=== PATIENT | male | born 1950 | race Caucasian/White ===

== ENCOUNTER → 2016-06-16 | Outpatient (CLI) | payer OTHER | LOC: FIMAGING 08:42 | PROVIDERS: ATTEND Nurse Practitioner | DX: R19.01 Right upper quadrant abdominal swelling, mass and lump (principal); N20.0 Calculus of kidney; B19.10 Unspecified viral hepatitis B without hepatic coma; I71.4 Abdominal aortic aneurysm, without rupture; B20 Human immunodeficiency virus [HIV] disease ==

== ENCOUNTER → 2016-12-07 | Outpatient (CLI) | payer OTHER | LOC: FIMAGING 13:14 | PROVIDERS: ATTEND Nurse Practitioner | DX: M50.31 Other cervical disc degeneration, high cervical region (principal); M50.321 Other cervical disc degeneration at C4-C5 level; M43.12 Spondylolisthesis, cervical region; M99.71 Connective tissue and disc stenosis of intervertebral foramina of cervical region ==

== ENCOUNTER 2016-12-10 17:27 | Inpatient (IN) | payer OTHER ==
--- NOTE | 2016-12-10 17:56 | EDPHY ---
H & P Smoking Status: Former smoker Time Seen by Provider: 12/10/16 17:39 HPI/ROS: CHIEF COMPLAINT: Fall, head injury HISTORY OF PRESENT ILLNESS: Patient is a 66-year-old male with multiple medical problems including hepatitis-B, hepatitis-C, HIV and previous PE. He is on warfarin for his previous pulmonary embolus 5 years ago. Patient states he fell sometime last night but he is unsure of the exact mechanism. He does not recall the event. He states that he spent the day cleaning his room. He is found by his brother and brought to the emergency department. Patient complains of mild lower lip pain. He feels mildly fatigued. He has no headache or neck pain. He has ongoing paresthesias in his hands. He denies chest pain. Mild shortness of breath yesterday but it is improved. No abdominal pain. No nausea or vomiting. No pelvic pain. He denies extremity pain. REVIEW OF SYSTEMS: My complete review of systems is negative except as mentioned in the HPI. ( Ashli Jasmine) Past Medical/Surgical History: Includes hepatitis-B, hepatitis-C, HIV, pulmonary embolus, DVT Past surgical history: Rotator cuff repair Social history: The patient does not smoke. Uses marijuana. (Ashli Jasmine ) Physical Exam: 36.4, 88/62, 128, 24, 92% on room air GENERAL: Disheveled, fatigued appearing, no acute distress, alert. HEENT: Patient has an irregular 3 cm laceration on his right scalp. This extends down to the skull. No palpable skull deformity. EYES: PERRLA, EOMI, normal to inspection. ENT: Airway intact, no dental, no malocclusion, no hemotympanum, patient has bruising behind his right ear.Patient has an abrasion to his lower lip. Mild swelling. NECK: The trachea is midline. There is no crepitus. The C-spine is nontender. NEXUS criteria is negative (no midline tenderness, no distracting injury, no altered mental status, no recent alcohol use, no focal neurologic deficit). RESPIRATORY: Clear to auscultation bilaterally, no rales, rhonchi or wheezing. There is no crepitus or palpable rib fractures. CVS: Regular rate and rhythm, no rubs, murmurs, or gallops. ABDOMEN: Soft, nontender, nondistended, normal bowel sounds, no bruising or abrasions. Pelvis: Stable. No tenderness palpation. Hips full range of motion. BACK: lidocaine patches in place. Normal to inspection, no spinal tenderness, no spinal step off, no notable bruising or abrasions. SKIN: Normal color, warm, dry. No pallor or diaphoresis. EXTREMITIES: Right upper extremity: Atraumatic. No visible signs of trauma. No tenderness palpation. Neurovascular intact distally. Left upper extremity: Atraumatic. No visible signs of trauma. No tenderness palpation. Neurovascular intact distally. Right lower extremity: Abrasion on right knee. No patellar tenderness to palpation. No other tenderness palpation. Neurovascular intact distally. The patient is an abrasion on his right toe. Left lower extremity: Atraumatic. No visible signs of trauma. No tenderness palpation. Neurovascular intact distally. NEURO/PSYCH: Alert and oriented x 3, GCS 15, slightly flat affect, normal motor sensory exam. (Ashli Jasmine) Constitutional: Initial Vital Signs Temperature (C) 36.4 C 12/10/16 17:34 Heart Rate 128 H 12/10/16 17:34 Respiratory Rate 24 H 12/10/16 17:34 Blood Pressure 88/62 L 12/10/16 17:34 O2 Sat (%) 92 12/10/16 17:34 O2 Delivery Mode Room Air O2 (L/minute) 2 Allergies/Adverse Reactions: No Known Allergies Allergy (Verified 12/10/16 19:53) Home Medications: Medication Instructions Recorded DULoxetine [Cymbalta 30 MG (RX)] 30 mg PO BID 10/30/12 Entecavir [Baraclude] 1 mg PO DAILY 10/30/12 Ritonavir [Norvir] 100 mg PO DAILY 10/30/12 Testosterone [Androgel] 1 nas TP HS 10/30/12 Atorvastatin Calcium [Atorvastatin 10 mg PO DAILY 12/10/16 Calcium] Darunavir Ethanolate [Prezista] 800 mg PO DAILY 12/10/16 OLANZapine [Olanzapine] 5 mg PO HS 12/10/16 Raltegravir Potassium [Isentress] 400 mg PO BID 12/10/16 Teriparatide [Forteo] 2.4 ml SQ DAILY 12/10/16 Warfarin Sodium [Coumadin 4MG (*)] 2 mg PO TUFR@16 12/10/16 Warfarin Sodium [Coumadin 4MG (*)] 4 mg PO SUMOWETHSA@12/10/16 lamiVUDine [Epivir 150 mg (*)] 150 mg PO HS 12/10/16 Medical Decision Making - Diagnostics Imaging Results: Imaging Impressions Cervical Spine CT 12/10/16 17:58 Impression: 1. No acute osseous abnormality seen about the cervical spine. 2. Degenerative disk disease along with facet hypertrophy involving the cervical spine as detailed above. 3. Incidental subluxations at C3-C4 and C4-C5 related to underlying facet hypertrophy. Findings discussed with Ashli Jasmine M.D. at 1840 hour, 12/10/2016. Chest X-Ray 12/10/16 17:58 Impression: 1. Decreased inspiration with increase in compressive changes at the lung bases. 2. Possible superimposed patchy infiltrate/pneumonia left base. Consider follow- up chest x-ray with improved inspiration at some point. Head CT 12/10/16 17:58 Impression: 1. Focal band of subarachnoid hemorrhage versus punctate cortical hemorrhage right posterior frontal lobe superior in a parasagittal location. 2. Laceration with soft tissue swelling over the right anterior parietal to posterior frontal bone without underlying fracture. If symptoms worsen, additional imaging may be necessary. Findings discussed with Ashli Jasmine at 1840 hour, 12/10/2016. Procedures: Procedure: Laceration repair. Verbal consent was obtained from the patient. The 7 cm laceration on the scalp was anesthetized in the usual fashion. The wound was irrigated, draped and explored to its base with a gloved finger. There were no deep structures involved. No tendon injury was identified. The wound was repaired with 5 0 Prolene, 9 simple interrupted sutures. The wound repair was simple. The procedure was performed by myself. (Channing Coto) ED Course/Re-evaluation: In the emergency department I met the patient on arrival. Noted is abnormal vital signs. I discussed the plan with the nurse. I answered the patient's questions I discussed the plan. Laboratory studies were obtained. Head CT and C-spine were ordered. I more the patient has C-spine from yesterday but this was prior to his fall. He does have numerous changes on his CT imaging from yesterday. I reviewed the patient's laboratory studies. Low sodium at 130. Potassium is 3.9. Creatinine is elevated 1.9. INR is 1.89. His total bili is elevated at 4.3. AST and ALT 90 in 51 respectively. Alk phos 84. Head CT: Please refer the dictated report by Dr. Tod Tenorio. The patient has a right frontal parasagittal cortical bleed. There is no shift. No subdural hematoma. On recheck the patient still was hypotensive with systolic blood pressures in the 80s. Because of this he was given normal saline 500 mL IV. Type and screen was ordered. There was a delay obtaining the CBC. Labs called. The patient's hematocrit is normal. On recheck the patient's pressure is 92/65 with the heart rate 110. Patient is lip clean. His right toe and right knee were cleaned and dressed. Patient's head laceration was repaired by the PA. Please refer to his note. I discussed the results with Dr. Fine from Neurosurgery. I discussed his CT findings as well as an INR 1.89. He will be the imaging. At this time he does not want reversal. I also discussed the case with Dr. Reeder from the hospitalist service. He will admit the patient. I discussed ongoing hypotension with Dr. Reeder. On recheck the patient's blood pressure is 94/68. Heart rate was 107. No lightheadedness or dizziness. Patient has a history of PE as well as DVT. However, his Coumadin is not therapeutic. In addition he has intracranial hemorrhage. This makes a complicated if he does have a pulmonary embolus causing his current symptoms. Ultrasound was ordered by Dr. Reeder. Dr. Reeder ordered antibiotics to cover for possible infection/sepsis. Procedure: Ultrasound guidance: Using the linear probe covered in a sterile sheath, a short axis of the vein was obtained. The vein was completely compressible and was identified as separate from the adjacent non-compressible arterial structure. Under real-time guidance, the introducer needle was observed up to the vein, and then punctured it. Central line placement: The indication for the procedure was hypotension. After verbal informed consent from patient; the risks were explained including bleeding, infection, and collapsed lung. Maximal sterile barrier technique was uses including cap, gown, sterile gloves, large sheet, hand washing and chlorhexidine prep. The area anesthetized with 1% lidocaine. The right IJ was punctured with a 19 gauge finder needle, then a wire introducer was placed, a triple-lumen was placed using Seldinger technique. There were no complications. Blood return low pressure, dark blood. The patient tolerated procedure well. CXR results: Normal placement. No pneumothorax as interpreted by myself. Radiologist interpretation is pending. The procedure was performed by myself. (Ashli Jasmine) Differential Diagnosis: My differential includes but is not limited to concussion, skull fracture, basilar skull fracture, subarachnoid hemorrhage, subdural hematoma, epidural hematoma, spinal injury, pneumothorax, hemothorax, laceration, foreign body, electrolyte abnormality, sugar abnormality, dehydration, encephalopathy (Ashli Jasmine) Critical Care Time: Patient required 45 minutes of critical care time. This is exclusive of any unbundled procedure. This is due the patient's abnormal vital signs, need for frequent rechecks, admission (Ashli Jasmine) - Data Points Laboratory Results: Laboratory Results 12/10/16 17:50 12/10/16 17:50 12/10/16 12/10/16 12/10/16 18:30 17:50 17:50 WBC RBC Hgb Hct MCV MCH MCHC RDW Plt Count MPV Neut % (Auto) Lymph % (Auto) [place] % (Auto) Eos % (Auto) Baso % (Auto) Nucleat RBC Rel Count Absolute Neuts (auto) Absolute Lymphs (auto) Absolute Monos (auto) Absolute Eos (auto) Absolute Basos (auto) Absolute Nucleated RBC Immature Gran % Immature Gran # PT INR APTT Sodium 130 mEq/L L mEq/L (134-144) Potassium 3.9 mEq/L mEq/L (3.5-5.2) Chloride 98 mEq/L mEq/L (97-110) Carbon Dioxide 17 mEq/l L mEq/l (22-31) Anion Gap 15 mEq/L mEq/L (8-16) BUN 26 mg/dL H mg/dL (7-23) Creatinine 1.9 mg/dL H mg/dL (0.7-1.3) Estimated GFR 36 Glucose 109 mg/dL H mg/dL (70-100) Calcium 9.3 mg/dL mg/dL (8.5-10.4) Total Bilirubin 4.3 mg/dL H mg/dL (0.1-1.4) Conjugated Bilirubin 1.7 mg/dL H mg/dL (0.0-0.5) Unconjugated Bilirubin 2.6 mg/dL H mg/dL (0.0-1.1) AST 90 IU/L H IU/L (17-59) ALT 51 IU/L IU/L (21-72) Alkaline Phosphatase 84 IU/L IU/L (38-126) Ammonia < 9.0 uMOL/L L uMOL/L (9.0-30.0) Total Protein 6.6 g/dL g/dL (6.3-8.2) Albumin 3.4 g/dL L g/dL (3.5-5.0) Lipase 32 IU/L IU/L (23-300) Ethyl Alcohol < 10 mg/dL mg/dL (0-10) Patient ABO/Rh A POSITIVE Antibody Screen NEGATIVE 12/10/16 12/10/16 17:50 17:50 WBC 7.65 10^3/uL 10^3/uL (3.80-9.50) RBC 4.60 10^6/uL 10^6/uL (4.40-6.38) Hgb 15.6 g/dL g/dL (13.7-17.5) Hct 44.7 % % (40.0-51.0) MCV 97.2 fL fL (81.5-99.8) MCH 33.9 pg pg (27.9-34.1) MCHC 34.9 g/dL g/dL (32.4-36.7) RDW 13.0 % % (11.5-15.2) Plt Count 94 10^3/uL L 10^3/uL (150-400) MPV 10.4 fL fL (8.7-11.7) Neut % (Auto) 90.7 % H % (39.3-74.2) Lymph % (Auto) 3.4 % L % (15.0-45.0) [place] % (Auto) 4.6 % % (4.5-13.0) Eos % (Auto) 0.0 % L % (0.6-7.6) Baso % (Auto) 1.0 % % (0.3-1.7) Nucleat RBC Rel Count 0.0 % % (0.0-0.2) Absolute Neuts (auto) 6.94 10^3/uL H 10^3/uL (1.70-6.50) Absolute Lymphs (auto) 0.26 10^3/uL L 10^3/uL (1.00-3.00) Absolute Monos (auto) 0.35 10^3/uL 10^3/uL (0.30-0.80) Absolute Eos (auto) 0.00 10^3/uL L 10^3/uL (0.03-0.40) Absolute Basos (auto) 0.08 10^3/uL 10^3/uL (0.02-0.10) Absolute Nucleated RBC 0.00 10^3/uL 10^3/uL (0-0.01) Immature Gran % 0.3 % % (0.0-1.1) Immature Gran # 0.02 10^3/uL 10^3/uL (0.00-0.10) PT 21.8 SEC H SEC (12.0-15.0) INR 1.89 H (0.83-1.16) APTT 47.6 SEC H SEC (23.0-38.0) Sodium Potassium Chloride Carbon Dioxide Anion Gap BUN Creatinine Estimated GFR Glucose Calcium Total Bilirubin Conjugated Bilirubin Unconjugated Bilirubin AST ALT Alkaline Phosphatase Ammonia Total Protein Albumin Lipase Ethyl Alcohol Patient ABO/Rh Antibody Screen Medications Given: Azithromycin 500 mg/ Dextrose 255 mls @ 255 mls/hr IV DAILY MARTIR PRN Reason: Protocol Stop: 01/09/17 21:29 Last Admin: 12/10/16 22:02 Dose: 255 mls Ceftriaxone Sodium/Dextrose (Rocephin 1 Gm (Premix)) 50 mls @ 100 mls/hr IV DAILY MARTIR PRN Reason: Protocol Stop: 01/09/17 21:29 Last Admin: 12/10/16 21:41 Dose: 50 mls Discontinued Medications Fentanyl (Sublimaze) 100 mcg IVP EDNOW ONE Stop: 12/10/16 22:08 Last Admin: 12/10/16 22:08 Dose: 100 mcg Sodium Chloride (Ns) 1,000 mls @ 0 mls/hr IV ONCE ONE; Wide Open PRN Reason: Protocol Stop: 12/10/16 17:59 Last Admin: 12/10/16 18:07 Dose: 1,000 mls Sodium Chloride (Ns) 500 mls @ 0 mls/hr IV ONCE ONE PRN Reason: Wide Open Stop: 12/10/16 18:50 Last Admin: 12/10/16 18:53 Dose: 500 mls Sodium Chloride (Ns) 500 mls @ 1,000 mls/hr IV EDNOW ONE PRN Reason: Protocol Stop: 12/10/16 19:54 Last Admin: 12/10/16 19:26 Dose: 500 mls Sodium Chloride (Ns) 1,000 mls @ 0 mls/hr IV ONCE ONE; Wide Open PRN Reason: Protocol Stop: 12/10/16 21:09 Last Admin: 12/10/16 21:10 Dose: 1,000 mls Departure - Departure Disposition: [facility] Inpatient Acute Clinical Impression: Renal insufficiency, Intracranial hemorrhage Laceration of head Qualifiers: Encounter type: initial encounter Location of open wound of head: scalp Foreign body presence: without foreign body Qualified Code(s): S01.01XA - Laceration without foreign body of scalp, initial encounter Lip laceration Qualifiers: Encounter type: initial encounter Qualified Code(s): S01.511A - Laceration without foreign body of lip, initial encounter Condition: Good
[2016-12-10] MEDS ORDERED: NS 1,000 ML IV ONE ×3 (17:58→23:32)
[2016-12-10 18:11] LABS: % IMMATURE GRANULYOCYTES 0.3 % (0.0-1.1); ABSOLUTE IMMATURE GRANULOCYTES 0.02 10^3/uL (0.00-0.10); ADD DIFF? NO; ADD MORPH? NO; ADD SCAN? YES; ATYPICAL LYMPHOCYTE FLAG 0 (0-99); FRAGMENT RBC FLAG 0 (0-99); HEMATOCRIT 44.7 % (40.0-51.0); HEMOGLOBIN 15.6 g/dL (13.7-17.5); LIPEMIA HEMOLYSIS FLAG 90 (0-99); MEAN CELL HEMOGLOBIN 33.9 pg (27.9-34.1); MEAN CELL HEMOGLOBIN CONCENTR. 34.9 g/dL (32.4-36.7); MEAN CELL VOLUME 97.2 fL (81.5-99.8); MEAN PLATELET VOLUME 10.4 fL (8.7-11.7); PLATELET CLUMPS FLAG 10 (0-99); PLATELET COUNT 94 10^3/uL (150-400)
[2016-12-10 18:12] LABS: LEFT SHIFT FLG 300 (0-99)
[2016-12-10 18:22] LABS: INR 1.89 (0.83-1.16); PROTIME(PATIENT) 21.8 SEC (12.0-15.0)
[2016-12-10 18:23] LABS: APTT 47.6 SEC (23.0-38.0)
[2016-12-10 18:31] LABS: ALANINE AMINOTRANSFERASE 51 IU/L (21-72); ALBUMIN 3.4 g/dL (3.5-5.0); ALKALINE PHOSPHATASE 84 IU/L (38-126); ANION GAP 15 mEq/L (8-16); ASPARTATE AMINOTRANSFERASE 90 IU/L (17-59); BILIRUBIN,TOTAL 4.3 mg/dL (0.1-1.4); BILIRUBIN-CONJUGATED 1.7 mg/dL (0.0-0.5); BILIRUBIN-UNCONJUGATED 2.6 mg/dL (0.0-1.1); CALCIUM 9.3 mg/dL (8.5-10.4); CARBON DIOXIDE 17 mEq/l (22-31); CHLORIDE 98 mEq/L (97-110); CREATININE 1.9 mg/dL (0.7-1.3); ETHANOL SERUM < 10 mg/dL (0-10); GLOMERULAR FILTRATION RATE 36; GLUCOSE 109 mg/dL (70-100); POTASSIUM 3.9 mEq/L (3.5-5.2); SODIUM 130 mEq/L (134-144); TOTAL PROTEIN 6.6 g/dL (6.3-8.2)
[2016-12-10] MEDS ORDERED: NS 500 ML IV ONE ×2 (18:49→19:25)
[2016-12-10 19:06] LABS: SCAN NEGATIVE
[2016-12-10] MEDS ORDERED: ONDANSETRON 4 MG/2 ML VIAL IVP PRN (21:33)
[2016-12-10] MEDS ORDERED: ONDANSETRON DISINTEGRATING 4 MG TAB PO PRN (21:33)
[2016-12-10] MEDS ORDERED: NS 1,000 ML IV SCH (21:45)
[2016-12-10] MEDS: AZITHROMYCIN IV 500 MG in D5W 250 ML IV SCH (22:02)
[2016-12-10] MEDS ORDERED: fentaNYL 100 MCG/2 ML INJ IVP ONE (22:07)
[2016-12-10] MEDS ORDERED: fentaNYL 100 MCG/2 ML INJ ONE (22:08)
--- NOTE | 2016-12-10 22:18 | GHP ---
[f rep st] HISTORY AND PHYSICAL DATE OF ADMISSION: 12/10/2016 HISTORY OF PRESENT ILLNESS: The patient is a pleasant 66-year-old gentleman with history of hepatit is C, HIV and PE for which he takes Coumadin. He presented to the ER with a fall and headache. The patient sounds like he had a fall last evening on the way walking to the bathroom. He denied antec edent chest pain, palpitations or loss of consciousness. He does not have a history of coronary dis ease but he does have hyperlipidemia. It is not clear that there was loss of consciousness but he d oes not recall the event. He had sustained a fairly large laceration. Today, he spent some time cl eaning his room. His [id number] brought him to the emergency department. In the emergency depa rtment, he had a CT scan of his head which showed a focal band of subarachnoid hemorrhage versus pun ctate cortical hemorrhage in the right posterior frontal lobe in the parasagittal location as well a s a laceration. His emergency department course was remarkable for tachycardia and hypotension. The patient present ed with blood pressure of 88/62 and he has been hovering in the 90s with heart rates in the low 100s . His INR is 1.9. Further history reveals that the patient felt some pain in his scapula in the back. It is not clear which side. He said he feels restricted when he tries to take a deep breath. He states this is no t previously to what his PE was. He has not had sputum but he has had a dry cough. He has not had fever. He has not had urinary sym ptoms. He does not have abdominal pain. In the emergency department, he received a 3000 mL bolus. Subsequently, a venous lactate was checke d after being in the ER for a few hours and it is elevated at 2.9. REVIEW OF SYSTEMS: Complete 10-point review of systems conducted and negative except as noted in th e HPI. PAST MEDICAL HISTORY: 1. Pulmonary embolism with pulmonary infarct in 2012, on warfarin. 2. Hepatitis C. 3. Status post treatment. 4. Hepatitis B. 5. HIV without AIDS. 6. Chronic anemia. SOCIAL HISTORY: He is . Nonsmoker. Minimal alcohol. ALLERGIES: No known drug allergies. HOME MEDICATIONS: Atorvastatin, warfarin, darunavir, duloxetine, entecavir, lamivudine, olanzapine, raltegravir, ritonavir, teriparatide, testosterone. FAMILY HISTORY: Reviewed and unremarkable. PHYSICAL EXAMINATION: VITAL SIGNS: Presenting vital signs: 36.4, blood pressure 88/62, pulse 120, breathing 24 times a minute, 92% on room air. GENERAL: No acute distress. Diaphoretic. HEENT: He has a fairly large laceration on his head that is sutured. . His oropharynx is other salvador clear. NECK: Supple without lymphadenopathy or JVD. LUNGS: Crackly bilaterally. HEART: S1 , S2. Tachycardic. ABDOMEN: Soft, nontender, nondistended. LOWER EXTREMITIES: Without edema. C rubi nontender. SKIN: Without rash. NEUROLOGIC: Nonfocal. LABORATORY DATA: White count 7.6, hematocrit 44, platelets are 94, thrombocytopenia is not new. IN R is 1.9. Venous lactate is elevated at 2.9. Sodium 130, potassium 3.9, chloride 98, bicarb 17, BU N 26, creatinine 1.9, glucose 109. Total bilirubin is 4.3, conjugated is 1.7. AST is elevated. Al kaline phosphatase is normal. Ammonia is less than 19. UA is pending. Alcohol level is negative. Head CT is as discussed in the HPI. Chest x-ray, interpreted by me, shows possible patchy infiltra te at the left base. C-spine CT shows no acute osseous abnormality. I discussed the case with Dr. Ashli Jasmine. ASSESSMENT/PLAN: A 66-year-old gentleman presents with a fall, subarachnoid hemorrhage, head lacera tion, acute kidney injury, elevated bilirubin and likely sepsis. 1. Sepsis. Source is unclear, possibly lungs, may be his right upper quadrant. I will cover him w ith ceftriaxone and azithromycin for community-acquired pneumonia and perform right upper quadrant u ltrasound. Blood cultures have been drawn. He has been bolused 3 L which is adequate for his sepsi s. Venous lactate is elevated; we will follow it. 2. Question pulmonary embolism. An alternative explanation could be syncope as a result of pulmona ry embolism. Hs INR is 1.9. I will not put him on a heparin drip. I am going to repeat a CT, ultr asound of his legs tonight, V/Q scan in the morning and follow. Certainly, if he has a stable bleed and evidence of a large pulmonary embolism with pulmonary hypertension, then a heparin drip could b e indicated. I will also check an echocardiogram. 3. Elevated bilirubin. Right upper quadrant ultrasound. 4. Human immunodeficiency virus. The patient does not appear to have acquired immunodeficiency syn drome. We will continue his retroviral therapy. 5. Head laceration. Sutures placed. 6. Subarachnoid hemorrhage. Neurosurgery will see the patient in the morning. This is a nonoperat camacho event. 7. Prophylaxis. Pharmacologic prophylaxis contraindicated for the reasons detailed above. 8. Anion gap acidosis. This is mild, likely secondary to sepsis and/or kidney injury. 9. Kidney injury, hypoperfused. We will give him IV fluids. Repeat in the morning. 10. Hyponatremia, mild, chronic. We will follow. DISPOSITION: Inpatient status. RISK: High. /[id number]/MODL
[2016-12-10] MEDS ORDERED: LIDOCAINE 2% JELLY 20 ML (UROJECT) UR ONE (23:13)
[2016-12-10] MEDS ORDERED: LIDOCAINE 2% JELLY 20 ML (UROJECT) ONE (23:14)
[2016-12-10 23:18] LABS: TROPONIN I 0.075 ng/mL (0.000-0.034)
[2016-12-10 23:40] LABS: COLOR AMBER; LEUKOCYTE ESTERASE,URINE NEGATIVE (NEGATIVE); NITRITE,URINE NEGATIVE (NEGATIVE)
[2016-12-10] MEDS ORDERED: NOREPINEPHRINE/NS 500 ML IV SCH (23:45)
[2016-12-10 23:52] LABS: GRANULAR CASTS 25-50 /lpf (0-1); MUCUS TRACE /lpf (NONE-1+); WBC,URINE 15-25 /hpf (0-3)
[2016-12-11] MEDS: RALTEGRAVIR 400 MG TAB PO SCH ×3 (00:13→21:18)
--- NOTE | 2016-12-11 00:13 | CPEKG ---
Heart Rate: 97 RR Interval: 619 P-R Interval: 192 QRSD Interval: 156 QT Interval: 392 QTC Interval: 498 P Caraway: 60 QRS Caraway: 94 T Wave Caraway: -6 EKG Severity - ABNORMAL ECG - EKG Impression: SINUS RHYTHM EKG Impression: RIGHT BUNDLE BRANCH BLOCK Electronically Signed By: Calvin Ferrell 11-Dec-2016 07:55:49
[2016-12-11] MEDS ORDERED: LACTULOSE 20 GM/30 ML UDCUP PO PRN (01:54)
[2016-12-11] MEDS ORDERED: BISACODYL 10 MG SUPP PR PRN (01:54)
[2016-12-11] MEDS ORDERED: MAGNESIUM HYDROXIDE 30 ML UDCUP PO PRN (01:54)
[2016-12-11 04:29] LABS: ADD MORPH? NO; ADD SCAN? YES; ATYPICAL LYMPHOCYTE FLAG 0 (0-99); FRAGMENT RBC FLAG 10 (0-99); HEMATOCRIT 31.1 % (40.0-51.0); HEMOGLOBIN 10.9 g/dL (13.7-17.5); LIPEMIA HEMOLYSIS FLAG 90 (0-99); MEAN CELL HEMOGLOBIN 34.1 pg (27.9-34.1); MEAN CELL VOLUME 97.2 fL (81.5-99.8); PLATELET CLUMPS FLAG 30 (0-99); PLATELET COUNT 75 10^3/uL (150-400); RED CELL DISTRIBUTION WIDTH 13.2 % (11.5-15.2)
[2016-12-11 04:32] LABS: INR 2.52 (0.83-1.16); LEFT SHIFT FLG 300 (0-99); PROTIME(PATIENT) 27.4 SEC (12.0-15.0)
[2016-12-11 04:49] LABS: ALANINE AMINOTRANSFERASE 45 IU/L (21-72); ALBUMIN 2.1 g/dL (3.5-5.0); ALKALINE PHOSPHATASE 54 IU/L (38-126); ANION GAP 10 mEq/L (8-16); ASPARTATE AMINOTRANSFERASE 75 IU/L (17-59); BILIRUBIN,TOTAL 2.9 mg/dL (0.1-1.4); CALCIUM 7.3 mg/dL (8.5-10.4); CARBON DIOXIDE 18 mEq/l (22-31); CHLORIDE 107 mEq/L (97-110); CREATININE 1.7 mg/dL (0.7-1.3); GLOMERULAR FILTRATION RATE 40; GLUCOSE 101 mg/dL (70-100); POTASSIUM 3.9 mEq/L (3.5-5.2); SODIUM 135 mEq/L (134-144); TOTAL PROTEIN 4.5 g/dL (6.3-8.2)
[2016-12-11 05:12] LABS: SCAN POSITIVE
[2016-12-11 05:13] LABS: ADD DIFF? YES
[2016-12-11 05:20] LABS: PLATELET ESTIMATE DECREASED (ADEQ)
[2016-12-11 05:21] LABS: TOXIC GRANULATION PRESENT
[2016-12-11 05:34] LABS: BILIRUBIN-CONJUGATED 1.8 mg/dL (0.0-0.5); BILIRUBIN-UNCONJUGATED 1.1 mg/dL (0.0-1.1)
[2016-12-11] MEDS: SENNOSIDES/DOCUSATE SODIUM TAB PO SCH ×2 (07:28→21:18)
[2016-12-11] MEDS: AZITHROMYCIN IV 500 MG in D5W 250 ML IV SCH (08:07)
[2016-12-11] MEDS: RITONAVIR 100 MG TAB PO SCH (08:17)
[2016-12-11] MEDS: DULoxetine 30 MG CAP PO SCH ×2 (08:17→21:18)
[2016-12-11] MEDS: DARUNAVIR ETHANOLATE 800 MG TAB PO SCH (08:17)
--- NOTE | 2016-12-11 08:23 | GCON ---
[f rep st] CONSULTATION NEUROSURGERY CONSULT DATE OF CONSULTATION: 12/11/2016 The patient was seen and evaluated at approximately 7:45 am in the ICU at [facility] . HISTORY OF PRESENT ILLNESS: The patient is a 66-year-old man with a history of chronic hepatitis C, HIV and pulmonary embolus, for which he takes Coumadin. He presented to the ER last night after a fall with a headache. He says he was walking to the bathroom and was having some mid-thoracic back pain which he says caused him to fall. He did not have a clear loss of consciousness, but did have a laceration to the right side of his head. A CT of the head was performed in the emergency departm ent, which showed trace traumatic subarachnoid hemorrhage over the right frontal convexity near the falx. He was completely neurologically intact. He had a repeat scan this morning on which I do not see any sign of blood at all and this appears normal. Of note, in the emergency department, he did have tachycardia and hypotension and there was some thought that he may have sepsis, so medicine lewis s been hydrating him and has admitted him to the ICU. REVIEW OF SYSTEMS: A 10-point review of systems is negative, other than that described above in the HPI today. PAST MEDICAL HISTORY: 1. Pulmonary embolism with pulmonary infarction in 2012 on Coumadin. 2. Hepatitis C. 3. Hepatitis B. 4. HIV. 5. Chronic anemia. SOCIAL HISTORY: The patient is . He is a nonsmoker and drinks minimal social alcohol. FAMILY HISTORY: Negative for traumatic brain bleeds. ALLERGIES: No known drug allergies. MEDICATIONS: 1. Atorvastatin. 2. Warfarin. 3. Darunavir. 4. Duloxetine. 5. . 6. Lamivudine. 7. Olanzapine. 8. Raltegravir. 9. Ritonavir. 10. Teriparatide. 11. Testosterone. PHYSICAL EXAM: VITAL SIGNS: Currently, he is afebrile with normal vital signs. He is awake, alert , and oriented x3. He is complaining of some mid-thoracic back pain. His cranial nerves 2-12 are g rossly normal. He has 5/5 strength at all muscle groups of the upper and lower limbs. His sensatio n is normal. He has mild jaundice, but otherwise appears to be normal. IMAGING REVIEW: See HPI. LABORATORY REVIEW: His white count was 7.6, hematocrit 44, platelets 94,000. INR was 1.8, lactate was 2.9, sodium 130, potassium 3.9, BUN is 26, creatinine 1.9, glucose 109. ASSESSMENT AND PLAN: The patient is a 66-year-old male with a number of extreme medical problems wh o had a fall last night with a tiny trace traumatic subarachnoid hemorrhage, that has resolved on th e scans this morning and his neurologic exam is normal. He does not need any further scanning or ne urosurgical intervention. I do not think that his Coumadin needs to be reversed at this time, but a s always risk, benefit analysis of continuing anticoagulation in a patient with some falls would be warranted. I do not think he needs any further neurosurgical followup for this problem, but we woul d be happy to see him at any time if it would be indicated. Please do not hesitate to contact us wi th any further questions or concerns, but we will sign off for now. Thanks very much for the regina garcia. /[id number]/DANIS
[2016-12-11] MEDS ORDERED: VANCOMYCIN 1 GM in NS 250 ML IV SCH (08:30)
[2016-12-11] MEDS ORDERED: VANCOMYCIN HCL/NORMAL SALINE 250 ML IV SCH (08:30)
[2016-12-11] MEDS ORDERED: Teriparatide [Forteo] 2.4 ML SQ SCH (09:00)
[2016-12-11] MEDS ORDERED: RALTEGRAVIR 400 MG TAB PO SCH (09:00)
--- NOTE | 2016-12-11 09:21 | HOSPPROG ---
Hospitalist Progress Note Assessment/Plan: Severe sepsis secondary to MSSA bacteremia. 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 Severe degenerative disease also noted. Reviewed images with ID and neurosurgery. Some concern we won't achieve source control without surgical drainage. S/P >6 L IVF's. Has not required pressors. Lactate normalized. -MRI with contrast per neurosurg recs -NPO for now -ID consulted, atbx tailored to Cefazolin -echo with no e/o vegetation Acute hypoxemic respiratory failure - Requiring 3 LPM O2. Query fluid overload after aggressive IVF resuscitation in ED. CT chest showed mod b/l pleural effusions. Images personally reviewed and interpreted with pulm and ID, suspect sympathetic effusions as these are b/l and symmetri. -consider thoracentesis in am, reversing INR today with IV Vit K -may benefit from diuresis when more stable Fall / ?syncope with small SAH - evaluated by neurosurgery and deemed stable. No neurodeficits. HIV - recent viral load <1 copy. CD4 299 12/2015. No AIDS defining illness to date. Followed by Corie Santiago at [facility]. Reviewed [place] notes. -cont anti-retrovirals -no reason to believe infectious issues are related to HIV RONAN - Suspect pre-renal, FeNa is 0.04%. Baseline Cr 1.2-1.4. Cr trending down with IVF's. -cont gentle IVF's pre/post contrast study H/O PE - INR therapeutic at 2.5 this am. Per review of [place] notes, this was unprovoked. He was initially treated for 6 months and then had an elevated d dimer so longterm anti-coagulation was recommended. -reversing INR as pt likely to require intervention as above -may not need ongoing anti-coagulation. will d/w heme tomorrow Hep B and Hep C - S/P Hep C tx. Elevated LFT's, bili may be elevated due to sepsis. RUQ shows nl CBD diameter. -will trend LFT's Full code Dispo - cont inpt, ICU care Pt is critically ill. A total of 100 minutes was spent at the bedside, providing critical care, reviewing records and discussing case with sub- specialists. Subjective: Pt feels poorly. Complains of back pain, sweaty, SOB. No CP. Poor appetite. Objective: Vital Signs Temp Pulse Resp BP Pulse Ox 37.4 C 109 H 27 H 96/72 L 93 12/11/16 07:00 12/11/16 09:00 12/11/16 09:00 12/11/16 09:00 12/11/16 09:00 Laboratory Results 12/11/16 04:06 12/11/16 04:06 12/10/16 12/11/16 12/12/16 05:59 05:59 05:59 Intake Total 7060 Output Total 330 Balance 6730 PT 27.4 SEC (12.0-15.0) H 12/11/16 04:06 INR 2.52 (0.83-1.16) H 12/11/16 04:06 - Physical Exam Constitutional: no apparent distress Eyes: PERRL Ears, Nose, Mouth, Throat: moist mucous membranes Cardiovascular: tachycardia Respiratory: no respiratory distress, inspiratory crackles Gastrointestinal: normoactive bowel sounds, soft, non-tender abdomen Skin: warm Musculoskeletal: generalized weakness, other (+c-spine tenderness) Neurologic: AAOx3 Psychiatric: interacting appropriately ICD10 Worksheet Patient Problems: Problems Problem Status Onset Intracranial hemorrhage Acute Laceration of head Acute Lip laceration Acute Renal insufficiency Acute C. difficile diarrhea Acute 10/30/14
[2016-12-11] MEDS ORDERED: NS W/ 20 KCl/L 1,000 ML IV SCH (09:30)
[2016-12-11] MEDS: IPRATROPIUM/ALBUTEROL 3 ML DEYVIAL IH SCH ×2 (09:35→13:41)
[2016-12-11] MEDS: HYDROmorphONE/DILAUDID 1 MG/ML INJ IVP PRN ×3 (10:03→20:59)
--- NOTE | 2016-12-11 10:13 | GCON ---
[f rep st] CONSULTATION SALES CONTRACTS ANALYST CONSULTATION REASON FOR ADMISSION: Sepsis. HISTORY OF PRESENT ILLNESS: The patient is a pleasant 66-year-old white male with extensive past me dical history, including hepatitis B, hepatitis C, HIV positivity. He had a pulmonary embolism in 2 013 with pulmonary infarction, for which he is still on warfarin. He presented to the emergency ronnie after a fall. Apparently occurred while walking to the bathroom. His main complaint currently is back pain. He states it is mid back, posterior, with radiation to the neck. He admits to a cough that he states is nonproductive, but mainly because it hurts for him to cough. He admits to some mi ld chest pain. There is no fever or night sweats. He was brought to the emergency room, where he w as found to have a small subarachnoid hemorrhage. Currently, he is not complaining of a headache. PAST MEDICAL HISTORY: Significant for anemia, hepatitis B, hepatitis C, pulmonary embolism, HIV pos itive without AIDS. ALLERGIES: No known medications. SOCIAL HISTORY: No history of tobacco use. Minimal alcohol use. He is , has good family corbett pport. MEDICATIONS: At home include testosterone, ritonavir, raltegravir, olanzapine, lamivudine, entecavi r, duloxetine, darunavir, warfarin, atorvastatin. PHYSICAL EXAM: VITAL SIGNS: Blood pressure 96/72, pulse is 109, respirations 27, temperature 37.4, oxygen saturation 93% on 3 L. GENERAL: He is a thin 66-year-old white male who is complaining of mild back pain. HEENT: Eyes PERRL, EOMI. Throat shows no erythema or tonsillar hypertrophy. NECK : Supple. There is no cervical adenopathy. HEART: Regular rate and rhythm, without murmurs, rubs , or gallops. LUNGS: Few bibasilar crackles, but no wheeze. ABDOMEN: Soft, nontender. Bowel martina nds are present in all 4 quadrants. EXTREMITIES: No clubbing, cyanosis, or edema. LABORATORY DATA: White count 6.2, hemoglobin 10, hematocrit 31, platelet count 75, sodium 135, potassium 3.9, chlorid e 107. CO2 is 18. BUN 31, creatinine 1.7. Glucose is 101. Troponins are mildly positive x2. Uri nalysis, pH is 5, specific gravity 1.026, 3+ blood, 15-25 WBCs. Alcohol level is negative. Blood c ultures are positive for gram-positive cocci in clusters. Chest x-ray is clear. Mild prominence of the pulmonary vasculature. CT scan of the head shows slight improvement in the cortical versus sub arachnoid hemorrhage and slight improvement in the tiny subdural hematomas. IMPRESSION: 1. Status post fall. 2. Intracranial hemorrhage with subarachnoid and subdural hemorrhage, improved. 3. Sepsis with bacteremia, source which is unclear. Must take into consideration possible pulmonar y source, however, with his back pain, query whether this may be epidural abscess. 4. Renal failure, improved. 5. Human immunodeficiency virus positive. 6. History of hepatitis B and hepatitis C. 7. History of pulmonary embolism with pulmonary infarction. He has been on Coumadin since 2013. 8. History of anemia. RECOMMENDATIONS: 1. Agree with broad-spectrum antibiotics. 2. Agree with CT scan of the chest. 3. Would assess his T and C-spine with MRI. 4. Continue his current home medication. 5. DVT and PE prophylaxis. 6. Stress ulcer prophylaxis. 7. Agree with Infectious Disease consult. /[id number]/MODL
[2016-12-11] MEDS: ENTECAVIR 1 MG PO SCH (10:21)
--- NOTE | 2016-12-11 10:39 | ECHO ---
[id number] + + [address] : : [place] [address] : : [phone] + Adult Echocardiographic Report + --------+ :Name: RAHEEM EMERY TStudy Date: 12/11/2016 08:37 AM : : Hospital Admission Number: [id number] Locat ion: 255: :: 1950 Gender: Male Height: 72 in : :Age: 66 yrs Race: WH Weight: 179 l b : :Reason For Study: Hypotension : : BSA: 2.0 mete rs2 : + --------+ MMode/2D Measurements \T\ Calculations IVSd: 0.97 cm LVIDd: 5.3 cm FS: 44.0 % Ao root diam: LVPWd: 1.0 cm LVIDs: 2.9 cm EDV(Teich): 4.5 cm 133.2 ml LA dimension: ESV(Teich): 3.8 cm 33.5 ml EF(Teich): 74.9 % LVLd ap4: 7.3 cm SV(MOD-sp4): EDV(MOD-sp4): 70.0 ml 109.0 ml LVLs ap4: 6.5 cm ESV(MOD-sp4): 39.0 ml EF(MOD-sp4): 64.2 % Normal Measurement Values: + + :LVIDd (3.5-5.7cm) IVSd (0.6-1.1cm) LVPWd (0.6-1.1cm) Aortic Root (2.0-3.7cm)Left Atrium (1.5-4.0cm): :LV Vol(d) (76-115ml) LV Vol(s) (29-48ml) Ejec Fraction (50-65%)PV Julio César (0.6- 1.2m/s) TV Julio César (0.4-1.0m/s) : :MV E Julio César (0.8-1.0m/s)MV A Julio César (0.3-1.0m/s)LVOT Julio César (0.7-1.2m/s) Asc Ao Julio César ( 0.9-1.8m/s) : + + Doppler Measurements \T\ Calculations MV E max julio césar: 38.5 cm/sec Ao V2 max: 105.9 cm/sec TR max julio césar: 294.5 cm/sec MV A max julio césar: 76.0 cm/sec Ao max P.5 mmHg TR max P.7 mmHg MV E/A: 0.51 RAP systole: 5.0 mmHg RVSP(TR): 39.7 mmHg Left Ventricle The left ventricle is normal in size. There is normal left ventricular wall thickness. Left ventricular systolic function is normal. Ejection Fraction = 65-70%. Septal motion is consistent with conduction abnormality. Right Ventricle The right ventricle is normal in size and function. Atria The left atrial size is normal. Right atrial size is normal. Mitral Valve The mitral valve is normal in structure and function. There is mild mitral regurgitation. Tricuspid Valve Normal tricuspid valve. There is mild to moderate tricuspid regurgitation. Aortic Valve The aortic valve is trileaflet. The aortic valve opens well. There is no aortic stenosis. There is no aortic insufficiency. Pulmonic Valve The pulmonic valve is not well visualized. Mild pulmonic valvular regurgitation. Great Vessels The aortic root is normal size. Borderline dilated ascending aorta. Pericardium/Pleural There is no pericardial effusion. Conclusion A complete two-dimensional transthoracic echocardiogram was performed (2D, M-mode, Doppler and color flow Doppler). (1) Left ventricular systolic ejection fraction was normal (65-70%) - normal wall motion with septal dyskinesis - query BBB (2) No left ventricular hypertrophy (3) Diastolic dysfunction was not clearly assessed in this study (4) Normal right ventricular size and function (5) Normal atrial dimensions (6) Mild mitral regurgitation (7) Trileaflet aortic valve without insufficiency or sclerosis (8) Mild to moderate tricuspid regurgitation - RVSP was estimated to be grossly normal (9) Grossly normal pulmonic valve with mild insufficiency (10) In comparison to prior echocardiograms, unchanged LVEF, atrial dimensions have normalized, and tricuspid regurgitation has progressed slightly. Final Reading Physician: Shannon Tirado signed on 12/11/2016 10:37 AM Ordering Physician: Mateus Reeder Performed By: Jess Do RDCS
[2016-12-11] MEDS ORDERED: HYDROmorphONE/DILAUDID 2 MG/ML INJ ONE (12:29)
[2016-12-11] MEDS: ACETAMINOPHEN 325 MG TAB PO PRN (13:22)
--- NOTE | 2016-12-11 13:24 | CPEKG ---
Heart Rate: 134 RR Interval: 448 P-R Interval: 184 QRSD Interval: 172 QT Interval: 364 QTC Interval: 544 P [place]: 107 QRS [place]: 91 T Wave [place]: -40 EKG Severity - ABNORMAL ECG - EKG Impression: UNDETERMINED RYTHM EKG Impression: PAIRED VENTRICULAR PREMATURE COMPLEXES EKG Impression: RBBB AND LPFB Electronically Signed By: Calvin Ferrell 11-Dec-2016 16:07:23
[2016-12-11] MEDS ORDERED: LORazepam 0.5 MG TAB PO ONE (13:33)
[2016-12-11] MEDS: Teriparatide [Forteo] 2.4 ML SQ SCH (13:49)
[2016-12-11] MEDS: ceFAZolin 2 GM/DEXTROSE 100 ML IV SCH ×2 (13:57→21:26)
[2016-12-11] MEDS ORDERED: WARFARIN SODIUM 4 MG TAB PO SCH (16:00)
[2016-12-11] MEDS: LEVALBUTEROL 0.63 MG/3 ML DEYVIAL IH SCH ×2 (16:18→22:32)
[2016-12-11] MEDS ORDERED: PHYTONADIONE 5 MG in NS 50 ML IV ONE (16:30)
[2016-12-11] MEDS ORDERED: *PHM DO NOT USE-LORazepam 1 MG/ML IV NEWBORN SYR IV PRN (16:33)
[2016-12-11] MEDS ORDERED: LORazepam 2 MG/ML INJ IV PRN (16:44)
--- NOTE | 2016-12-11 17:12 | SOAPPROG ---
SOAP Progress Note Assessment/Plan: Please see prior dictation for discussion. I updated Dr Toro on the plan as well as the Patient and his . His PE is reassuring and is 5/5 BUE/BLE =. No UMN with neg hoffmans/no clonus/intact babinskis. Dr Alcala updated as well. Pending MRI of the C spine with contrast 12/11/16 17:10 Objective: Vital Signs Temp Pulse Resp BP Pulse Ox 37.5 C 102 H 25 H 106/79 97 12/11/16 16:00 12/11/16 17:00 12/11/16 17:00 12/11/16 17:00 12/11/16 17:00 Microbiology 12/11/16 10:30 - Final Sputum, Expectorated 12/10/16 21:06 Blood Panel (PCR) - Final Blood S.aureus Methicillin Suscept. Laboratory Results 12/11/16 04:06 12/11/16 04:06 12/10/16 12/11/16 12/12/16 05:59 05:59 05:59 Intake Total 7060 250 Output Total 330 325 Balance 6730 -75 PT 27.4 SEC (12.0-15.0) H 12/11/16 04:06 INR 2.52 (0.83-1.16) H 12/11/16 04:06 ICD10 Worksheet Patient Problems: Problems Problem Status Onset Intracranial hemorrhage Acute Laceration of head Acute Lip laceration Acute Renal insufficiency Acute C. difficile diarrhea Acute 10/30/14
[2016-12-11] MEDS ORDERED: GADOBUTROL 10 ML VIAL IVP ONE (18:52)
--- NOTE | 2016-12-11 19:34 | GCON ---
[f rep st] CONSULTATION INFECTIOUS DISEASE CONSULTATION REFERRING PHYSICIAN: Katarina Toro MD REASON FOR CONSULTATION: Staph aureus bacteremia. HISTORY OF PRESENT ILLNESS: The patient is a 66-year-old male, who is a patient of our [facility], who presented to [facility] Emergency Room on 12/10/2016 complaining of a fall. The p atient was on warfarin secondary to a previous pulmonary embolus, and stated he fell sometime the ght prior to admission. He was evaluated, and found to have a small focal subarachnoid hemorrhage i n the right posterior frontal lobe superior in a parasagittal location. He was evaluated by Neurosu rgery, who felt that on the repeat scan the morning after his small bleed had resolved, and his neur ologic exam was normal, and did not need any further intervention. However, the patient did have bl ood cultures drawn upon admission, which quickly turned positive for methicillin sensitive Staph aur eus. He was started initially on vancomycin and azithromycin. This was transitioned over to cefazo frida 2 g IV q.8 hours. Currently, he is resting in his hospital bed. He complains of neck pain. He received an MRI earlier today, which showed significant cervical spine prevertebral edema from C3-C 5. Also showed moderate to severe central canal stenosis. PAST MEDICAL HISTORY: 1. HIV, virally controlled. 2. Hepatitis B. 3. Hepatitis C. 4. Pulmonary embolism history. 5. Chronic anemia. PAST SURGICAL HISTORY: None noted. MEDICATIONS: ANTIBIOTICS: 1. Vancomycin. 2. Azithromycin. ALLERGIES: No known drug allergies. SOCIAL HISTORY: The patient is . No tobacco use. Minimal alcohol use. FAMILY HISTORY: Reviewed, but noncontributory. REVIEW OF SYSTEMS: Other than that detailed above in the history of present illness, a comprehensiv e 10-system review is negative. PHYSICAL EXAMINATION: VITAL SIGNS: Temperature maximum is 38.0, temperature current is 38.0, heart rate is 110, respiratory rate is 22, blood pressure is 124/87. GENERAL: The patient is a well-for med, well-nourished, older male, in no acute distress. He is mildly toxic in appearance. He is elliott rt and oriented x3. He is in a pleasant demeanor. HEENT: Normocephalic. Small trauma secondary t o fall. Small laceration on scalp. No scleral icterus. No oral lesion. No drainage from the nare s. Eyes, lids and conjunctivae are within normal limits. Pupils are equal and round bilaterally. NECK: Supple. No meningismus. LUNGS: Clear to auscultation bilaterally with good effort. HEART: Tachycardic, but regular. No murmur, rub, or gallop noted. SKIN: Warm and dry to the touch. No rash or lesion seen. MUSCULOSKELETAL: No muscle belly tenderness is noted. No joint line effusio n or arthritis is seen. NEURO: Cranial nerves 2-12 seem to be intact. Peripheral sensation seems intact in the extremities. TEST DATA: LABORATORY DATA: The patient has a CBC dated 12/11/2016, shows a white blood cell count of 6.24, hemoglobin of 10.9, hematocrit 31.1, platelet count of 75. Differential shows 57 segmente d neutrophils, and 32% band forms. Serum chemistries on 12/11/2016 show a sodium of 135, potassium of 3.9, chloride 107, bicarbonate of 18, BUN of 31, and creatinine of 1.7. MICROBIOLOGIC DATA: The patient has blood cultures dated 12/10/2016, which is growing methicillin s ensitive Staph aureus in 2 sets. ASSESSMENT: Methicillin-sensitive staphylococcus aureus bacteremia and sepsis, likely secondary to cervical prevertebral inflammation and possible associated diskitis. MRI was done without contrast, so unclear whether disk spaces are inflamed. Would continue the cefazolin 2 g IV q.8 hours. The p atient actually has a fairly decent creatinine clearance calculated. We will talk with Spine and Ne urosurgery about debridement and drainage of areas in the C-spine that are involved with infection. I suspect this is going to be needed in order to provide any sort of source control, in order to co ntrol the bacteremia. We will repeat blood cultures tomorrow. PLAN: 1. Repeat blood cultures in the morning. 2. Continue cefazolin 2 g IV q.8 hours. 3. Discuss with Neurosurgery about source control at surgical debridement of the C-spine. /[id number]/MODL
[2016-12-11] MEDS: OLANZapine 5 MG TAB PO SCH (21:18)
[2016-12-11] MEDS: TESTOSTERONE TP SCH (21:20)
--- NOTE | 2016-12-11 22:38 | CPEKG ---
Heart Rate: 161 RR Interval: 373 QRSD Interval: 148 QT Interval: 304 QTC Interval: 498 QRS [place]: 142 T Wave [place]: -33 EKG Severity - ABNORMAL ECG - EKG Impression: EXTREME TACHYCARDIA WITH WIDE COMPLEX, NO FURTHER RHYTHM ANALYSIS ATTEMPTED Electronically Signed By: Calvin Ferrell 12-Dec-2016 08:54:33
[2016-12-11] MEDS: LORazepam 2 MG/ML INJ IV PRN (22:58)
[2016-12-11] MEDS ORDERED: NS 1,000 ML IV ONE (23:30)
[2016-12-11] MEDS: DILTIAZEM 125 MG in D5W 125 ML IV SCH (23:45)
[2016-12-12] MEDS ORDERED: DEXMEDETOMIDINE HCL 400 MCG in NS 100 ML IV SCH (00:30)
[2016-12-12] MEDS: HYDROmorphONE/DILAUDID 1 MG/ML INJ IVP PRN ×5 (01:10→20:36)
--- NOTE | 2016-12-12 02:30 | GPROG ---
[f rep st] PROGRESS NOTE CHART UPDATE Dr. Alcala was consulted this morning and did see and evaluate the patient for a small traumatic suba rachnoid bleed. We were notified this afternoon and that the patient had some neck pain and back pa in and an MRI of the cervical and thoracic spine was obtained. On the MRI it was noted to have some prevertebral swelling noted from C2-C5 as well as an epidural fluid collection noted in the lower c ervical upper thoracic spine from approximately C5-6 down to T1-2. I saw and evaluated the patient as well as spoke with Dr. Rush and Dr. Toro from Internal Medicine and Infectious Disease. I s poke with the daughter, who is an ICU nurse as well. The patient did get a noncontrast study. I re viewed the images with Dr. Bay and he recommended an MRI of the cervical spine with contrast. I placed a phone call the radiology and spoke with Dr. Pablito Ramirez and reviewed the GFR of 40 and th e creatinine of 1.7, and he felt comfortable with administering a dose of gadolinium for a contraste d study to further delineate the fluid collection. A call was attempted to be placed with Dr. Tierra ch and to update her on the plan at this point, we required a contrasted study of the cervical spine . I will review this with Dr. Alcala once this is obtained. Dr. Alcala will follow up with the patie greyson later this afternoon and early evening. Will continue with neuro checks on the patient. They we re instructed to call if any neurologic changes occur. /[id number]/MODL
[2016-12-12 03:23] LABS: ABSOLUTE NRBC COUNT 0.02 10^3/uL (0-0.01); ADD DIFF? YES; ADD MORPH? NO; ATYPICAL LYMPHOCYTE FLAG 0 (0-99); FRAGMENT RBC FLAG 0 (0-99); HEMOGLOBIN 11.9 g/dL (13.7-17.5); LIPEMIA HEMOLYSIS FLAG 90 (0-99); NRBC-AUTO% 0.3 % (0.0-0.2); PLATELET CLUMPS FLAG 0 (0-99)
[2016-12-12 03:25] LABS: HEMATOCRIT 34.7 % (40.0-51.0); MEAN CELL HEMOGLOBIN 33.9 pg (27.9-34.1); MEAN CELL HEMOGLOBIN CONCENTR. 34.3 g/dL (32.4-36.7); MEAN CELL VOLUME 98.9 fL (81.5-99.8); MEAN PLATELET VOLUME 10.3 fL (8.7-11.7); PLATELET COUNT 53 10^3/uL (150-400); RED BLOOD CELL COUNT 3.51 10^6/uL (4.40-6.38)
[2016-12-12 03:27] LABS: % IMMATURE GRANULYOCYTES 10.2 % (0.0-1.1); ADD SCAN? NO; LEFT SHIFT FLG 300 (0-99)
[2016-12-12 03:31] LABS: INR 1.54 (0.83-1.16); PROTIME(PATIENT) 18.5 SEC (12.0-15.0)
[2016-12-12 03:52] LABS: ALANINE AMINOTRANSFERASE 48 IU/L (21-72); ALBUMIN 2.3 g/dL (3.5-5.0); ALKALINE PHOSPHATASE 53 IU/L (38-126); ANION GAP 9 mEq/L (8-16); ASPARTATE AMINOTRANSFERASE 73 IU/L (17-59); BILIRUBIN,TOTAL 2.5 mg/dL (0.1-1.4); BILIRUBIN-CONJUGATED 1.9 mg/dL (0.0-0.5); BILIRUBIN-UNCONJUGATED 0.6 mg/dL (0.0-1.1); CALCIUM 7.4 mg/dL (8.5-10.4); CARBON DIOXIDE 18 mEq/l (22-31); CHLORIDE 114 mEq/L (97-110); CREATININE 1.5 mg/dL (0.7-1.3); GLOMERULAR FILTRATION RATE 47; GLUCOSE 112 mg/dL (70-100); LACTATE DEHYDROGENASE 749 IU/L (313-618); POTASSIUM 4.2 mEq/L (3.5-5.2); SODIUM 141 mEq/L (134-144); TOTAL PROTEIN 4.7 g/dL (6.3-8.2)
[2016-12-12 03:57] LABS: PLATELET ESTIMATE DECREASED (ADEQ); TOXIC GRANULATION PRESENT; TOXIC VACUOLIZATION PRESENT
[2016-12-12] MEDS: ceFAZolin 2 GM/DEXTROSE 100 ML IV SCH ×3 (05:53→21:54)
[2016-12-12] MEDS: LEVALBUTEROL 0.63 MG/3 ML DEYVIAL IH SCH ×4 (06:15→20:04)
--- NOTE | 2016-12-12 07:15 | NEUSURGPN ---
Assessment/Plan: A: 66 yo M s/p fall with frontal tSAH, neck pain. MRI c/ T spine with epidural fluid collection. Plan: -MRI C spine w/contrast reviewed by Dr Alcala, epidural phlegmon noted. Larger fluid collection noted retropharyngeal space. -Neuro intact on exam. On precedex for agitation -ID following on cefazolin, repeat blood cx today -Currently no plans for sx - nothing present to be drained. If prevertebral area requires drainage would need ENT involvement. -Pt seen and d/w Dr Alcala -Call NS with any questions Subjective: Pt sleeping in bed Objective: Sleeping on precedex, awakens easily NAD VSS MAEx4 Follows all commands Motor 5/5 BUE/BLE Urinary Catheter in Place: Yes Urinary Catheter Indication: Acute Urinary Retention Catheter Insertion Date: 12/10/16 - Physician Discussed Patient with Dr.: Alcala Patient Seen by : [facility] Neurosurgery Physical Exam - Vitals, I&O, Labs I and O 12/11/16 12/12/16 12/13/16 05:59 05:59 05:59 Intake Total 7060 4457 Output Total 330 1275 Balance 6730 3182 Weight 85.1 kg Intake: Oral (ml) 60 250 IV Intake (ml) 3000 IV Infused (ml) 4000 4207 Dexmedetomidine HCl 400 32 mcg In Ns 100 ml @ Titrate IV CONT MARTIR Rx#: [id number] Diltiazem 125 mg In D5w 30 125 ml @ Per Protocol IV CONT MARTIR Rx#:[id number] NS W/ 20 KCl/L 1,000 ml @ 1651 100 mls/hr IV CONT MARTIR Rx#:[id number] Ns 1,000 ml @ 75 mls/hr 2494 IV CONT MARTIR Rx#: [id number] Output: Urine (ml) 330 1275 Catheter 240 1275 Other: Number of Stools Catheter 1 Microbiology 12/11/16 10:30 - Final Sputum, Expectorated 12/10/16 21:06 Blood Panel (PCR) - Final Blood S.aureus Methicillin Suscept. Vital Signs Temp Pulse Resp BP Pulse Ox 36.6 C 105 H 14 105/67 98 12/12/16 07:00 12/12/16 07:00 12/12/16 07:00 12/12/16 07:00 12/12/16 07:00 Laboratory Results 12/12/16 03:10 12/12/16 03:10 ICD10 Worksheet Patient Problems: Problems Problem Status Onset Intracranial hemorrhage Acute Laceration of head Acute Lip laceration Acute Renal insufficiency Acute C. difficile diarrhea Acute 10/30/14
--- NOTE | 2016-12-12 08:38 | PCMIDPN ---
Assessment/Plan: Assessment/Plan: 1. MSSa bacteremia/sepsis with Anterior right epidural collection C6-T1: - f/u blood cx today -Currently on Ancef therapy -Cervical MRI images reviewed. prevertebral edema vs collectoin and small anterior epidural collection -Recommend ENT evaluation given above. -Appreciate NSG eval -recommend thoracentesis to further evaluate for empyema. -If f/u blood cx continue to remain positive then source control will need to be addressed further. - Care coordinated with manager route team, RN, hospitalist team Meds Ancef 2g q8- 12/11/16. Subjective: Afebrile. Tachypneic and wheezing today, more so when reclined back. Better when more upright. Some cough, mild phlegm. c/o neck pain. Swelling noted in anterior neck, fluctuant. denies abd pain. Per RN, more oriented today, less hallucinations. HR better this am. Objective: Vital Signs Temp Pulse Resp BP Pulse Ox 36.1 C 97 16 105/67 98 12/12/16 08:00 12/12/16 08:00 12/12/16 08:00 12/12/16 08:00 12/12/16 08:00 Microbiology 12/11/16 10:30 - Final Sputum, Expectorated 12/10/16 21:06 Blood Panel (PCR) - Final Blood S.aureus Methicillin Suscept. Laboratory Results 12/12/16 03:10 12/12/16 03:10 12/11/16 12/12/16 12/13/16 05:59 05:59 05:59 Intake Total 7060 4457 Output Total 330 1275 Balance 6730 3182 - Physical Exam General Appearance: alert, other (tachypneic) EENT: thrush, other (anterior neck and upper chest swelling. fluctuant. right neck central line noted.) Neck: other (see above.) Cardiac/Chest: tachycardia Extremities: No swelling Abdomen: normal bowel sounds, non-tender, soft, No distended Skin: other (few scattered scabs on extremities.) ICD10 Worksheet Patient Problems: Problems Problem Status Onset Intracranial hemorrhage Acute Laceration of head Acute Lip laceration Acute Renal insufficiency Acute C. difficile diarrhea Acute 10/30/14
--- NOTE | 2016-12-12 08:38 | PDINTPN ---
Supervisor Lens Generating Progress Note Assessment/Plan: Assessment/Plan: * Sepsis-epidural in retropharyngeal fluid collection likely source. -continue broad-spectrum antibiotics * Epidural phlegmon-possible abscess. Neuro surgery does not feel surgery is warranted at this time * Retro pharyngeal fluid collection-query abscess -will consult ENT for source management * HIV positive * History of hepatitis C * SVT-continue Cardizem for now * Possible pneumonia-consider broadening out antibiotic coverage * Cardiac arrhythmia-SVT. Improved on Cardizem drip and IV fluids * History of PE * Respiratory failure-stable on minimal supplemental oxygen but looks uncomfortable -will check ABG Case discussed with ENT, Infectious Disease and nursing. Subjective: Sitting up in bed. Appears uncomfortable. Patient states that he is breathless. Objective: Vital Signs Temp Pulse Resp BP Pulse Ox 36.1 C 97 16 105/67 98 12/12/16 08:00 12/12/16 08:00 12/12/16 08:00 12/12/16 08:00 12/12/16 08:00 Microbiology 12/11/16 10:30 - Final Sputum, Expectorated 12/10/16 21:06 Blood Panel (PCR) - Final Blood S.aureus Methicillin Suscept. Laboratory Results 12/12/16 03:10 12/12/16 03:10 12/11/16 12/12/16 12/13/16 05:59 05:59 05:59 Intake Total 7060 4457 Output Total 330 1275 Balance 6730 3182 PT 18.5 SEC (12.0-15.0) H D 12/12/16 03:10 INR 1.54 (0.83-1.16) H 12/12/16 03:10 Laboratory Results 12/12/16 03:10 12/12/16 03:10 12/12/16 03:10 Calcium 7.4 mg/dL L mg/dL (8.5 - 10.4) Total Bilirubin 2.5 mg/dL H mg/dL (0.1 - 1.4) Conjugated Bilirubin 1.9 mg/dL H mg/dL (0.0 - 0.5) Unconjugated Bilirubin 0.6 mg/dL mg/dL (0.0 - 1.1) AST 73 IU/L H IU/L (17 - 59) ALT 48 IU/L IU/L (21 - 72) Alkaline Phosphatase 53 IU/L IU/L (38 - 126) Lactate Dehydrogenase 749 IU/L H IU/L (313 - 618) Total Protein 4.7 g/dL L g/dL (6.3 - 8.2) Albumin 2.3 g/dL L g/dL (3.5 - 5.0) 12/11/16 10:30 - Final Sputum, Expectorated Sputum Culture - Pending 12/10/16 21:06 Blood Culture - Preliminary Blood Blood Panel (PCR) - Final Gram Positive Cocci Clusters S.aureus Methicillin Suscept. Physical Exam - Physical Exam General Appearance: alert, mild distress EENT: PERRL/EOMI, normal ENT inspection Neck: non-tender, other (Swelling anterior neck soft tissue) Respiratory: respiratory distress (Mild), crackles (Bibasilar), No stridor, No wheezing Cardiac/Chest: normal peripheral pulses, regular rate, rhythm Peripheral Pulses: 2+: carotid (R), carotid (L), femoral (R), femoral (L), dorsalis-pedis (R), dorsalis-pedis (L) Abdomen: normal bowel sounds, non-tender, soft Male Genitalia: deferred Rectal: deferred Skin: normal color, warm/dry Extremities: normal range of motion, non-tender, normal inspection, normal capillary refill ICD10 Worksheet Patient Problems: Problems Problem Status Onset Intracranial hemorrhage Acute Laceration of head Acute Lip laceration Acute Renal insufficiency Acute C. difficile diarrhea Acute 10/30/14
[2016-12-12 10:06] LABS: LACTATE DEHYDROGENASE 670 IU/L (313-618)
[2016-12-12] MEDS: RALTEGRAVIR 400 MG TAB PO SCH ×2 (10:28→20:38)
[2016-12-12] MEDS: DULoxetine 30 MG CAP PO SCH ×2 (10:28→20:38)
[2016-12-12] MEDS: SENNOSIDES/DOCUSATE SODIUM TAB PO SCH ×2 (10:28→20:37)
[2016-12-12] MEDS: ENTECAVIR 1 MG PO SCH (10:28)
[2016-12-12] MEDS: DARUNAVIR ETHANOLATE 800 MG TAB PO SCH (10:28)
[2016-12-12] MEDS: RITONAVIR 100 MG TAB PO SCH (10:28)
[2016-12-12] MEDS: Teriparatide [Forteo] 2.4 ML SQ SCH (10:29)
[2016-12-12] MEDS ORDERED: LIDOCAINE 1% 300 MG/30 ML SDV ONE (12:00)
[2016-12-12 14:20] LABS: LD, PLEURAL FLUID 801 IU/L
--- NOTE | 2016-12-12 14:30 | HOSPPROG ---
Hospitalist Progress Note Assessment/Plan: Severe sepsis secondary to MSSA bacteremia - suspect source is epidural abscess C6-T1 (small, 1.2 x 0.4 cm). Neurovascularly intact. There is also pre- vertebral inflammation which is more prominent though unclear if this is infectious vs edema. Severe degenerative disease also noted. In addition, pt presented with trauma / fall. Reviewed images with Radiology this am. Some concern we won't achieve source control without surgical drainage of epidural fluid collection, though no surgery planned by neurosurgery. S/P >6 L IVF's. Has not required pressors. Lactate normalized. -Cont Cefazolin -ENT to consult today regarding pre-vertebral edema and increased neck swelling, ?indication for steroids -repeat BCx's this am. If not clearing, need to push for surgical intervention -remains NPO, will pursue swallow eval -echo with no e/o vegetation Acute hypoxemic respiratory failure - Requiring [address] chest showed mod b /l pleural effusions. Images personally reviewed and interpreted with pulm and ID, suspect sympathetic effusions as these are b/l and symmetric. Query fluid overload. -thoracentesis this am to ensure no infectious source in the lungs - exudate by LDH, transudate by protein. No orgs on gram stain. -may benefit from diuresis when more stable Fall with small SAH - evaluated by neurosurgery and deemed stable. No neurodeficits. Agitation / Anxiety - required precedex overnight, now off. -prn ativan SVT - occurred overnight, resolved with IV diltiazem. HIV - recent viral load <1 copy. CD4 299 12/2015. No AIDS defining illness to date. Followed by Corie Santiago at [facility]. Reviewed [facility] notes. -cont anti-retrovirals -no reason to believe infectious issues are related to HIV RONAN - Suspect pre-renal, FeNa is 0.04%. Baseline Cr 1.2-1.4. Cr trending down with IVF's. -cont gentle IVF's pre/post contrast studies and while NPO H/O PE - INR reversed yesterday with Vit K for interventions today. Per review of [facility] notes, this was an unprovoked PE. 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 Discussed with Dr. Andorsky today, who notes 25% recurrence rate. He recommends resuming Coumadin when medically stable, no bridging needed. Hep B and Hep C - S/P Hep C tx. Elevated LFT's, bili may be elevated due to sepsis. RUQ shows nl CBD diameter. LFT's slowly trending down. -cont to trend Full code Dispo - cont inpt, ICU care Pt remains critically ill. A total of 45 minutes was spent at bedside and discussing case with specialty care and family. Subjective: Pt reports increased neck swelling and pain. No fevers overnight. Had rapid HR to 160's, SVT, improved with IV dilt. Agitation, required precedex. No CP, still a bit SOB. Objective: Vital Signs Temp Pulse Resp BP Pulse Ox 36.9 C 94 17 133/96 H 98 12/12/16 12:00 12/12/16 12:00 12/12/16 12:00 12/12/16 12:00 12/12/16 12:00 Microbiology 12/11/16 10:30 - Final Sputum, Expectorated 12/10/16 21:06 Blood Panel (PCR) - Final Blood S.aureus Methicillin Suscept. Laboratory Results 12/12/16 03:10 12/12/16 03:10 12/11/16 12/12/16 12/13/16 05:59 05:59 05:59 Intake Total 7060 4457 Output Total 330 1275 Balance 6730 3182 PT 18.5 SEC (12.0-15.0) H D 12/12/16 03:10 INR 1.54 (0.83-1.16) H 12/12/16 03:10 - Physical Exam Constitutional: uncomfortable Eyes: PERRL Ears, Nose, Mouth, Throat: moist mucous membranes, other (+increased neck swelling) Cardiovascular: regular rate and rhythym Respiratory: no respiratory distress, reduced air movement, inspiratory crackles Gastrointestinal: normoactive bowel sounds, soft, non-tender abdomen Skin: warm Musculoskeletal: full muscle strength Neurologic: AAOx3 Psychiatric: interacting appropriately ICD10 Worksheet Patient Problems: Problems Problem Status Onset Intracranial hemorrhage Acute Laceration of head Acute Lip laceration Acute Renal insufficiency Acute C. difficile diarrhea Acute 10/30/14
[2016-12-12] MEDS: 1/2 NS 1,000 ML IV SCH (15:40)
[2016-12-12] MEDS: LORazepam 2 MG/ML INJ IV PRN (15:43)
[2016-12-12] MEDS ORDERED: WARFARIN SODIUM 4 MG TAB PO SCH (16:00)
[2016-12-12] MEDS: DILTIAZEM 125 MG in D5W 125 ML IV SCH (16:51)
[2016-12-12] MEDS ORDERED: ACETAMINOPHEN 650 MG SUPP PR PRN (18:25)
[2016-12-12 20:09] LABS: BASE EXCESS -6.2 mEq/L (-2.5-2.5); BICARBONATE 16 mEq/L (22-26); MEASURED OXYGEN SATURATION 90 % (92-95); PCO2 24 mmHg (34-38); PO2 57 mmHg (65-75); TCO2 16 mEq/L (23-27)
[2016-12-12] MEDS: OLANZapine 5 MG TAB PO SCH (20:38)
[2016-12-12] MEDS: TESTOSTERONE TP SCH ×2 (20:54)
[2016-12-13] MEDS: HYDROmorphONE/DILAUDID 1 MG/ML INJ IVP PRN ×4 (00:36→22:49)
[2016-12-13] MEDS: LORazepam 2 MG/ML INJ IV PRN ×2 (01:33→07:58)
[2016-12-13] MEDS: DILTIAZEM 125 MG in D5W 125 ML IV SCH (04:26)
[2016-12-13 04:29] LABS: % IMMATURE GRANULYOCYTES 0.5 % (0.0-1.1); ABSOLUTE IMMATURE GRANULOCYTES 0.04 10^3/uL (0.00-0.10); ADD DIFF? NO; ADD MORPH? NO; ADD SCAN? YES; ATYPICAL LYMPHOCYTE FLAG 0 (0-99); FRAGMENT RBC FLAG 0 (0-99); HEMOGLOBIN 11.1 g/dL (13.7-17.5); LIPEMIA HEMOLYSIS FLAG 90 (0-99); MEAN CELL HEMOGLOBIN 33.3 pg (27.9-34.1); MEAN CELL HEMOGLOBIN CONCENTR. 34.7 g/dL (32.4-36.7); MEAN CELL VOLUME 96.1 fL (81.5-99.8); MEAN PLATELET VOLUME 10.4 fL (8.7-11.7); PLATELET CLUMPS FLAG 20 (0-99); PLATELET COUNT 67 10^3/uL (150-400); RED BLOOD CELL COUNT 3.33 10^6/uL (4.40-6.38); RED CELL DISTRIBUTION WIDTH 13.8 % (11.5-15.2)
[2016-12-13 04:31] LABS: LEFT SHIFT FLG 240 (0-99)
[2016-12-13 04:40] LABS: INR 1.4 (0.83-1.16); PROTIME(PATIENT) 17.1 SEC (12.0-15.0)
[2016-12-13 04:49] LABS: ALANINE AMINOTRANSFERASE 33 IU/L (21-72); ALBUMIN 2.3 g/dL (3.5-5.0); ALKALINE PHOSPHATASE 66 IU/L (38-126); ANION GAP 10 mEq/L (8-16); ASPARTATE AMINOTRANSFERASE 54 IU/L (17-59); CALCIUM 7.8 mg/dL (8.5-10.4); CARBON DIOXIDE 18 mEq/l (22-31); CHLORIDE 111 mEq/L (97-110); CREATININE 1.1 mg/dL (0.7-1.3); GLOMERULAR FILTRATION RATE > 60; GLUCOSE 118 mg/dL (70-100); POTASSIUM 3.2 mEq/L (3.5-5.2); SODIUM 139 mEq/L (134-144); TOTAL PROTEIN 4.7 g/dL (6.3-8.2)
[2016-12-13 04:56] LABS: SCAN NEGATIVE
[2016-12-13 05:15] LABS: BILIRUBIN-CONJUGATED 2.1 mg/dL (0.0-0.5); BILIRUBIN-UNCONJUGATED 0.9 mg/dL (0.0-1.1)
[2016-12-13] MEDS ORDERED: POTASSIUM CL 20 MEQ TAB PO ONE (05:15)
[2016-12-13] MEDS: ceFAZolin 2 GM/DEXTROSE 100 ML IV SCH ×3 (05:23→22:48)
[2016-12-13] MEDS: 1/2 NS 1,000 ML IV SCH (05:43)
--- NOTE | 2016-12-13 06:11 | GCON ---
[f rep st] CONSULTATION ENT CONSULTATION. DATE OF CONSULTATION: 12/12/2016 CHIEF COMPLAINT: Neck swelling, difficulty breathing, concern for retropharyngeal process. HISTORY OF PRESENT ILLNESS: This is a 66-year-old male with multiple medical problems who suffered a fall and was admitted on December 10. In the intervening time, he has been found to be positive for MSSA bacteremia. Apparently prior to his fall, he had some increased work of breathing and there h as been concerns given CT and MRI findings that he may have a retropharyngeal process, seeding this infection. As well, he has had increased swelling of both his neck soft tissues with skin changes c oncerning for cellulitis. I was called in consult for these matters. Consultation was carried out by Neurosurgery and there was concern noted for a retropharyngeal abscess. This was not a noted fin ding on radiology reads. The patient states that his work of breathing has been persistent througho ut his stay and he and his daughter who was present at the exam, noted that he was somewhat wheezy e arlier today, but this is largely cleared up. He has does still feel short of breath. The patient denies dysphagia, odynophagia, nasal obstruction, facial pain/pressure, purulent nasal d rainage, postnasal drip, trismus, oral or dental pain, soft tissue neck pain. REVIEW OF SYSTEMS: HEENT: Negative except for that what is mentioned above. PAST MEDICAL HISTORY: 1. Pulmonary embolism, on warfarin. 2. Hepatitis C. 3. HIV. 4. Chronic anemia. 5. Hepatitis B. SOCIAL HISTORY: , nonsmoker, minimal alcohol. ALLERGIES: No known drug allergies. MEDICATIONS: Home medications reviewed. Hospital medications were reviewed. FAMILY HISTORY: Unremarkable. PHYSICAL EXAM: VITAL SIGNS: Blood pressure 123/78, heart rate 88, respiratory rate 18, O2 saturati on 94% on room air CPAP. Temperature 38.2. GENERAL: Alert, interactive, mild distress. HEAD AND FACE: Normocephalic, atraumatic. General asymmetric features. No cutaneous erythema of the head o r face. Intact 3 cm laceration on right scalp. EYES: EOMI. EARS: Significant right pinna ecchym oses. No swelling. Canal with mild dried blood at the inferior aspect. Tympanic membrane intact w ith no evidence of effusion or hemotympanum. Left pinna and canal unremarkable. Minimal cerumen. Tympanic membrane intact without evidence of effusion or hemotympanum. Mild right postauricular ecc hymoses. NOSE: External appearance unremarkable. No palpable step-offs. Anterior rhinoscopy defer red for endoscopy. ORAL CAVITY: Dry mucosal membranes. Age-appropriate dentition with multiple cr owns and caps. Gingiva is nonerythematous and nonedematous throughout. Floor of mouth is soft and unremarkable. Posterior pharynx is dry with mild dry mucous. Tonsillar fossa unremarkable. NECK: Supple, yet somewhat full. Mild lower neck erythema appears to be extending up from the chest. NE URO: Cranial nerves 2 through 12 are grossly intact. PROCEDURE: Verbal informed consent was obtained for flexible nasopharyngolaryngoscopy. Laryngoscop y performed secondary to increased work of breathing and concern for retropharyngeal process. The r isks, benefits and alternatives to the procedure were described at length to the patient and his mayte ghter and who were present. They agreed to the procedure. Afrin with lidocaine nasal spray wa s placed in bilateral nasal cavities. Flexible nasopharyngeal laryngoscope was placed 1st in the ri ght and then the left nasal cavities. Nasal cavities were inspected throughout with no evidence of polyps, purulence or bleeding. Turbinate anatomy was unremarkable. Bilateral middle meatuses were clear. The scope was passed through the nasopharynx. At the right, nasopharynx was unremarkable. Scope was passed down through the nasopharyngeal inlet into the posterior pharynx and hypopharynx. A thorough inspection was made of the posterior pharyngeal and hypopharyngeal regions including and further inferiorly to include the larynx. Structures visualized included epiglottis, base of tongue , vallecular, bilateral piriform sinuses, aryepiglottic folds, vocal cords, superior postcricoid reg ion and posterior pharyngeal wall. No evidence of mass, ulceration, erythema, edema, or airway obst ruction. Bilateral vocal folds medialized and lateralized appropriately. The scope was withdrawn. The patient tolerated the procedure well. Radiology reads of the MRI and CT scan were reviewed by myself. As well, I reviewed the images myse . Further I discussed the radiology and review the images with on-call radiologist this evening. I agree with radiology interpretation. No evidence of retropharyngeal collection, however, there w as thought to be a prevertebral soft tissue fullness versus cellulitis versus edema at the anterior prevertebral tissues in the lower cervical region. ENT related anatomy otherwise unremarkable. ASSESSMENT AND PLAN: A 66-year-old male with multiple medical problems with prevertebral edema vers us cellulitis, increased work of breathing, and neck swelling. Unfortunately, radiology reviewed th e prevertebral fullness, does not appear to be a fluid collection and is likely not drainable and wo uld not be amenable to transoral approach. As this tissue appears to be in the prevertebral space a nd does not appear to be a drainable collection, I would not recommend anterior or lateral neck acce ss to this from the point review that it does not appear to be a drainable collection. Would defer to neurosurgery for the need for further approach to this and would be happy to assist in accessing this region should they deem it necessary. His increased work of breathing does not appear to be th e result of upper airway obstruction, as both oropharyngeal and nasopharyngeal airways are widely pa tent down through the larynx. No evidence of vocal cord dysfunction. 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 His daughter does not seem to think so. I suspect that the thickened tissue may be more related to a cellulitic or inflammatory process that appears to be extending from his ch est up onto his inferior neck. In short, I see no current need for ENT surgical intervention at thi s time. I am happy to return to follow the patient should his situation change and ENT consultation is again warranted. I discussed my findings at length with the patient, his daughter, and his . Please call me at my cell phone should he have any further questions or concerns. I am available at [phone]. /[id number]/MODL
[2016-12-13] MEDS: LEVALBUTEROL 0.63 MG/3 ML DEYVIAL IH SCH ×5 (06:17→20:17)
[2016-12-13] MEDS ORDERED: METOPROLOL TARTRATE 5 MG/5 ML INJ ONE (06:27)
[2016-12-13] MEDS ORDERED: METOPROLOL TARTRATE 5 MG/5 ML INJ IVP ONE (06:30)
--- NOTE | 2016-12-13 07:18 | NEUSURGPN ---
Assessment/Plan: Assessment: 66 yo M s/p fall with frontal tSAH, neck pain. MRI C/T spine with epidural fluid collection-continued neuro intact Plan: -MRI C spine w/contrast reviewed by Dr Alcala, epidural phlegmon noted. Larger fluid collection noted retropharyngeal space. ENT saw and evaluated as well -Neuro intact on exam. On precedex for agitation -pt with continued good strength -will continue to follow -ID following on cefazolin, repeat blood cxs pending -Currently no plans for sx - nothing present to be drained. If prevertebral area requires drainage-ENT on board -Pt seen and d/w Dr Alcala -call NS with any questions -family updated Subjective: Awake and alert. NAD. Eating/drinking and voiding. No new complaints or concerns. Objective: NAD, AAO x 3 EOMI no droop CN 2-12 grossly intact AFVSS MAEx4 Follows all commands Motor 5/5 BUE/BLE Neuro Check Frequency: per routine Urinary Catheter in Place: No Catheter Insertion Date: 12/10/16 - Physician Discussed Patient with : [facility] Physical Exam - Vitals, I&O, Labs I and O 12/12/16 12/13/16 12/14/16 05:59 05:59 05:59 Intake Total 4457 2024.4 Output Total 1275 2400 Balance 3182 -375.6 Intake: Oral (ml) 250 600 IV Infused (ml) 4207 1424.4 1/2 Ns 1,000 ml @ 75 mls/ 1186 hr IV CONT MARTIR Rx#: [id number] Dexmedetomidine HCl 400 32 mcg In Ns 100 ml @ Titrate IV CONT MARTIR Rx#: [id number] Diltiazem 125 mg In D5w 30 238.4 125 ml @ Per Protocol IV CONT MARTIR Rx#:[id number] NS W/ 20 KCl/L 1,000 ml @ 1651 100 mls/hr IV CONT MARTIR Rx#:[id number] Ns 1,000 ml @ 75 mls/hr 2494 IV CONT MARTIR Rx#: [id number] Output: Urine (ml) 1275 1950 Catheter 1275 1950 Thoracentesis 450 Other: Intake Quantity Yes Sufficient Number of Stools Bedside Commode 1 Catheter 1 Microbiology 12/12/16 12:40 Gram Stain - Final Pleural Fluid - Aspirate 12/11/16 10:30 - Final Sputum, Expectorated 12/10/16 21:06 Blood Panel (PCR) - Final Blood S.aureus Methicillin Suscept. Vital Signs Temp Pulse Resp BP Pulse Ox 38 C 108 H 20 114/70 93 12/13/16 07:00 12/13/16 07:00 12/13/16 07:00 12/13/16 07:00 12/13/16 07:00 Laboratory Results 12/13/16 04:20 12/13/16 04:20 ICD10 Worksheet Patient Problems: Problems Problem Status Onset Intracranial hemorrhage Acute Laceration of head Acute Lip laceration Acute Renal insufficiency Acute C. difficile diarrhea Acute 10/30/14
[2016-12-13] MEDS: DULoxetine 30 MG CAP PO SCH ×2 (07:58→20:23)
[2016-12-13] MEDS: RALTEGRAVIR 400 MG TAB PO SCH ×2 (07:58→20:23)
[2016-12-13] MEDS: DARUNAVIR ETHANOLATE 800 MG TAB PO SCH (07:58)
[2016-12-13] MEDS: SENNOSIDES/DOCUSATE SODIUM TAB PO SCH ×2 (07:58→19:54)
[2016-12-13] MEDS: RITONAVIR 100 MG TAB PO SCH (07:58)
[2016-12-13] MEDS: Teriparatide [Forteo] 2.4 ML SQ SCH (07:59)
--- NOTE | 2016-12-13 08:57 | PDINTPN ---
Fertilizer Mixer Progress Note Assessment/Plan: Assessment/Plan: * Sepsis-epidural or retropharyngeal fluid collection likely source. -continue broad-spectrum antibiotics * Epidural phlegmon-possible abscess. Neuro surgery does not feel surgery is warranted at this time * Retro pharyngeal fluid collection- Appreciate ENT help. Nothing drainable at this point * HIV positive * History of hepatitis C * SVT-episode last evening. Back on Cardizem * Confusion/encephalopathy * Pleural effusion-transudative in nature * Cardiac arrhythmia-SVT. Improved on Cardizem drip and IV fluids * History of PE * Respiratory-stable on minimal supplemental oxygen but looks uncomfortable -will check ABG Subjective: Up in chair. Awake and alert, however somewhat confused this morning Objective: Vital Signs Temp Pulse Resp BP Pulse Ox 37.9 C 88 28 H 132/75 H 98 12/13/16 07:37 12/13/16 08:26 12/13/16 08:26 12/13/16 08:26 12/13/16 08:26 Microbiology 12/12/16 12:40 Gram Stain - Final Pleural Fluid - Aspirate 12/11/16 10:30 - Final Sputum, Expectorated 12/10/16 21:06 Blood Panel (PCR) - Final Blood S.aureus Methicillin Suscept. Laboratory Results 12/13/16 04:20 12/13/16 04:20 12/12/16 12/13/16 12/14/16 05:59 05:59 05:59 Intake Total 4457 2024.4 Output Total 1275 2400 Balance 3182 -375.6 PT 17.1 SEC (12.0-15.0) H 12/13/16 04:20 INR 1.40 (0.83-1.16) H 12/13/16 04:20 Laboratory Results 12/13/16 04:20 12/13/16 04:20 12/13/16 12/12/16 04:20 12:40 Calcium 7.8 mg/dL L mg/dL (8.5 - 10.4) Total Bilirubin 3.0 mg/dL H mg/dL (0.1 - 1.4) Conjugated Bilirubin 2.1 mg/dL H mg/dL (0.0 - 0.5) Unconjugated Bilirubin 0.9 mg/dL mg/dL (0.0 - 1.1) AST 54 IU/L IU/L (17 - 59) ALT 33 IU/L IU/L (21 - 72) Alkaline Phosphatase 66 IU/L IU/L (38 - 126) Total Protein 4.7 g/dL L g/dL (6.3 - 8.2) Albumin 2.3 g/dL L g/dL (3.5 - 5.0) Fluid Meso/Macro/Gove % 3 % % Fl Pathologist Review Penny VILLAR MD Pleural Fluid Source PLEURAL Pleural Color YELLOW Pleural Appearance CLOUDY H Pleural pH 7.3 (6.8 - 7.6) Pleural WBC 87888 /mm3 /mm3 Pleural RBC 1219 /MM3 /MM3 Pleural Neutrophils 97 % % Pleural Total Protein < 2.0 g/dL g/dL Pleural LDH 801 IU/L IU/L Pleural Glucose 93 mg/dL mg/dL (55 - 113) 12/11/16 10:30 - Final Sputum, Expectorated Sputum Culture - Preliminary Nina Albicans Presumptive 12/10/16 21:30 Blood Culture - Preliminary Blood Staphylococcus Aureus 12/10/16 21:06 Blood Culture - Preliminary Blood Blood Panel (PCR) - Final Staphylococcus Aureus S.aureus Methicillin Suscept. Physical Exam - Physical Exam General Appearance: alert, other (Confused) EENT: PERRL/EOMI, normal ENT inspection Neck: non-tender, full range of motion, supple, normal inspection Respiratory: crackles (Bibasilar crackles), No respiratory distress, No stridor , No wheezing Cardiac/Chest: normal peripheral pulses, regular rate, rhythm Abdomen: normal bowel sounds, non-tender, soft Male Genitalia: deferred Rectal: deferred Skin: normal color, warm/dry Extremities: normal range of motion, non-tender, normal inspection, normal capillary refill Neuro/Psych: cognition abnormalities ICD10 Worksheet Patient Problems: Problems Problem Status Onset Intracranial hemorrhage Acute Laceration of head Acute Lip laceration Acute Renal insufficiency Acute C. difficile diarrhea Acute 10/30/14
[2016-12-13] MEDS: ENTECAVIR 1 MG PO SCH (11:27)
[2016-12-13 11:46] LABS: POTASSIUM 3.5 mEq/L (3.5-5.2)
[2016-12-13] MEDS: DILTIAZEM 30 MG TAB PO SCH ×3 (13:33→23:41)
--- NOTE | 2016-12-13 13:52 | PCMIDPN ---
Assessment/Plan: Assessment/Plan: * Sepsis due to MSSA bacteremia associated with cervical epidural/ retropharyngeal phlegmon: Repeat blood cultures are no growth to date. Overall clinically improved. Continue cefazolin. Likely will require repeat imaging of cervical region over time to ensure does not evolve into drainable/ organized focus. * HIV: Continue anti-retroviral therapy. * Pleural effusion status post thoracentesis: Gram stain negative with no growth on culture today. Exudative by Light's criteria with pleural:serum LDH ratio greater than 1. Doubt this will be related to MSSA infection but culture will be needed to fully define. Did have some atypical mesothelial cells noted by pathology on cell count; await cytology follow-up to ensure these do not represent malignancy. 12/13/16 13:48 12/13/16 13:52 12/13/16 13:55 Subjective: Patient without a anterior neck pain but feels like there is a "catch" present when he turns his head to the side. Objective: Vital Signs Temp Pulse Resp BP Pulse Ox 37.9 C 81 23 H 126/67 H 97 12/13/16 11:37 12/13/16 13:33 12/13/16 13:00 12/13/16 13:33 12/13/16 13:00 Microbiology 12/12/16 12:40 Gram Stain - Final Pleural Fluid - Aspirate 12/11/16 10:30 - Final Sputum, Expectorated 12/10/16 21:30 Blood Culture - Final Blood Staphylococcus Aureus 12/10/16 21:06 Blood Culture - Final Blood Staphylococcus Aureus Blood Panel (PCR) - Final S.aureus Methicillin Suscept. Laboratory Results 12/13/16 04:20 12/13/16 11:26 12/12/16 12/13/16 12/14/16 05:59 05:59 05:59 Intake Total 4457 2024.4 Output Total 1275 2400 Balance 3182 -375.6 Cefazolin # 2 Blood cultures 12/12/2016 no growth to date Pleural fluid cultures no growth to date Echocardiogram with mild to moderate TR Laboratory Tests 12/12/16 12:40 Pleural pH 7.3 Pleural WBC 61449 Pleural RBC 1219 Pleural Neutrophils 97 Pleural Total Protein < 2.0 Pleural LDH 801 Pleural Glucose 93 - Physical Exam General Appearance: alert, non-toxic EENT: No thrush, No conjunctival petechiae Respiratory: other (Increased respiratory effort with expiratory wheezes) Neck: other (Mildly tender over anterior neck and posterior cervical regions) Cardiac/Chest: regular rate, rhythm, No systolic murmur Extremities: No inflammation Abdomen: non-tender, No distended Skin: No embolic lesions ICD10 Worksheet Patient Problems: Problems Problem Status Onset Intracranial hemorrhage Acute Laceration of head Acute Lip laceration Acute Renal insufficiency Acute C. difficile diarrhea Acute 10/30/14
[2016-12-13] MEDS: POTASSIUM Cl (KCl) 40 MEQ in NS 1,000 ML IV SCH (16:30)
--- NOTE | 2016-12-13 18:21 | HOSPPROG ---
Hospitalist Progress Note Assessment/Plan: assessment: 66-year-old male presents with severe sepsis the setting of MSSA bacteremia and HIV Plan: # Severe sepsis. Autonomic dysregulation in setting of infxn, secondary to MSSA bacteremia, remains febrile and tachycardic w/ fluctuating mentation - cont IVF # MSSA bacteremia - suspected source is either epidural phlegmon/possible abscess C6-T1 (small, 1.2 x 0.4 cm) or prevertebral/retropharyngeal phlegmon - repeat BCx 12/12 now growing staph, likely not clearing effectively - d/w Dr. Santiago, if patient does not clear effectively, then this may require ENT /NSGY for drainage, or a repeat MRI to gauge whether collections are organizing in one location vs. the other - Cont Cefazolin - echo with no e/o vegetation, KEVYN may be considered # Acute hypoxemic respiratory failure - Requiring 3 LPM O2, 2/2 pleural effusions # Pleural effusions - present on CT chest, showed mod b/l pleural effusions, suspect sympathetic effusions as these are b/l and symmetric - s/p thoracentesis, exudate by LDH, transudate by protein - may benefit from diuresis when more stable # SAH - evaluated by neurosurgery and deemed stable, no neuro deficits, 2/2 traumatic fall # Acute Encephalopathy - evidenced by global brain dysfunction characterized as confusion, disorientation, poor concentration, agitation, 2/2 toxic effects of infxn and RONAN - continues to fluctuate, requiring close ongoing nursing care # SVT - acute, likely provoked by above, went into NSR tachy w/ dilt gtt, transitioned to PO 30mg q6 # HIV - chronic, recent viral load <1 copy. CD4 299 12/2015. No AIDS defining illness to date. Followed by Corie Santiago at [facility] - cont anti-retrovirals - no reason to believe infectious issues are related to HIV # RONAN on CKD stage III - 2/2 sev sepsis and resultant hypovolemia, FeNa is 0.04% , baseline Cr 1.2-1.4, cont IVF w/ K # Hyponatremia - acute, 2/2 hypoperfusion, corrected w/ IVF # H/O PE - INR reversed, for interventions, was an unprovoked PE, per Dr. Whitman today, who notes 25% recurrence rate, recommends resuming Coumadin when medically stable, no bridging needed. - daily INR # Hep B and Hep C - S/P Hep C tx. Elevated LFT's, bili may be elevated due to sepsis. RUQ shows nl CBD diameter. LFT's slowly trending down. - cont to trend Full code Dispo - cont inpt, remains critically ill 35 minutes critical care time spent at bedside, on team rounds, addressing issues outlined above. Subjective: Patient denies any pain Objective: Vital Signs Temp Pulse Resp BP Pulse Ox 37.0 C 94 26 H 138/75 H 100 12/13/16 18:00 12/13/16 18:00 12/13/16 18:00 12/13/16 18:00 12/13/16 18:00 Microbiology 12/11/16 10:30 - Final Sputum, Expectorated 12/12/16 12:40 Gram Stain - Final Pleural Fluid - Aspirate 12/10/16 21:30 Blood Culture - Final Blood Staphylococcus Aureus 12/10/16 21:06 Blood Culture - Final Blood Staphylococcus Aureus Blood Panel (PCR) - Final S.aureus Methicillin Suscept. Laboratory Results 12/13/16 04:20 12/13/16 11:26 12/12/16 12/13/16 12/14/16 05:59 05:59 05:59 Intake Total 4457 2024.4 1810.4 Output Total 1275 2400 880 Balance 3182 -375.6 930.4 PT 17.1 SEC (12.0-15.0) H 12/13/16 04:20 INR 1.40 (0.83-1.16) H 12/13/16 04:20 - Physical Exam Constitutional: no apparent distress, not in pain, chronically ill appearing, No uncomfortable Cardiovascular: systolic murmur ( 106 at the sternum and apex), tachycardia, No irregularly irregular, No edema Respiratory: reduced air movement ( bilateral bases), expiratory wheeze ( bilateral anterior chest), No inspiratory crackles, No bronchial breath sounds Gastrointestinal: normoactive bowel sounds, soft, non-tender abdomen, no palpable masses Skin: other ( minimal soft tissue edema around the anterior aspect of the lower neck, no tenderness to palpation) Musculoskeletal: other ( impaired range of motion of the neck, but pain is less per patient with rotation) Neurologic: sensation intact bilaterally, other ( alert awake oriented x2 to person and place, not to time), No weakness ( 5/5 motor strength bilateral lower and upper extremity), No facial droop Psychiatric: not anxious, encephalopathic ( concentration 5/7), flat affect, poor memory, No agitated ICD10 Worksheet Patient Problems: Problems Problem Status Onset C. difficile diarrhea Acute 10/30/14 Laceration of head Acute Lip laceration Acute Renal insufficiency Acute Intracranial hemorrhage Acute
[2016-12-13] MEDS: ACETAMINOPHEN 325 MG TAB PO PRN (19:51)
[2016-12-13] MEDS: OLANZapine 5 MG TAB PO SCH (20:23)
[2016-12-13] MEDS: TESTOSTERONE TP SCH (20:24)
[2016-12-14] MEDS: HYDROmorphONE/DILAUDID 1 MG/ML INJ IVP PRN ×4 (03:35→20:09)
[2016-12-14] MEDS: POTASSIUM Cl (KCl) 40 MEQ in NS 1,000 ML IV SCH (03:46)
[2016-12-14 04:37] LABS: ADD MORPH? NO; ADD SCAN? YES; FRAGMENT RBC FLAG 0 (0-99); HEMATOCRIT 30.8 % (40.0-51.0); HEMOGLOBIN 10.8 g/dL (13.7-17.5); LIPEMIA HEMOLYSIS FLAG 90 (0-99); MEAN CELL HEMOGLOBIN 33.2 pg (27.9-34.1); MEAN CELL HEMOGLOBIN CONCENTR. 35.1 g/dL (32.4-36.7); MEAN CELL VOLUME 94.8 fL (81.5-99.8); MEAN PLATELET VOLUME 10.7 fL (8.7-11.7); PLATELET CLUMPS FLAG 0 (0-99); PLATELET COUNT 79 10^3/uL (150-400); RED BLOOD CELL COUNT 3.25 10^6/uL (4.40-6.38); RED CELL DISTRIBUTION WIDTH 13.9 % (11.5-15.2)
[2016-12-14 04:40] LABS: ATYPICAL LYMPHOCYTE FLAG 220 (0-99); LEFT SHIFT FLG 190 (0-99)
[2016-12-14] MEDS: LEVALBUTEROL 0.63 MG/3 ML DEYVIAL IH SCH ×4 (04:57→20:45)
[2016-12-14 05:00] LABS: ALANINE AMINOTRANSFERASE 27 IU/L (21-72); ALBUMIN 2.1 g/dL (3.5-5.0); ALKALINE PHOSPHATASE 68 IU/L (38-126); ANION GAP 8 mEq/L (8-16); ASPARTATE AMINOTRANSFERASE 41 IU/L (17-59); BILIRUBIN,TOTAL 3.3 mg/dL (0.1-1.4); CALCIUM 7.8 mg/dL (8.5-10.4); CARBON DIOXIDE 19 mEq/l (22-31); CHLORIDE 108 mEq/L (97-110); CREATININE 1.1 mg/dL (0.7-1.3); GLOMERULAR FILTRATION RATE > 60; GLUCOSE 97 mg/dL (70-100); MAGNESIUM 2.3 mg/dL (1.6-2.3); POTASSIUM 3.5 mEq/L (3.5-5.2); SODIUM 135 mEq/L (134-144); TOTAL PROTEIN 4.8 g/dL (6.3-8.2)
[2016-12-14 05:07] LABS: BILIRUBIN-CONJUGATED 2.1 mg/dL (0.0-0.5); BILIRUBIN-UNCONJUGATED 1.2 mg/dL (0.0-1.1)
[2016-12-14] MEDS: ceFAZolin 2 GM/DEXTROSE 100 ML IV SCH ×3 (05:47→21:49)
[2016-12-14] MEDS: DILTIAZEM 30 MG TAB PO SCH ×3 (05:49→17:52)
[2016-12-14 06:16] LABS: ADD DIFF? YES; SCAN POSITIVE
[2016-12-14 06:25] LABS: PLATELET ESTIMATE DECREASED (ADEQ); TOXIC GRANULATION PRESENT; TOXIC VACUOLIZATION PRESENT
[2016-12-14] MEDS: DULoxetine 30 MG CAP PO SCH ×2 (07:27→20:08)
[2016-12-14] MEDS: DARUNAVIR ETHANOLATE 800 MG TAB PO SCH (07:27)
[2016-12-14] MEDS: RALTEGRAVIR 400 MG TAB PO SCH ×2 (07:27→22:15)
[2016-12-14] MEDS: RITONAVIR 100 MG TAB PO SCH ×2 (07:27→22:00)
[2016-12-14] MEDS: SENNOSIDES/DOCUSATE SODIUM TAB PO SCH ×2 (07:27→20:09)
--- NOTE | 2016-12-14 07:28 | NEUSURGPN ---
Assessment/Plan: Assessment: 66 yo M s/p fall with frontal tSAH, neck pain. MRI C/T spine with epidural fluid collection-continued neuro intact Plan: -MRI C spine w/contrast reviewed by Dr Alcala, epidural phlegmon noted. Larger fluid collection noted retropharyngeal space. ENT saw and evaluated as well -Neuro intact on exam. On precedex for agitation -pt with continued good strength -will continue to follow -ID following on cefazolin, repeat blood cxs-one positive for gram + cocci in clusters -Currently no plans for sx - nothing present to be drained. If prevertebral area requires drainage-ENT on board -Pt d/w Dr Alcala -call NS with any questions -family updated-daughter Subjective: Awake and alert. NAD. No lewis/neck/CP/sob/abd or gu complaints. Objective: NAD, AAO x 3 EOMI no droop CN 2-12 grossly intact AFVSS MAEx4 Follows all commands Motor 5/5 BUE/BLE Neuro Check Frequency: per routine Urinary Catheter in Place: No Catheter Insertion Date: 12/10/16 - Physician Discussed Patient with Dr.: Alcala Neurosurgery Physical Exam - Vitals, I&O, Labs I and O 12/13/16 12/14/16 12/15/16 05:59 05:59 05:59 Intake Total 2024.4 3294.4 Output Total 2400 1480 Balance -375.6 1814.4 Intake: Oral (ml) 600 1350 IV Intake (ml) 175 IV Infused (ml) 1424.4 1769.4 1/ Ns 1,000 ml @ 75 mls/ 1186 574 hr IV CONT MARTIR Rx#: [id number] Diltiazem 125 mg In D5w 238.4 61.4 125 ml @ Per Protocol IV CONT MARTIR Rx#:[id number] POTASSIUM Cl (KCl) 40 meq 1134 In Ns 1,000 ml @ 100 mls /hr IV CONT MARTIR Rx#: [id number] Output: Urine (ml) 1950 1480 Bedside Commode 450 Catheter 1950 680 Urinal 350 Thoracentesis 450 Other: Intake Quantity Yes Yes Sufficient Number of Stools Bedside Commode 1 1 Urinal 1 Microbiology 12/11/16 10:30 - Final Sputum, Expectorated 12/12/16 12:40 Gram Stain - Final Pleural Fluid - Aspirate 12/10/16 21:30 Blood Culture - Final Blood Staphylococcus Aureus 12/10/16 21:06 Blood Culture - Final Blood Staphylococcus Aureus Blood Panel (PCR) - Final S.aureus Methicillin Suscept. Vital Signs Temp Pulse Resp BP Pulse Ox 37.3 C 92 16 147/84 H 95 12/14/16 03:00 12/14/16 07:00 12/14/16 07:00 12/14/16 07:00 12/14/16 07:00 Laboratory Results 12/14/16 04:15 12/14/16 04:15 ICD10 Worksheet Patient Problems: Problems Problem Status Onset Intracranial hemorrhage Acute Laceration of head Acute Lip laceration Acute Renal insufficiency Acute C. difficile diarrhea Acute 10/30/14
[2016-12-14] MEDS: ACETAMINOPHEN 325 MG TAB PO PRN ×2 (07:30→16:44)
[2016-12-14] MEDS: Teriparatide [Forteo] 2.4 ML SQ SCH (07:31)
--- NOTE | 2016-12-14 08:30 | PDINTPN ---
Marketing Content Coordinator Progress Note Assessment/Plan: Assessment/Plan: * Sepsis-epidural or retropharyngeal phlegmon likely source. -continue broad-spectrum antibiotics * Epidural phlegmon- * Retro pharyngeal fluid collection- Appreciate ENT help. Nothing drainable at this point * HIV positive * History of hepatitis C * Confusion/encephalopathy * Pleural effusion-transudative in nature * Cardiac arrhythmia-SVT. Resolved * History of PE * Respiratory-stable on minimal supplemental oxygen but looks uncomfortable * Disposition-okay for transfer to floor Subjective: Up in chair. Still complaining of neck and shoulder pain. Objective: Vital Signs Temp Pulse Resp BP Pulse Ox 37.3 C 92 16 147/84 H 95 12/14/16 03:00 12/14/16 07:00 12/14/16 07:00 12/14/16 07:00 12/14/16 07:00 Microbiology 12/11/16 10:30 - Final Sputum, Expectorated 12/12/16 12:40 Gram Stain - Final Pleural Fluid - Aspirate 12/10/16 21:30 Blood Culture - Final Blood Staphylococcus Aureus 12/10/16 21:06 Blood Culture - Final Blood Staphylococcus Aureus Blood Panel (PCR) - Final S.aureus Methicillin Suscept. Laboratory Results 12/14/16 04:15 12/14/16 04:15 12/13/16 12/14/16 12/15/16 05:59 05:59 05:59 Intake Total 2024.4 3294.4 Output Total 2400 1480 Balance -375.6 1814.4 PT 17.1 SEC (12.0-15.0) H 12/13/16 04:20 INR 1.40 (0.83-1.16) H 12/13/16 04:20 Physical Exam - Physical Exam General Appearance: alert, mild distress EENT: PERRL/EOMI, normal ENT inspection, pharynx normal, TMs normal Neck: supple, other (Swelling-improved) Respiratory: chest non-tender, lungs clear, normal breath sounds Cardiac/Chest: normal peripheral pulses, regular rate, rhythm Abdomen: normal bowel sounds, non-tender, soft Male Genitalia: deferred Rectal: deferred Skin: normal color, warm/dry ICD10 Worksheet Patient Problems: Problems Problem Status Onset Intracranial hemorrhage Acute Laceration of head Acute Lip laceration Acute Renal insufficiency Acute C. difficile diarrhea Acute 10/30/14
[2016-12-14] MEDS: ENTECAVIR 1 MG PO SCH (10:10)
--- NOTE | 2016-12-14 14:33 | PCMIDPN ---
Assessment/Plan: Assessment: sepsis secondary to cervical prevertebral and epidural abscess/phlegmon. Patient's most recent blood cultures are growing MSSA so therefore we will repeat blood cultures again today. I am very concerned that we will not be able to control the bacteremia with cefazolin or any antibiotic alone without surgical source control. I agree there is no neurologic symptom at present to pressure urgent surgery. Patient is somewhat improved clinically from Sunday. Plan: 1. Continue IV cefazolin. 2. Repeat blood cultures today. 3. Follow clinical course. 12/14/16 18:36 Subjective: Patient is resting in his hospital bed. He states he still feels somewhat uncomfortable. He does admit to being significantly better from earlier this week. Tolerating cefazolin without issue. Objective: Cefazolin # 3 Vital Signs Temp Pulse Resp BP Pulse Ox 36.9 C 92 18 147/91 H 94 12/14/16 11:24 12/14/16 11:24 12/14/16 11:24 12/14/16 11:24 12/14/16 11:24 Microbiology 12/11/16 10:30 - Final Sputum, Expectorated 12/12/16 12:40 Gram Stain - Final Pleural Fluid - Aspirate 12/10/16 21:30 Blood Culture - Final Blood Staphylococcus Aureus 12/10/16 21:06 Blood Culture - Final Blood Staphylococcus Aureus Blood Panel (PCR) - Final S.aureus Methicillin Suscept. Laboratory Results 12/14/16 04:15 12/14/16 04:15 12/13/16 12/14/16 12/15/16 05:59 05:59 05:59 Intake Total 2024.4 3294.4 Output Total 2400 1480 150 Balance -375.6 1814.4 -150 - Physical Exam General Appearance: WD/WN, alert, toxic (Mildly) Respiratory: lungs clear, normal breath sounds, No respiratory distress Cardiac/Chest: regular rate, rhythm, No tachycardia Skin: normal color, warm/dry, No rash Neuro/Psych: alert, normal mood/affect, oriented x 3 ICD10 Worksheet Patient Problems: Problems Problem Status Onset Intracranial hemorrhage Acute Laceration of head Acute Lip laceration Acute Renal insufficiency Acute C. difficile diarrhea Acute 10/30/14
--- NOTE | 2016-12-14 16:45 | HOSPPROG ---
Hospitalist Progress Note Assessment/Plan: assessment: 66-year-old male presents with severe sepsis the setting of MSSA bacteremia and HIV Plan: # Severe sepsis. Autonomic dysregulation in setting of infxn, secondary to MSSA bacteremia, afeb since yesterday AM # MSSA bacteremia - suspected source is either epidural phlegmon/possible abscess C6-T1 (small, 1.2 x 0.4 cm) or prevertebral/retropharyngeal phlegmon - repeat BCx 12/12 now growing staph, likely not clearing effectively - may require repeat MRI C/T/L spine to eval for organizing collection - Cont Cefazolin - echo with no e/o vegetation, KEVYN may be considered # Acute hypoxemic respiratory failure - 2/2 combination of pleural effusions, possible pneumonia, and reactive airway disease, requiring 3 LPM O2, 2/2 pleural effusions # Acute reactive airway exacerbation - expiratory wheezes/bronchial breath sounds, likely provoked by either effusions or pneumonia - add atrovent to xopenex, add pred 40 # Pleural effusions - present on CT chest, showed mod b/l pleural effusions, suspect sympathetic effusions as these are b/l and symmetric - s/p thoracentesis, exudate by LDH, transudate by protein - start diuresis and gauge effect - get CXR for possible PNA - send sputum Cx # SAH - evaluated by neurosurgery and deemed stable, no neuro deficits, 2/2 traumatic fall # Acute Encephalopathy - evidenced by global brain dysfunction characterized as confusion, disorientation, poor concentration, agitation, 2/2 toxic effects of infxn and RONAN - continues to fluctuate, requiring close ongoing nursing care # SVT - acute, likely provoked by above, went into NSR tachy w/ dilt gtt, transitioned to PO 30mg q6 # HIV - chronic, recent viral load <1 copy. CD4 299 12/2015. No AIDS defining illness to date. Followed by Corie Santiago at [facility] - cont anti-retrovirals - no reason to believe infectious issues are related to HIV # RONAN on CKD stage III - 2/2 sev sepsis and resultant hypovolemia, FeNa is 0.04% , baseline Cr 1.2-1.4, cont IVF w/ K # Hyponatremia - acute, 2/2 hypoperfusion, corrected w/ IVF # H/O PE - INR reversed, for interventions, was an unprovoked PE, per Dr. Whitman today, who notes 25% recurrence rate, recommends resuming Coumadin when medically stable, no bridging needed. - daily INR # Hep B and Hep C - S/P Hep C tx. Elevated LFT's, bili may be elevated due to sepsis. RUQ shows nl CBD diameter. LFT's slowly trending down. - cont to trend Full code Dispo - ADD uncertain, eventually SNF, remains highly complex w/ high risk of worsening morbidity and mortality Subjective: worsening cough today Objective: Vital Signs Temp Pulse Resp BP Pulse Ox 37.2 C 108 H 16 169/111 H 96 12/14/16 15:06 12/14/16 15:06 12/14/16 15:06 12/14/16 15:06 12/14/16 15:06 Microbiology 12/11/16 10:30 - Final Sputum, Expectorated 12/12/16 12:40 Gram Stain - Final Pleural Fluid - Aspirate 12/10/16 21:30 Blood Culture - Final Blood Staphylococcus Aureus 12/10/16 21:06 Blood Culture - Final Blood Staphylococcus Aureus Blood Panel (PCR) - Final S.aureus Methicillin Suscept. Laboratory Results 12/14/16 04:15 12/14/16 04:15 12/13/16 12/14/16 12/15/16 05:59 05:59 05:59 Intake Total 2024.4 3294.4 Output Total 2400 1480 350 Balance -375.6 1814.4 -350 PT 17.1 SEC (12.0-15.0) H 12/13/16 04:20 INR 1.40 (0.83-1.16) H 12/13/16 04:20 - Physical Exam Constitutional: no apparent distress, chronically ill appearing, uncomfortable, No not in pain (in lower back) Cardiovascular: edema (trace ), No systolic murmur, No irregularly irregular, No tachycardia Respiratory: expiratory wheeze, bronchial breath sounds, rhonchi (on inspiration ), other (persistent coughing), No reduced air movement Gastrointestinal: normoactive bowel sounds, soft, non-tender abdomen, no palpable masses, No distension Musculoskeletal: other (tenderness over mid thoracic spine, no tenderness over lumbar spine) Neurologic: AAOx3, sensation intact bilaterally, No weakness (motor 5/5 bilat LE ), No facial droop Psychiatric: interacting appropriately, not anxious, not encephalopathic, thought process linear ICD10 Worksheet Patient Problems: Problems Problem Status Onset C. difficile diarrhea Acute 10/30/14 Laceration of head Acute Lip laceration Acute Renal insufficiency Acute Intracranial hemorrhage Acute
[2016-12-14] MEDS ORDERED: FUROSEMIDE 20 MG/2 ML VIAL IVP ONE (16:52)
[2016-12-14] MEDS: predniSONE 20 MG TAB PO SCH (17:52)
[2016-12-14] MEDS ORDERED: IPRATROPIUM BROMIDE 0.5 MG/2.5 ML DEYVIAL IH SCH (18:00)
[2016-12-14] MEDS: OLANZapine 5 MG TAB PO SCH (20:09)
[2016-12-14] MEDS: IPRATROPIUM BROMIDE 0.5 MG/2.5 ML DEYVIAL IH SCH (20:48)
[2016-12-14] MEDS: TESTOSTERONE TP SCH (22:15)
[2016-12-15] MEDS: DILTIAZEM 30 MG TAB PO SCH ×3 (01:06→11:18)
[2016-12-15] MEDS: ceFAZolin 2 GM/DEXTROSE 100 ML IV SCH ×3 (05:14→21:38)
[2016-12-15] MEDS: HYDROmorphONE/DILAUDID 1 MG/ML INJ IVP PRN ×2 (05:22→21:49)
[2016-12-15 05:30] LABS: % IMMATURE GRANULYOCYTES 1.7 % (0.0-1.1); ABSOLUTE IMMATURE GRANULOCYTES 0.15 10^3/uL (0.00-0.10); ADD DIFF? NO; ADD MORPH? NO; ADD SCAN? YES; FRAGMENT RBC FLAG 0 (0-99); HEMATOCRIT 30.8 % (40.0-51.0); HEMOGLOBIN 10.8 g/dL (13.7-17.5); LEFT SHIFT FLG 90 (0-99); LIPEMIA HEMOLYSIS FLAG 90 (0-99); MEAN CELL HEMOGLOBIN 33.1 pg (27.9-34.1); MEAN CELL HEMOGLOBIN CONCENTR. 35.1 g/dL (32.4-36.7); MEAN CELL VOLUME 94.5 fL (81.5-99.8); MEAN PLATELET VOLUME 10.7 fL (8.7-11.7); PLATELET CLUMPS FLAG 0 (0-99); PLATELET COUNT 110 10^3/uL (150-400); RED BLOOD CELL COUNT 3.26 10^6/uL (4.40-6.38); RED CELL DISTRIBUTION WIDTH 14.1 % (11.5-15.2)
[2016-12-15 05:35] LABS: ATYPICAL LYMPHOCYTE FLAG 180 (0-99)
[2016-12-15 05:48] LABS: ALANINE AMINOTRANSFERASE 29 IU/L (21-72); ALBUMIN 2.1 g/dL (3.5-5.0); ALKALINE PHOSPHATASE 88 IU/L (38-126); ANION GAP 7 mEq/L (8-16); ASPARTATE AMINOTRANSFERASE 38 IU/L (17-59); BILIRUBIN,TOTAL 2.2 mg/dL (0.1-1.4); CALCIUM 7.7 mg/dL (8.5-10.4); CARBON DIOXIDE 22 mEq/l (22-31); CHLORIDE 106 mEq/L (97-110); CREATININE 1.1 mg/dL (0.7-1.3); GLOMERULAR FILTRATION RATE > 60; GLUCOSE 111 mg/dL (70-100); MAGNESIUM 2.3 mg/dL (1.6-2.3); POTASSIUM 3.7 mEq/L (3.5-5.2); SODIUM 135 mEq/L (134-144); TOTAL PROTEIN 5.2 g/dL (6.3-8.2)
[2016-12-15 05:55] LABS: BILIRUBIN-CONJUGATED 1.1 mg/dL (0.0-0.5); BILIRUBIN-UNCONJUGATED 1.1 mg/dL (0.0-1.1)
[2016-12-15] MEDS: IPRATROPIUM BROMIDE 0.5 MG/2.5 ML DEYVIAL IH SCH ×4 (05:55→20:58)
[2016-12-15] MEDS: LEVALBUTEROL 0.63 MG/3 ML DEYVIAL IH SCH ×4 (05:55→21:00)
[2016-12-15 06:00] LABS: SCAN POSITIVE
[2016-12-15 06:05] LABS: PLATELET ESTIMATE DECREASED (ADEQ); TOXIC GRANULATION PRESENT
[2016-12-15] MEDS: DULoxetine 30 MG CAP PO SCH ×2 (08:05→21:49)
[2016-12-15] MEDS: predniSONE 20 MG TAB PO SCH (08:06)
[2016-12-15] MEDS: FUROSEMIDE 20 MG/2 ML VIAL IVP SCH ×2 (08:07→13:56)
[2016-12-15] MEDS: SENNOSIDES/DOCUSATE SODIUM TAB PO SCH ×2 (08:08→21:41)
--- NOTE | 2016-12-15 08:22 | NEUSURGPN ---
Assessment/Plan: Assessment: 66 yo M s/p fall with frontal tSAH, neck pain. MRI C/T spine with epidural fluid collection-continued neuro intact Plan: -MRI C spine w/contrast reviewed by Dr Alcala, epidural phlegmon noted. Larger fluid collection noted retropharyngeal space. ENT saw and evaluated as well - No surgical intervention indicated at this time. Continue IV abx per ID - Recommend repeat MRI C-spine with and without contrast in 1 month - Discussed with Dr. Alcala. Will sign off over the weekend and re-evaluate the patient on Sunday. Please call us with any questions/concerns Subjective: Feeling improved this morning. Was able to stand more straight. No UE/LE pain, numbness, tingling, weakness Objective: Awake. Alert. PERRL. EOMI Facial expression symmetrical Muscle strength full at 5/5 Sensation intact Catheter Insertion Date: 12/10/16 - Physician Discussed Patient with Dr.: Alcala Neurosurgery Physical Exam - Vitals, I&O, Labs I and O 12/14/16 12/15/16 12/16/16 05:59 05:59 05:59 Intake Total 3294.4 500 Output Total 1480 1875 Balance 1814.4 -1375 Intake: Oral (ml) 1350 IV Intake (ml) 175 IV Infused (ml) 1769.4 500 1/2 Ns 1,000 ml @ 75 mls/ 574 hr IV CONT MARTIR Rx#: [id number] Diltiazem 125 mg In D5w 61.4 125 ml @ Per Protocol IV CONT MARTIR Rx#:[id number] POTASSIUM Cl (KCl) 40 meq 1134 500 In Ns 1,000 ml @ 100 mls /hr IV CONT MARTIR Rx#: [id number] Output: Urine (ml) 1480 1875 Bedside Commode 450 Catheter 680 Urinal 350 1875 Other: Intake Quantity Yes Sufficient Number of Stools Bedside Commode 1 1 Urinal 1 Microbiology 12/11/16 10:30 - Final Sputum, Expectorated 12/12/16 12:40 Gram Stain - Final Pleural Fluid - Aspirate Vital Signs Temp Pulse Resp BP Pulse Ox 37.1 C 91 20 136/85 H 93 12/15/16 07:28 12/15/16 07:28 12/15/16 07:28 12/15/16 07:28 12/15/16 07:28 Laboratory Results 12/15/16 05:15 12/15/16 05:15 ICD10 Worksheet Patient Problems: Problems Problem Status Onset Intracranial hemorrhage Acute Laceration of head Acute Lip laceration Acute Renal insufficiency Acute C. difficile diarrhea Acute 10/30/14
[2016-12-15] MEDS: DARUNAVIR ETHANOLATE 800 MG TAB PO SCH (10:11)
[2016-12-15] MEDS: RALTEGRAVIR 400 MG TAB PO SCH ×2 (10:12→21:39)
[2016-12-15] MEDS: ENTECAVIR 1 MG PO SCH (10:12)
[2016-12-15] MEDS: Teriparatide [Forteo] 2.4 ML SQ SCH (10:14)
--- NOTE | 2016-12-15 10:29 | CPEKG ---
Heart Rate: 100 RR Interval: 600 P-R Interval: 188 QRSD Interval: 152 QT Interval: 357 QTC Interval: 461 P Wideman: 51 QRS Wideman: 80 T Wave Wideman: -20 EKG Severity - ABNORMAL ECG - EKG Impression: SINUS TACHYCARDIA EKG Impression: RIGHT BUNDLE BRANCH BLOCK Electronically Signed By: Calvin Ferrell 15-Dec-2016 12:55:34
[2016-12-15] MEDS ORDERED: POTASSIUM CL 20 MEQ TAB PO ONE (10:41)
--- NOTE | 2016-12-15 11:48 | PCMIDPN ---
Assessment/Plan: Assessment/Plan: * Sepsis due to MSSA bacteremia associated with cervical epidural/ retropharyngeal phlegmon: Repeat blood cultures 12/12/2016 with 1/2 sets MSSA. Repeat cultures obtained on 12/14/2016 to assess for clearing. Overall clinically improved. Continue cefazolin. If repeat blood cultures are positive , will proceed with repeat imaging to assess for more organized focus as reason for persistent bacteremia. If negative, likely will repeat MRI approximately 1 week. * HIV: Continue anti-retroviral therapy. * Hepatitis-B: Continue entecavir. * Pleural effusion status post thoracentesis: Pleural fluid culture remains negative. Cytology negative for malignant cells. * Left upper extremity edema: Will obtain x-ray of hand given persistent edema and fall. 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 12/15/16 11:45 12/15/16 11:46 12/15/16 11:50 Subjective: Patient complains of neck pain with moving head to the right. Objective: Vital Signs Temp Pulse Resp BP Pulse Ox 37.0 C 107 H 20 115/84 H 92 12/15/16 11:34 12/15/16 11:34 12/15/16 11:34 12/15/16 11:34 12/15/16 11:34 Microbiology 12/11/16 10:30 - Final Sputum, Expectorated 12/12/16 12:40 Gram Stain - Final Pleural Fluid - Aspirate Body Fluid Culture - Final Laboratory Results 12/15/16 05:15 12/15/16 05:15 12/14/16 12/15/16 12/16/16 05:59 05:59 05:59 Intake Total 3294.4 500 Output Total 1480 1875 Balance 1814.4 -1375 Cefazolin # 4 Blood cultures 12/12/2016 1/2 sets MSSA Blood cultures 12/14/2016 pending Pleural fluid culture negative - Physical Exam General Appearance: alert, no apparent distress, No non-toxic EENT: other (Ulceration/scab over lower lip which patient notes he sustained with fall), No conjunctival petechiae Respiratory: lungs clear, No respiratory distress Neck: other (No tenderness to palpation; significant tenderness when patient laterally rotates to right) Cardiac/Chest: tachycardia Extremities: other (Left upper extremity with edema of hand and arm) Abdomen: non-tender, No distended Skin: No embolic lesions ICD10 Worksheet Patient Problems: Problems Problem Status Onset Intracranial hemorrhage Acute Laceration of head Acute Lip laceration Acute Renal insufficiency Acute C. difficile diarrhea Acute 10/30/14
--- NOTE | 2016-12-15 17:21 | ASMTCMCOM ---
CM Note CM Note Notes: PT recommending SNF at this time. OT recommending Inpt. Rehab. Pt. still quite ill. Per RN, Pt is very close to his step daughter and step son. Step daughter Luz Elena is an RN at [employer]. Pt. to get picc soon. RN states Pt. amenable to d/cing to SNF or Inpatient Rehab. Pt. w/ [employer] insurance. Sent [employer] SNF referrals to [facility], and [facility]. CM to follow for d/c POC. Date Signed: 12/15/2016 05:21 PM Electronically Signed By:Arlene Ndiaye
--- NOTE | 2016-12-15 17:32 | HOSPPROG ---
Hospitalist Progress Note Assessment/Plan: assessment: 66-year-old male presents with severe sepsis the setting of MSSA bacteremia and HIV Plan: # Severe sepsis. Autonomic dysregulation in setting of infxn, secondary to MSSA bacteremia, afeb since yesterday PM # MSSA bacteremia - suspected source is either epidural phlegmon/possible abscess C6-T1 (small, 1.2 x 0.4 cm) or prevertebral/retropharyngeal phlegmon - repeat BCx 12/12 now growing staph, potentially not clearing effectively - may require repeat MRI C/T/L spine to eval for organizing collection, d/w Dr. Santiago, we agreed to monitor most recent BCx 12/14 and if growing, then will pursue imaging - Cont Cefazolin - echo with no e/o vegetation, KEVYN may be considered # Acute hypoxemic respiratory failure - 2/2 combination of pleural effusions and reactive airway disease, requiring 3 LPM O2, 2/2 pleural effusions # Acute reactive airway exacerbation - expiratory wheezes/bronchial breath sounds, likely provoked by either effusions or pneumonia - added atrovent to xopenex, added pred 40 w/ good effect # Pleural effusions - present on CT chest, showed mod b/l pleural effusions, suspect sympathetic effusions as these are b/l and symmetric - s/p thoracentesis, exudate by LDH, transudate by protein - started diuresis and gauge effect - CXR w/o specific pneumonia pattern (personally interpreted) - sent sputum Cx # SAH - evaluated by neurosurgery and deemed stable, no neuro deficits, 2/2 traumatic fall # Acute Encephalopathy - evidenced by global brain dysfunction characterized as confusion, disorientation, poor concentration, agitation, 2/2 toxic effects of infxn and RONAN - continues to fluctuate, requiring close ongoing nursing care # SVT - acute, likely provoked by above, went into NSR tachy w/ dilt gtt, transitioned to PO 120mg daily dilt # HIV - chronic, recent viral load <1 copy. CD4 299 12/2015. No AIDS defining illness to date. Followed by Corie Santiago at [facility] - cont anti-retrovirals - no reason to believe infectious issues are related to HIV # RONAN on CKD stage III - 2/2 sev sepsis and resultant hypovolemia, FeNa is 0.04% , baseline Cr 1.2-1.4 # Hyponatremia - acute, 2/2 hypoperfusion, corrected w/ IVF # H/O PE - INR reversed, for interventions, was an unprovoked PE, per Dr. Whitman today, who notes 25% recurrence rate, recommends resuming Coumadin when medically stable, no bridging needed. - cont to hold given SAH - will reassess arm and possibly get US # Hep B and Hep C - S/P Hep C tx. Elevated LFT's, bili may be elevated due to sepsis. RUQ shows nl CBD diameter. LFT's slowly trending down. - cont to trend Full code Dispo - ADD uncertain, eventually SNF, remains highly complex w/ high risk of worsening morbidity and mortality secondary to the issues outlined above Subjective: patient reports cough improving, ongoing neck discomfort, worse w/ motion Objective: Vital Signs Temp Pulse Resp BP Pulse Ox 37.0 C 100 24 H 136/87 H 95 12/15/16 11:34 12/15/16 16:28 12/15/16 16:28 12/15/16 16:28 12/15/16 16:28 Microbiology 12/11/16 10:30 - Final Sputum, Expectorated Sputum Culture - Final Nina Albicans 12/14/16 08:35 - Final Sputum, Expectorated Sputum Culture - Final 12/12/16 12:40 Gram Stain - Final Pleural Fluid - Aspirate Body Fluid Culture - Final Laboratory Results 12/15/16 05:15 12/15/16 05:15 12/14/16 12/15/16 12/16/16 05:59 05:59 05:59 Intake Total 3294.4 500 Output Total 1480 1875 1000 Balance 1814.4 -1375 -1000 PT 17.1 SEC (12.0-15.0) H 12/13/16 04:20 INR 1.40 (0.83-1.16) H 12/13/16 04:20 - Physical Exam Constitutional: no apparent distress, chronically ill appearing, uncomfortable, No not in pain Ears, Nose, Mouth, Throat: dry mucous membranes Cardiovascular: systolic murmur (I/ at sternum), other (ectopic beats noted), No irregularly irregular, No tachycardia, No edema Respiratory: expiratory wheeze (faint, less than day prior), inspiratory crackles (bilat bases), No bronchial breath sounds, No respiratory distress Gastrointestinal: normoactive bowel sounds, soft, non-tender abdomen, no palpable masses Neurologic: AAOx3, sensation intact bilaterally, No weakness Psychiatric: interacting appropriately, not anxious, not encephalopathic, thought process linear ICD10 Worksheet Patient Problems: Problems Problem Status Onset C. difficile diarrhea Acute 10/30/14 Laceration of head Acute Lip laceration Acute Renal insufficiency Acute Intracranial hemorrhage Acute
[2016-12-15] MEDS: DILTIAZEM CD 120 MG CAP PO SCH (21:39)
[2016-12-15] MEDS: OLANZapine 5 MG TAB PO SCH (21:40)
[2016-12-15] MEDS: guaiFENesin/CODEINE PHOS 10 ML UDCUP PO PRN (21:48)
[2016-12-15] MEDS: CEPACOL LOZENGE PO PRN (21:49)
[2016-12-15] MEDS: TESTOSTERONE TP SCH (22:43)
[2016-12-16] MEDS: HYDROmorphONE/DILAUDID 1 MG/ML INJ IVP PRN ×2 (04:01→08:16)
[2016-12-16] MEDS: ceFAZolin 2 GM/DEXTROSE 100 ML IV SCH ×3 (05:38→22:34)
[2016-12-16 05:58] LABS: % IMMATURE GRANULYOCYTES 1.2 % (0.0-1.1); ABSOLUTE IMMATURE GRANULOCYTES 0.13 10^3/uL (0.00-0.10); ADD DIFF? NO; ADD MORPH? NO; ADD SCAN? NO; ATYPICAL LYMPHOCYTE FLAG 80 (0-99); FRAGMENT RBC FLAG 0 (0-99); HEMOGLOBIN 11.3 g/dL (13.7-17.5); LEFT SHIFT FLG 30 (0-99); LIPEMIA HEMOLYSIS FLAG 90 (0-99); MEAN CELL HEMOGLOBIN 33.4 pg (27.9-34.1); MEAN CELL HEMOGLOBIN CONCENTR. 35.3 g/dL (32.4-36.7); MEAN CELL VOLUME 94.7 fL (81.5-99.8); MEAN PLATELET VOLUME 10.7 fL (8.7-11.7); PLATELET CLUMPS FLAG 0 (0-99); PLATELET COUNT 146 10^3/uL (150-400); RED BLOOD CELL COUNT 3.38 10^6/uL (4.40-6.38); RED CELL DISTRIBUTION WIDTH 14.1 % (11.5-15.2)
[2016-12-16] MEDS: IPRATROPIUM BROMIDE 0.5 MG/2.5 ML DEYVIAL IH SCH ×4 (06:14→22:29)
[2016-12-16] MEDS: LEVALBUTEROL 0.63 MG/3 ML DEYVIAL IH SCH ×4 (06:15→22:29)
[2016-12-16 06:20] LABS: ALANINE AMINOTRANSFERASE 34 IU/L (21-72); ALBUMIN 2.3 g/dL (3.5-5.0); ALKALINE PHOSPHATASE 94 IU/L (38-126); ANION GAP 8 mEq/L (8-16); ASPARTATE AMINOTRANSFERASE 50 IU/L (17-59); BILIRUBIN,TOTAL 1.3 mg/dL (0.1-1.4); CALCIUM 7.8 mg/dL (8.5-10.4); CARBON DIOXIDE 21 mEq/l (22-31); CHLORIDE 108 mEq/L (97-110); GLOMERULAR FILTRATION RATE > 60; GLUCOSE 89 mg/dL (70-100); MAGNESIUM 2.1 mg/dL (1.6-2.3); POTASSIUM 3.5 mEq/L (3.5-5.2); SODIUM 137 mEq/L (134-144); TOTAL PROTEIN 5.6 g/dL (6.3-8.2)
[2016-12-16] MEDS: LORazepam 2 MG/ML INJ IV PRN ×2 (07:20→22:50)
[2016-12-16] MEDS: RALTEGRAVIR 400 MG TAB PO SCH ×2 (08:00→22:37)
[2016-12-16] MEDS: predniSONE 20 MG TAB PO SCH (08:01)
[2016-12-16] MEDS: SENNOSIDES/DOCUSATE SODIUM TAB PO SCH ×2 (08:02→22:39)
[2016-12-16] MEDS: DULoxetine 30 MG CAP PO SCH ×2 (08:02→22:37)
[2016-12-16] MEDS: DARUNAVIR ETHANOLATE 800 MG TAB PO SCH (08:02)
[2016-12-16] MEDS: RITONAVIR 100 MG TAB PO SCH (08:02)
[2016-12-16] MEDS: FUROSEMIDE 20 MG/2 ML VIAL IVP SCH (08:03)
[2016-12-16] MEDS: Teriparatide [Forteo] 2.4 ML SQ SCH (08:06)
--- NOTE | 2016-12-16 09:42 | HOSPPROG ---
Hospitalist Progress Note Assessment/Plan: # severe sepsis - d/t MSSA bacteremia # MSSA bacteremia - source likely epidural fluid collections - BCx + 12/10, 12/12 - NGTD from 12/14 - cont ancef per ID # epidural fluid collections, C6-T3 - pain much worse today; no neuro deficits on my exam - repeat stat MRI # RONAN on CKD - resolved, pre-renal # indet troponin - likely demand # SVT, resolved though now he has significant ectopy - significant PACs and VPCs , no couplets though - follow on tele - dilt # acute encephalopathy - improved # acute hypoxic resp failure - d/t pleural effusions, RAD; better today; stop lasix for now # RAD exacerbation, better with xopenex and prednisone (taper soon) # pleural effusion s/p thora, fluid neg # SAH/SDH, traumatic - holding AC # hypoNa - resolved # hep B/hep C s/p treatment # hx PE s/p reversal of warfarin- LUE very edematous; doubt US will plant changer at this time - no AC given SAH # HIV - on meds Subjective: pain much worse overnight; no numbness or tingling in UE or LE Objective: Vital Signs Temp Pulse Resp BP Pulse Ox 37.1 C 103 H 16 142/98 H 93 12/16/16 08:00 12/16/16 08:00 12/16/16 08:00 12/16/16 08:00 12/16/16 04:00 Microbiology 12/11/16 10:30 - Final Sputum, Expectorated Sputum Culture - Final Nina Albicans 12/14/16 08:35 - Final Sputum, Expectorated Sputum Culture - Final 12/12/16 12:40 Gram Stain - Final Pleural Fluid - Aspirate Body Fluid Culture - Final Laboratory Results 12/16/16 05:42 12/16/16 05:42 12/15/16 12/16/16 12/17/16 05:59 05:59 05:59 Intake Total 500 300 Output Total 1875 2900 950 Balance -1375 -2600 -950 PT 17.1 SEC (12.0-15.0) H 12/13/16 04:20 INR 1.40 (0.83-1.16) H 12/13/16 04:20 chart reviewed hand XR reviewed MRIs reviewed - Physical Exam Constitutional: no apparent distress, appears nourished Cardiovascular: regular rate and rhythym, no murmur, rub, or gallop, systolic murmur Respiratory: no respiratory distress, no rales or rhonchi, clear to auscultation Gastrointestinal: normoactive bowel sounds, soft, non-tender abdomen, no palpable masses Musculoskeletal: other (UE strength and sensation intact) ICD10 Worksheet Patient Problems: Problems Problem Status Onset Intracranial hemorrhage Acute Laceration of head Acute Lip laceration Acute Renal insufficiency Acute C. difficile diarrhea Acute 10/30/14
[2016-12-16] MEDS ORDERED: POTASSIUM CL 20 MEQ TAB PO ONE (09:43)
[2016-12-16] MEDS: oxyCODONE IR 5 MG TAB PO PRN ×2 (09:53→17:11)
[2016-12-16] MEDS: ENTECAVIR 1 MG PO SCH (09:55)
--- NOTE | 2016-12-16 11:50 | PCMIDPN ---
Assessment/Plan: Assessment/Plan: * Sepsis due to MSSA bacteremia associated with cervical epidural/ retropharyngeal phlegmon: Worsening upper back pain overnight and persistent pain with lateral rotation of neck. Agree with repeating MRI of cervical spine and including thoracic spine. Repeat blood cultures from 12/14/2016 are no growth to date. Continue cefazolin. * HIV: Continue anti-retroviral therapy. * Hepatitis-B: Continue entecavir. * Pleural effusion status post thoracentesis: Pleural fluid culture remains negative. Cytology negative for malignant cells. * Left upper extremity edema: X-ray without evidence of fracture. Will obtain ultrasound of left upper extremity given persistent edema and that he remains off anticoagulation. 12/16/16 11:47 12/16/16 11:50 Subjective: Patient with severe upper thoracic back pain overnight. Improved currently but not fully resolved. Continues to have pain with lateral rotation of neck, right greater than left. Objective: Vital Signs Temp Pulse Resp BP Pulse Ox 37.1 C 103 H 16 142/98 H 93 12/16/16 08:00 12/16/16 08:00 12/16/16 08:00 12/16/16 08:00 12/16/16 04:00 Microbiology 12/11/16 10:30 - Final Sputum, Expectorated Sputum Culture - Final Nina Albicans 12/14/16 08:35 - Final Sputum, Expectorated Sputum Culture - Final 12/12/16 12:40 Gram Stain - Final Pleural Fluid - Aspirate Body Fluid Culture - Final Laboratory Results 12/16/16 05:42 12/16/16 05:42 12/15/16 12/16/16 12/17/16 05:59 05:59 05:59 Intake Total 500 300 Output Total 8296 4226 027 Balance -6295 -1430 -950 Cefazolin # 5 Blood cultures 12/14/2016 no growth to date Hand x-ray without evidence of fracture - Physical Exam General Appearance: alert, apparent distress (Due to pain), non-toxic EENT: No conjunctival petechiae Neck: other (Tender with lateral range of motion, right greater than left, nontender over cervical spine) Cardiac/Chest: regular rate, rhythm, No systolic murmur Extremities: other (Left upper extremity with persistent edema) Abdomen: non-tender, No distended Skin: No embolic lesions ICD10 Worksheet Patient Problems: Problems Problem Status Onset Intracranial hemorrhage Acute Laceration of head Acute Lip laceration Acute Renal insufficiency Acute C. difficile diarrhea Acute 10/30/14
[2016-12-16] MEDS ORDERED: GADOBUTROL 10 ML VIAL IVP ONE (11:58)
--- NOTE | 2016-12-16 14:55 | NEUSURGPN ---
Assessment/Plan: A: 66 yo M s/p fall with frontal tSAH, neck pain. MRI c/ T spine with epidural fluid collection. Pt underwent new MRI of C/T spine today. Dr Montoya contacted me and requested NS review images. Final report is pending - comparing new/old images the cervical epidural abscess appears stable overall. Also, pt has UE DVT - ok for prophylactic dose of anticoag for this. I reviewed this patient with Dr. Bay over the phone and he agrees. Please call NS with any questions or concerns. We will see again Sunday. If any further issues please call us. Catheter Insertion Date: 12/10/16 - Physician Discussed Patient with : [facility] Physical Exam - Vitals, I&O, Labs I and O 12/15/16 12/16/16 12/17/16 05:59 05:59 05:59 Intake Total 500 300 Output Total 1875 2900 950 Balance -1375 -2600 -950 Intake: Oral (ml) 300 IV Infused (ml) 500 POTASSIUM Cl (KCl) 40 meq 500 In Ns 1,000 ml @ 100 mls /hr IV CONT MARTIR Rx#: [id number] Output: Urine (ml) 1875 2900 950 Urinal 1875 2900 950 Other: Intake Quantity Yes Yes Sufficient Number of Voids Urinal 2 Number of Stools Bedside Commode 1 Urinal 1 Microbiology 12/11/16 10:30 - Final Sputum, Expectorated Sputum Culture - Final Nina Albicans 12/14/16 08:35 - Final Sputum, Expectorated Sputum Culture - Final 12/12/16 12:40 Gram Stain - Final Pleural Fluid - Aspirate Body Fluid Culture - Final Vital Signs Temp Pulse Resp BP Pulse Ox 37.1 C 90 16 142/98 H 93 12/16/16 08:00 12/16/16 11:53 12/16/16 11:53 12/16/16 08:00 12/16/16 11:53 Laboratory Results 12/16/16 05:42 12/16/16 05:42 ICD10 Worksheet Patient Problems: Problems Problem Status Onset Intracranial hemorrhage Acute Laceration of head Acute Lip laceration Acute Renal insufficiency Acute C. difficile diarrhea Acute 10/30/14
[2016-12-16] MEDS ORDERED: IOPAMIDOL (ISOVUE-300) 100 ML BTL ONE (15:02)
[2016-12-16] MEDS: NS 1,000 ML IV SCH (16:25)
--- NOTE | 2016-12-16 19:23 | GCON ---
[f rep st] CONSULTATION REASON FOR CONSULTATION: Prevertebral phlegmon/abscess extending from level of the hypopharynx down to the thoracic inlet. HISTORY: The patient is a 66-year-old male who presented to the hospital, and has been found to have an epidural infection, as well as the above-mentioned abscess. I was consulted to present an approach for his care. He is known to have a methicillin sensitive Staph aureus identified by a blood culture. He is on Ancef. The area in question is more prominent than it was 2 days ago. Last night he had a very uncomfortable night, complaining of mid and low back pain. He is feeling better today. The CT scan was done as a followup to his 2 prior examinations. His temperature has been in the normal range over the last 24 hours. His white count has gone from 8.6 to 11.25. This is coupled with a drop in the immature granulocytes 1.7% to 1.2%. His case was discussed extensively with Dr. Juvenal Montoya (primary hospitalist) and Dr. Walker Santiago (Infectious Disease). Given the fact that the fluid collection probably would on exploration be approximately 3-4 cc maximum and that the bulk of the area in question appears to be a phlegmon, we have decided to defer for 36 hours and to continue IV antibiotics. At that point, a CT scan will be re-obtained. If we see the same or decreased volume, a nonoperative approach will be continued. Certainly if he deteriorates in the interim or if we see a much larger area of infected liquid, surgical exploration will be undertaken to drain the area. I discussed the case with his daughter, and she understands and agrees to our approach. She will convey that to the rest of the family. /[id number]/MODL MTDD
[2016-12-16] MEDS: DILTIAZEM CD 120 MG CAP PO SCH (22:38)
[2016-12-16] MEDS: ACETAMINOPHEN 500 MG TAB PO SCH (22:38)
[2016-12-16] MEDS: OLANZapine 5 MG TAB PO SCH (22:39)
[2016-12-16] MEDS: guaiFENesin/CODEINE PHOS 10 ML UDCUP PO PRN (22:50)
[2016-12-16] MEDS: TESTOSTERONE TP SCH (23:28)
[2016-12-17] MEDS: ZOLPIDEM TARTRATE 5 MG TAB PO PRN (01:36)
[2016-12-17] MEDS: NS 1,000 ML IV SCH (02:38)
[2016-12-17 05:08] LABS: % IMMATURE GRANULYOCYTES 1.1 % (0.0-1.1); ABSOLUTE IMMATURE GRANULOCYTES 0.13 10^3/uL (0.00-0.10); ADD DIFF? NO; ADD MORPH? NO; ADD SCAN? NO; ATYPICAL LYMPHOCYTE FLAG 30 (0-99); FRAGMENT RBC FLAG 0 (0-99); HEMATOCRIT 34.6 % (40.0-51.0); HEMOGLOBIN 11.7 g/dL (13.7-17.5); LEFT SHIFT FLG 10 (0-99); LIPEMIA HEMOLYSIS FLAG 90 (0-99); MEAN CELL HEMOGLOBIN 33.1 pg (27.9-34.1); MEAN CELL HEMOGLOBIN CONCENTR. 33.8 g/dL (32.4-36.7); MEAN CELL VOLUME 97.7 fL (81.5-99.8); MEAN PLATELET VOLUME 10.3 fL (8.7-11.7); PLATELET CLUMPS FLAG 0 (0-99); PLATELET COUNT 181 10^3/uL (150-400); RED BLOOD CELL COUNT 3.54 10^6/uL (4.40-6.38); RED CELL DISTRIBUTION WIDTH 14.3 % (11.5-15.2)
[2016-12-17 05:18] LABS: ANION GAP 6 mEq/L (8-16); CALCIUM 8.1 mg/dL (8.5-10.4); CARBON DIOXIDE 24 mEq/l (22-31); CHLORIDE 105 mEq/L (97-110); CREATININE 1.1 mg/dL (0.7-1.3); GLOMERULAR FILTRATION RATE > 60; GLUCOSE 92 mg/dL (70-100); POTASSIUM 3.9 mEq/L (3.5-5.2); SODIUM 135 mEq/L (134-144)
[2016-12-17] MEDS: ceFAZolin 2 GM/DEXTROSE 100 ML IV SCH ×3 (05:31→21:56)
[2016-12-17] MEDS: IPRATROPIUM BROMIDE 0.5 MG/2.5 ML DEYVIAL IH SCH ×4 (06:13→20:43)
[2016-12-17] MEDS: LEVALBUTEROL 0.63 MG/3 ML DEYVIAL IH SCH ×4 (06:14→20:43)
--- NOTE | 2016-12-17 08:43 | HOSPPROG ---
Hospitalist Progress Note Assessment/Plan: # severe sepsis - d/t MSSA bacteremia # MSSA bacteremia, persistent - - BCx+ 12/10, 12/12 - NGTD from 12/14 - cont ancef per ID # epidural phlegmon - d/t staph a - nsg involved, no surgery now # prevertebral phlegmon/mediastinitis - long discussion yesterday with ID and gen surg; also Dr Kay reviewed films - at this point surgery is unlikely to help as there is no clear fluid to drain - repeat CT tomorrow and consider surgery based on findings # hx PE - warfarin reversed on admission # UE DVT - start ppx dose lovenox (ok'd by nsg) - treatment dose too risky given SDH and SAH - Q4H neuro checks today # LE edema - check LE US - consider IVCF if there is a DVT # volume status - slight hypervolemia - monitor daily weights, IOs - start lasix PO today # RONAN on CKD - resolved, pre-renal # indet troponin - likely demand # SVT, resolved though now he has significant ectopy - significant PACs and VPCs , no couplets though - follow on tele - dilt # acute encephalopathy - improved # acute hypoxic resp failure - d/t pleural effusions, RAD; better today; stop lasix for now # RAD exacerbation, better with xopenex and prednisone (taper soon) - taper pred today to 20mg # pleural effusion s/p thora, fluid neg # SAH/SDH, traumatic - AC as above # hypoNa - resolved # hep B/hep C s/p treatment # HIV - on meds Subjective: no worsening pain overnight; L arm still swollen Objective: Vital Signs Temp Pulse Resp BP Pulse Ox 36.2 C 73 16 142/91 H 98 12/17/16 07:11 12/17/16 07:11 12/17/16 07:11 12/17/16 07:11 12/17/16 07:11 Laboratory Results 12/17/16 04:50 12/17/16 04:50 12/16/16 12/17/16 12/18/16 05:59 05:59 05:59 Intake Total 300 750 Output Total 2900 1450 Balance -2600 -700 PT 17.1 SEC (12.0-15.0) H 12/13/16 04:20 INR 1.40 (0.83-1.16) H 12/13/16 04:20 high risk - Physical Exam Constitutional: no apparent distress, appears nourished Cardiovascular: regular rate and rhythym, no murmur, rub, or gallop Respiratory: no respiratory distress, no rales or rhonchi, clear to auscultation Gastrointestinal: normoactive bowel sounds, soft, non-tender abdomen, no palpable masses Musculoskeletal: other (LUE edema) ICD10 Worksheet Patient Problems: Problems Problem Status Onset C. difficile diarrhea Acute 10/30/14 Laceration of head Acute Lip laceration Acute Renal insufficiency Acute Intracranial hemorrhage Acute
[2016-12-17] MEDS ORDERED: ENOXAPARIN 40 MG/0.4 ML SYR SC SCH (09:00)
[2016-12-17] MEDS: ACETAMINOPHEN 500 MG TAB PO SCH ×3 (09:43→21:56)
[2016-12-17] MEDS: SENNOSIDES/DOCUSATE SODIUM TAB PO SCH ×2 (09:44→21:57)
[2016-12-17] MEDS: DULoxetine 30 MG CAP PO SCH ×2 (09:44→21:58)
[2016-12-17] MEDS: predniSONE 20 MG TAB PO SCH (09:45)
[2016-12-17] MEDS: RALTEGRAVIR 400 MG TAB PO SCH ×2 (09:47→22:00)
[2016-12-17] MEDS: DARUNAVIR ETHANOLATE 800 MG TAB PO SCH (09:47)
[2016-12-17] MEDS: RITONAVIR 100 MG TAB PO SCH (09:47)
[2016-12-17] MEDS: Teriparatide [Forteo] 2.4 ML SQ SCH (09:49)
[2016-12-17] MEDS: ENTECAVIR 1 MG PO SCH (09:50)
[2016-12-17] MEDS: FUROSEMIDE 20 MG TAB PO SCH ×2 (09:53→16:49)
[2016-12-17 10:13] LABS: INR 1.42 (0.83-1.16); PROTIME(PATIENT) 17.3 SEC (12.0-15.0)
[2016-12-17] MEDS: LORazepam 2 MG/ML INJ IV PRN (10:38)
[2016-12-17] MEDS: oxyCODONE IR 5 MG TAB PO PRN (12:04)
--- NOTE | 2016-12-17 16:06 | PCMIDPN ---
Assessment/Plan: Assessment/Plan: * Sepsis due to MSSA bacteremia associated with cervical epidural/ retropharyngeal phlegmon: Pain improved today although still limited range of motion with lateral rotation in neck. Blood cultures from 12/14/2016 remain no growth. Plan repeat chest CT and neck CT tomorrow to reassess phlegmonous collections to determine if have of all then to drainable foci. Continue cefazolin. * HIV: Continue anti-retroviral therapy. * Hepatitis-B: Continue entecavir. * Pleural effusion status post thoracentesis: Pleural fluid culture remains negative. Cytology negative for malignant cells. 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 Findings and plan reviewed with patient, family, Dr. Montoya and Dr. Ponce. 12/17/16 16:03 Subjective: Less pain overnight. No recurrent upper back pain. Objective: Vital Signs Temp Pulse Resp BP Pulse Ox 36.9 C 88 18 143/91 H 95 12/17/16 15:22 12/17/16 15:22 12/17/16 15:22 12/17/16 15:22 12/17/16 15:22 Laboratory Results 12/17/16 04:50 12/17/16 04:50 12/16/16 12/17/16 12/18/16 05:59 05:59 05:59 Intake Total 300 750 300 Output Total 2900 1450 300 Balance -2600 -700 0 Cefazolin # 6 Blood cultures 12/14/2016 no growth - Physical Exam General Appearance: alert, no apparent distress, non-toxic EENT: No thrush, No conjunctival petechiae Respiratory: lungs clear, No respiratory distress Neck: other (Tender with lateral range of motion, right greater than left with improved range of motion on left, no point tenderness over cervical spine; mild tenderness over right anterior neck without erythema) Cardiac/Chest: regular rate, rhythm, other (No pain over right anterior chest) Extremities: other (Left upper extremity edema slightly less prominent) Abdomen: non-tender, No distended Skin: No embolic lesions ICD10 Worksheet Patient Problems: Problems Problem Status Onset Intracranial hemorrhage Acute Laceration of head Acute Lip laceration Acute Renal insufficiency Acute C. difficile diarrhea Acute 10/30/14
[2016-12-17] MEDS: OLANZapine 5 MG TAB PO SCH (21:56)
[2016-12-17] MEDS: DILTIAZEM CD 120 MG CAP PO SCH (21:57)
[2016-12-18] MEDS: TESTOSTERONE TP SCH ×2 (00:25→21:29)
[2016-12-18 04:57] LABS: ADD DIFF? NO; ADD MORPH? NO; ADD SCAN? NO; ATYPICAL LYMPHOCYTE FLAG 20 (0-99); FRAGMENT RBC FLAG 0 (0-99); HEMATOCRIT 33.3 % (40.0-51.0); HEMOGLOBIN 11.4 g/dL (13.7-17.5); LEFT SHIFT FLG 0 (0-99); LIPEMIA HEMOLYSIS FLAG 90 (0-99); MEAN CELL HEMOGLOBIN 33.4 pg (27.9-34.1); MEAN CELL HEMOGLOBIN CONCENTR. 34.2 g/dL (32.4-36.7); MEAN CELL VOLUME 97.7 fL (81.5-99.8); MEAN PLATELET VOLUME 10.3 fL (8.7-11.7); PLATELET CLUMPS FLAG 0 (0-99); PLATELET COUNT 197 10^3/uL (150-400); RED BLOOD CELL COUNT 3.41 10^6/uL (4.40-6.38); RED CELL DISTRIBUTION WIDTH 13.9 % (11.5-15.2)
[2016-12-18 05:06] LABS: INR 1.39 (0.83-1.16)
[2016-12-18 05:16] LABS: ANION GAP 7 mEq/L (8-16); CARBON DIOXIDE 25 mEq/l (22-31); CHLORIDE 103 mEq/L (97-110); GLOMERULAR FILTRATION RATE > 60; GLUCOSE 86 mg/dL (70-100); POTASSIUM 3.7 mEq/L (3.5-5.2); SODIUM 135 mEq/L (134-144)
[2016-12-18] MEDS: LEVALBUTEROL 0.63 MG/3 ML DEYVIAL IH SCH ×4 (05:50→21:07)
[2016-12-18] MEDS: IPRATROPIUM BROMIDE 0.5 MG/2.5 ML DEYVIAL IH SCH ×4 (05:50→21:07)
[2016-12-18] MEDS: ceFAZolin 2 GM/DEXTROSE 100 ML IV SCH ×3 (05:58→21:26)
[2016-12-18] MEDS: LORazepam 2 MG/ML INJ IV PRN ×2 (07:54→12:02)
[2016-12-18] MEDS: oxyCODONE IR 5 MG TAB PO PRN ×4 (07:59→21:26)
[2016-12-18] MEDS: ENTECAVIR 1 MG PO SCH (08:00)
[2016-12-18] MEDS: FUROSEMIDE 20 MG TAB PO SCH ×2 (08:02→15:21)
[2016-12-18] MEDS: RALTEGRAVIR 400 MG TAB PO SCH ×2 (08:04→21:33)
[2016-12-18] MEDS: RITONAVIR 100 MG TAB PO SCH (08:07)
[2016-12-18] MEDS: ACETAMINOPHEN 500 MG TAB PO SCH ×3 (08:10→21:28)
[2016-12-18] MEDS ORDERED: ALTEPLASE 2 MG VIAL IVP PRN (09:37)
[2016-12-18] MEDS ORDERED: IOPAMIDOL (ISOVUE-300) 100 ML BTL ONE (10:10)
[2016-12-18] MEDS: HYDROmorphONE/DILAUDID 1 MG/ML INJ IVP PRN ×2 (10:56→13:44)
--- NOTE | 2016-12-18 11:59 | SOAPPROG ---
SCOTT Progress Note Assessment/Plan: 12/18/16 11:59 Assessment: Discussed case with Drs. Santiago and Jan while reviewing current CT with them and Radiology. It appears that the prevertebral fluid collection is smaller and the other areas are unchanged. He is up and walking, afebrile with dropping WBC count. Plan: Our consensus is to not intervene surgically at this simba but rather continue an antibiotic approach. A follow up CT will be planned for 3-4 days from now but will be moved up if he deteriorates in the interim. Subjective: Feeling better Objective: Vital Signs Temp Pulse Resp BP Pulse Ox 37.3 C 99 20 149/77 H 94 12/18/16 07:12 12/18/16 07:12 12/18/16 07:12 12/18/16 07:12 12/18/16 07:12 Microbiology 12/12/16 09:20 Blood Culture - Final Blood Laboratory Results 12/18/16 04:47 12/18/16 04:47 12/17/16 12/18/16 12/19/16 05:59 05:59 05:59 Intake Total 750 600 Output Total 1450 1900 1375 Balance -700 -1300 -1375 PT 17.0 SEC (12.0-15.0) H 12/18/16 04:47 INR 1.39 (0.83-1.16) H 12/18/16 04:47 ICD10 Worksheet Patient Problems: Problems Problem Status Onset Intracranial hemorrhage Acute Laceration of head Acute Lip laceration Acute Renal insufficiency Acute C. difficile diarrhea Acute 10/30/14
[2016-12-18] MEDS: predniSONE 20 MG TAB PO SCH (12:56)
[2016-12-18] MEDS: DULoxetine 30 MG CAP PO SCH ×2 (12:56→21:29)
[2016-12-18] MEDS: SENNOSIDES/DOCUSATE SODIUM TAB PO SCH ×2 (13:03→21:28)
[2016-12-18] MEDS: DARUNAVIR ETHANOLATE 800 MG TAB PO SCH (13:04)
[2016-12-18] MEDS: Teriparatide [Forteo] 2.4 ML SQ SCH (13:05)
--- NOTE | 2016-12-18 14:05 | PCMIDPN ---
Assessment/Plan: Assessment/Plan: * Sepsis due to MSSA bacteremia associated with cervical epidural/ retropharyngeal phlegmon: Overall clinically improved with residual pain with rotation of neck. Blood cultures from 12/14/[address] show [address] growth. Repeat CT scan of chest shows improvement in prevertebral inflammatory change with stable mediastinal changes. Given stability, will continue with IV cefazolin with repeat imaging on to assess for any interval progression that would necessitate surgical drainage. * HIV: Continue anti-retroviral therapy. * Hepatitis-B: Continue entecavir. * Pleural effusion status post thoracentesis: Pleural fluid culture remains negative. Cytology negative for malignant cells. * Left upper extremity edema: Ultrasound shows partially occlusive clot. 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 12/18/16 14:03 Subjective: Patient with persistent neck pain particularly with range of motion laterally. No interval change. Objective: Vital Signs Temp Pulse Resp BP Pulse Ox 36.9 C 121 H 20 151/88 H 94 12/18/16 12:00 12/18/16 12:00 12/18/16 12:00 12/18/16 12:00 12/18/16 12:00 Microbiology 12/12/16 09:20 Blood Culture - Final Blood Laboratory Results 12/18/16 04:47 12/18/16 04:47 12/17/16 12/18/16 12/19/16 05:59 05:59 05:59 Intake Total 750 600 400 Output Total 1450 1900 1375 Balance -700 -1300 -975 Cefazolin # 7 Blood cultures 12/14/2016 no growth - Physical Exam General Appearance: alert, no apparent distress EENT: pharynx normal, No conjunctival petechiae Respiratory: lungs clear, No respiratory distress Neck: other (Pain with lateral range of motion although range of motion appears improved, no point tenderness over cervical or thoracic spine) Cardiac/Chest: regular rate, rhythm, No systolic murmur Abdomen: non-tender, No distended Skin: No embolic lesions ICD10 Worksheet Patient Problems: Problems Problem Status Onset Intracranial hemorrhage Acute Laceration of head Acute Lip laceration Acute Renal insufficiency Acute C. difficile diarrhea Acute 10/30/14
--- NOTE | 2016-12-18 14:10 | HOSPPROG ---
Hospitalist Progress Note Assessment/Plan: # prevertebral phlegmon/mediastinitis - CT reviewed today - feel that surgical intervention still not warranted given difficulty of access and improvement overall - repeat CT in 3 days # epidural phlegmon - d/t staph a - nsg involved, no surgery now # severe sepsis - d/t MSSA bacteremia # MSSA bacteremia, persistent - - BCx+ 12/10, 12/12 - NGTD from 12/14 - cont ancef per ID # UE DVT - start ppx dose lovenox (ok'd by nsg) - treatment dose too risky given SDH and SAH - Q4H neuro checks today # hx PE - warfarin reversed on admission # volume status - slight hypervolemia - monitor daily weights, IOs - lasix PO restarted yesterday # RONAN on CKD - resolved, pre-renal # indet troponin - likely demand # SVT, resolved though now he has significant ectopy - significant PACs and VPCs , no couplets though - follow on tele - dilt # acute encephalopathy - improved # acute hypoxic resp failure - d/t pleural effusions, RAD; better today # RAD exacerbation, better with xopenex and prednisone - pred tapered yesterday to 20 - taper soon # pleural effusion s/p thora, fluid neg # SAH/SDH, traumatic - AC as above # hypoNa - resolved # hep B/hep C s/p treatment # HIV - on meds Subjective: pain still significant Objective: Vital Signs Temp Pulse Resp BP Pulse Ox 36.9 C 121 H 20 151/88 H 94 12/18/16 12:00 12/18/16 12:00 12/18/16 12:00 12/18/16 12:00 12/18/16 12:00 Microbiology 12/12/16 09:20 Blood Culture - Final Blood Laboratory Results 12/18/16 04:47 12/18/16 04:47 12/17/16 12/18/16 12/19/16 05:59 05:59 05:59 Intake Total 750 600 400 Output Total 1450 1900 1375 Balance -700 -1300 -975 PT 17.0 SEC (12.0-15.0) H 12/18/16 04:47 INR 1.39 (0.83-1.16) H 12/18/16 04:47 discussed with Lexi Santiago and Rosario CT personally reviewed with radiology - Time Spent With Patient Time Spent with Patient: greater than 35 minutes Time Spent with Patient: Greater than 35 minutes spent on this patients care, greater than 50% of time spent counseling, educating, and coordinating care regarding the above mentioned plan. - Physical Exam Constitutional: other (lying in bed, covered by blankets) ICD10 Worksheet Patient Problems: Problems Problem Status Onset C. difficile diarrhea Acute 10/30/14 Laceration of head Acute Lip laceration Acute Renal insufficiency Acute Intracranial hemorrhage Acute
[2016-12-18] MEDS: ENOXAPARIN 40 MG/0.4 ML SYR SC SCH (15:22)
--- NOTE | 2016-12-18 15:32 | ASMTCMCOM ---
CM Note CM Note Notes: Spoke w/MD, pt still quite ill dc date unclear. Pt may need snf, referrals sent to /CAN/[facility] rehab. JUJU w/f Date Signed: 12/18/2016 03:32 PM Electronically Signed By:Krystina Zaidi
[2016-12-18] MEDS: DIAZEPAM 5 MG TAB PO PRN (17:47)
[2016-12-18] MEDS: OLANZapine 5 MG TAB PO SCH (21:28)
[2016-12-18] MEDS: DILTIAZEM CD 120 MG CAP PO SCH (21:28)
[2016-12-18] MEDS: ZOLPIDEM TARTRATE 5 MG TAB PO PRN (23:09)
[2016-12-19 05:15] LABS: % IMMATURE GRANULYOCYTES 0.9 % (0.0-1.1); ABSOLUTE IMMATURE GRANULOCYTES 0.11 10^3/uL (0.00-0.10); ADD DIFF? NO; ADD MORPH? NO; ADD SCAN? NO; ATYPICAL LYMPHOCYTE FLAG 10 (0-99); FRAGMENT RBC FLAG 0 (0-99); HEMATOCRIT 36.7 % (40.0-51.0); HEMOGLOBIN 12.3 g/dL (13.7-17.5); LEFT SHIFT FLG 0 (0-99); LIPEMIA HEMOLYSIS FLAG 80 (0-99); MEAN CELL HEMOGLOBIN CONCENTR. 33.5 g/dL (32.4-36.7); MEAN CELL VOLUME 98.4 fL (81.5-99.8); MEAN PLATELET VOLUME 10.6 fL (8.7-11.7); PLATELET CLUMPS FLAG 0 (0-99); PLATELET COUNT 237 10^3/uL (150-400); RED BLOOD CELL COUNT 3.73 10^6/uL (4.40-6.38); RED CELL DISTRIBUTION WIDTH 13.7 % (11.5-15.2)
[2016-12-19] MEDS: oxyCODONE IR 5 MG TAB PO PRN ×3 (05:16→17:56)
[2016-12-19] MEDS: DIAZEPAM 5 MG TAB PO PRN ×3 (05:17→20:44)
[2016-12-19] MEDS: ceFAZolin 2 GM/DEXTROSE 100 ML IV SCH ×3 (05:18→21:09)
[2016-12-19 05:38] LABS: ANION GAP 4 mEq/L (8-16); CALCIUM 8.5 mg/dL (8.5-10.4); CARBON DIOXIDE 28 mEq/l (22-31); CHLORIDE 99 mEq/L (97-110); GLOMERULAR FILTRATION RATE > 60; GLUCOSE 92 mg/dL (70-100); POTASSIUM 4.2 mEq/L (3.5-5.2); SODIUM 131 mEq/L (134-144)
[2016-12-19] MEDS: IPRATROPIUM BROMIDE 0.5 MG/2.5 ML DEYVIAL IH SCH ×4 (05:46→20:21)
[2016-12-19] MEDS: LEVALBUTEROL 0.63 MG/3 ML DEYVIAL IH SCH ×4 (05:47→20:21)
--- NOTE | 2016-12-19 07:07 | NEUSURGPN ---
Assessment/Plan: Assessment: 66 yo M s/p fall with frontal tSAH, neck pain. MRI C/T spine with epidural fluid collection-continued neuro intact Plan: -MRI C spine w/contrast reviewed by Dr Alcala-larger fluid collection noted retropharyngeal space on a prior study. ENT saw and evaluated as well -No surgical intervention indicated at this time. Continue IV abx per ID -BC x 2 (recent ones on 12/14) show no growth at 36 hrs -Recommend repeat MRI C-spine with and without contrast in 1 month-may be sooner per ID recommendations -Discussed with Dr. Alcala -call with any questions or concerns -follow up with Dr Umaña team-please call for an appt in next few weeks-sooner if MRI ordered by ID -pt understands and agrees Subjective: Awake and alert. NAD. Eating/drinking and voiding. No f/c/n/v/d. Objective: Awake. Alert. PERRL. EOMI Facial expression symmetrical Muscle strength full at 5/5 Sensation intact Neuro Check Frequency: per routine Urinary Catheter in Place: No Catheter Insertion Date: 12/10/16 - Physician Discussed Patient with Dr.: Alcala Neurosurgery Physical Exam - Vitals, I&O, Labs I and O 12/18/16 12/19/16 12/20/16 05:59 05:59 05:59 Intake Total 600 400 Output Total 1900 2175 Balance -1300 -1775 Weight 83.2 kg Intake: Oral (ml) 600 400 Output: Urine (ml) 1900 2175 Bedside Commode 50 Urinal 1850 2175 Other: Intake Quantity Yes Yes Sufficient Number of Voids Bedside Commode 1 Urinal 2 1 Number of Stools Bedside Commode 1 1 Microbiology 12/12/16 09:20 Blood Culture - Final Blood Vital Signs Temp Pulse Resp BP Pulse Ox 36.4 C 67 12 131/88 H 93 12/19/16 04:00 12/19/16 04:00 12/19/16 04:00 12/19/16 04:00 12/19/16 04:00 Laboratory Results 12/19/16 04:21 12/19/16 04:21 ICD10 Worksheet Patient Problems: Problems Problem Status Onset Intracranial hemorrhage Acute Laceration of head Acute Lip laceration Acute Renal insufficiency Acute C. difficile diarrhea Acute 10/30/14
--- NOTE | 2016-12-19 09:21 | HOSPPROG ---
Hospitalist Progress Note Assessment/Plan: 66-year-old male presents with weakness and found to have a prevertebral, epidural phlegmon. Patient has been evaluated by Neurosurgery and and no surgery is indicated at this time. Patient new to me today - Prevertebral, retropharygeal phlegmon on and self per ID. Blood cultures are positive on a 12/10 and 12/12; BC - on 12/14. Patient continues on Ancef. -New problem: ankle swellling; check x-ray for fluid -severe sepsis 2/2 MSSA bacteremia, POA -UE DVT - on Lovenox PPX. Full dose treatment too risky per NS due to prior SDH and SAH -h/o PE, was on warfarim on admission, reversed on admission. Currently on ppx lovenox -SKI on CKD on admission, no resolved -Volume status slightly hypervolemic, will monitor status, I&O, weights -SVT no resolved, continues to have significant ectopy of PAC's and PVS's without runs or couplets. Patient on diltiazem -RAD, acute exacerbation, better on xopenox and prednisone. Will continue to taper prednisone slowly -pleural effusion, s/o thoracentesis, fluid was negative -SAH/SDH prior, traumatic - on anticoag of PPX lovenox, wee above -Hepatitic B and Hepatitis C; s/p treatment -HIV positive on therapy Subjective: No complaints Objective: Vital Signs Temp Pulse Resp BP Pulse Ox 36.9 C 76 12 129/82 H 97 12/19/16 07:19 12/19/16 07:19 12/19/16 07:19 12/19/16 07:19 12/19/16 07:19 Microbiology 12/12/16 09:20 Blood Culture - Final Blood Staphylococcus Aureus 12/12/16 09:20 Blood Culture - Final Blood Laboratory Results 12/19/16 04:21 12/19/16 04:21 12/18/16 12/19/16 12/20/16 05:59 05:59 05:59 Intake Total 600 400 Output Total 1900 2175 400 Balance -1300 -1775 -400 PT 17.0 SEC (12.0-15.0) H 12/18/16 04:47 INR 1.39 (0.83-1.16) H 12/18/16 04:47 Laboratory Tests 12/14/16 12/16/16 12/17/16 04:15 05:42 04:50 WBC 11.25 H 11.72 H Hgb 11.3 L Plt Count 79 L INR Sodium 12/17/16 12/18/16 12/18/16 09:37 04:47 04:47 WBC 9.93 H Hgb Plt Count INR 1.42 H 1.39 H Sodium 12/18/16 12/19/16 12/19/16 04:47 04:21 04:21 WBC 11.83 H Hgb 12.3 L Plt Count 237 INR Sodium 135 131 L ICD10 Worksheet Patient Problems: Problems Problem Status Onset Intracranial hemorrhage Acute Laceration of head Acute Lip laceration Acute Renal insufficiency Acute C. difficile diarrhea Acute 10/30/14
[2016-12-19] MEDS: ENOXAPARIN 40 MG/0.4 ML SYR SC SCH (09:38)
[2016-12-19] MEDS: SENNOSIDES/DOCUSATE SODIUM TAB PO SCH ×3 (09:38→20:45)
[2016-12-19] MEDS: predniSONE 20 MG TAB PO SCH (09:43)
[2016-12-19] MEDS: FUROSEMIDE 20 MG TAB PO SCH ×2 (09:43→15:05)
[2016-12-19] MEDS: ACETAMINOPHEN 500 MG TAB PO SCH ×3 (09:44→21:08)
[2016-12-19] MEDS: CEPACOL LOZENGE PO PRN ×2 (09:44→20:45)
[2016-12-19] MEDS: DULoxetine 30 MG CAP PO SCH ×2 (09:45→20:44)
[2016-12-19] MEDS: RITONAVIR 100 MG TAB PO SCH (09:45)
--- NOTE | 2016-12-19 09:50 | WOCRNPDOC ---
[facility] Advanced Assessment Note - Skin Integrity Problem, Advanced Assess Right Toe Abrasion Dressing Type: Open to Air Exudate Amount: None Mia Wound Tissue: Contused Wound Bed Constitution: Smooth Tissue Site Measurement - Head-to-Toe Length X Width X Depth (cm): 0.5x2x0.1 Skin Integrity Problem Comment: Two small lacerations on proximal nail fold. Both partial thickness without sign of infection. No heat, nor erythema. Patient able to move toe well and without much pain though he has altered sensation in his toes. Wound care will sign off. Treat with wound gel and allevyn dressing.
[2016-12-19] MEDS: Teriparatide [Forteo] 2.4 ML SQ SCH (09:57)
[2016-12-19] MEDS: DARUNAVIR ETHANOLATE 800 MG TAB PO SCH (09:59)
[2016-12-19] MEDS: ENTECAVIR 1 MG PO SCH (11:44)
[2016-12-19] MEDS: RALTEGRAVIR 400 MG TAB PO SCH ×2 (11:45→21:08)
--- NOTE | 2016-12-19 13:49 | PCMIDPN ---
Assessment/Plan: Assessment/Plan: 1. MSSa bacteremia/sepsis with Cervical epidural collection and retropharngyeal phlegmon - f/u blood cx from 12/14/16 finally ngtd -Currently on Ancef therapy -Recent images reviewed -Appreciate NSG eval - new left ankle swelling. check xray to assess joint effusion. - Care coordinated with RN, hospitalist team Meds Ancef 2g q8- 12/11/16. ---#6 from negative cultures. Subjective: afebrile. denies sob, abd pain or diarrhea. neck pain better. has some pain with swallowing certain foods. swelling of LUE. swelling of left ankle today. Also with swelling of b/l LE. Objective: Vital Signs Temp Pulse Resp BP Pulse Ox 37.0 C 96 24 H 129/82 H 95 12/19/16 11:20 12/19/16 11:20 12/19/16 11:20 12/19/16 11:20 12/19/16 11:20 Microbiology 12/12/16 09:20 Blood Culture - Final Blood Staphylococcus Aureus 12/12/16 09:20 Blood Culture - Final Blood Laboratory Results 12/19/16 04:21 12/19/16 04:21 12/18/16 12/19/16 12/20/16 05:59 05:59 05:59 Intake Total 600 400 400 Output Total 1900 2175 400 Balance -1300 -1775 0 - Physical Exam General Appearance: alert, no apparent distress Respiratory: coarse breath sounds (bases) Cardiac/Chest: regular rate, rhythm Extremities: swelling (bl LE and LUE ), other (left ankle swelling. mild warmth. non tender to palpate.no ovelrying erythema.) Abdomen: normal bowel sounds, non-tender, soft, No distended Skin: other (left great toe with eccyhmosis and superfical skin breakdown in two spots .) ICD10 Worksheet Patient Problems: Problems Problem Status Onset Intracranial hemorrhage Acute Laceration of head Acute Lip laceration Acute Renal insufficiency Acute C. difficile diarrhea Acute 10/30/14
[2016-12-19] MEDS ORDERED: HYDROmorphONE/DILAUDID 1 MG/ML INJ IVP PRN (16:58)
[2016-12-19] MEDS: POLYETHYLENE GLYCOL 3350 17 GM PKT PO PRN (19:10)
[2016-12-19] MEDS: DILTIAZEM CD 120 MG CAP PO SCH (20:44)
[2016-12-19] MEDS: OLANZapine 5 MG TAB PO SCH (20:44)
[2016-12-19] MEDS: TESTOSTERONE TP SCH (21:07)
[2016-12-20] MEDS: ceFAZolin 2 GM/DEXTROSE 100 ML IV SCH ×3 (05:24→21:02)
[2016-12-20 05:42] LABS: % IMMATURE GRANULYOCYTES 0.9 % (0.0-1.1); ABSOLUTE IMMATURE GRANULOCYTES 0.08 10^3/uL (0.00-0.10); ADD DIFF? NO; ADD MORPH? NO; ADD SCAN? NO; ATYPICAL LYMPHOCYTE FLAG 40 (0-99); FRAGMENT RBC FLAG 0 (0-99); HEMATOCRIT 33.4 % (40.0-51.0); HEMOGLOBIN 11.1 g/dL (13.7-17.5); LEFT SHIFT FLG 0 (0-99); LIPEMIA HEMOLYSIS FLAG 80 (0-99); MEAN CELL HEMOGLOBIN 32.9 pg (27.9-34.1); MEAN CELL HEMOGLOBIN CONCENTR. 33.2 g/dL (32.4-36.7); MEAN CELL VOLUME 99.1 fL (81.5-99.8); MEAN PLATELET VOLUME 9.9 fL (8.7-11.7); PLATELET CLUMPS FLAG 0 (0-99); PLATELET COUNT 261 10^3/uL (150-400); RED BLOOD CELL COUNT 3.37 10^6/uL (4.40-6.38); RED CELL DISTRIBUTION WIDTH 13.5 % (11.5-15.2)
[2016-12-20] MEDS: LEVALBUTEROL 0.63 MG/3 ML DEYVIAL IH SCH ×4 (05:49→21:32)
[2016-12-20] MEDS: IPRATROPIUM BROMIDE 0.5 MG/2.5 ML DEYVIAL IH SCH ×4 (05:55→21:33)
[2016-12-20 06:06] LABS: ANION GAP 6 mEq/L (8-16); CALCIUM 8.2 mg/dL (8.5-10.4); CARBON DIOXIDE 29 mEq/l (22-31); CHLORIDE 98 mEq/L (97-110); CREATININE 1.1 mg/dL (0.7-1.3); GLOMERULAR FILTRATION RATE > 60; GLUCOSE 80 mg/dL (70-100); SODIUM 133 mEq/L (134-144)
[2016-12-20] MEDS: oxyCODONE IR 5 MG TAB PO PRN (07:16)
[2016-12-20] MEDS: DIAZEPAM 5 MG TAB PO PRN (07:16)
[2016-12-20] MEDS: ACETAMINOPHEN 500 MG TAB PO SCH ×3 (09:24→21:00)
[2016-12-20] MEDS: predniSONE 20 MG TAB PO SCH (09:27)
[2016-12-20] MEDS: DULoxetine 30 MG CAP PO SCH ×2 (09:27→21:01)
[2016-12-20] MEDS: FUROSEMIDE 20 MG TAB PO SCH ×2 (09:28→15:14)
[2016-12-20] MEDS: DARUNAVIR ETHANOLATE 800 MG TAB PO SCH (09:28)
[2016-12-20] MEDS: SENNOSIDES/DOCUSATE SODIUM TAB PO SCH ×2 (09:29→21:00)
[2016-12-20] MEDS: RALTEGRAVIR 400 MG TAB PO SCH ×2 (09:30→21:13)
[2016-12-20] MEDS: RITONAVIR 100 MG TAB PO SCH (09:30)
[2016-12-20] MEDS: ENOXAPARIN 40 MG/0.4 ML SYR SC SCH (09:31)
[2016-12-20] MEDS: CEPACOL LOZENGE PO PRN (09:32)
[2016-12-20] MEDS: Teriparatide [Forteo] 2.4 ML SQ SCH (09:50)
[2016-12-20] MEDS: ENTECAVIR 1 MG PO SCH (10:54)
--- NOTE | 2016-12-20 11:29 | SOAPPROG ---
SOAP Progress Note Assessment/Plan: Assessment: 66 yo M s/p fall with frontal tSAH, neck pain. MRI C/T spine with epidural fluid collection-continued neuro intact Plan: -repeat MRI C spine w/contrast showed stable epidural abscess. -No surgical intervention indicated at this time. Continue IV abx per ID -BC x 2 (recent ones on 12/14) show no growth after 5 days. -Recommend repeat MRI C-spine with and without contrast in 1 month-may be sooner per ID recommendations -Discussed with Dr. Alcala -call with any questions or concerns -follow up with Dr Alcala's team-please call for an appt in next few weeks- sooner if MRI ordered by ID -pt understands and agrees Subjective: Subjective: asleep, wakes easily and denies pain or new issues. Objective: Vital Signs Temp Pulse Resp BP Pulse Ox 37.2 C 88 18 146/68 H 94 12/20/16 07:31 12/20/16 10:47 12/20/16 10:47 12/20/16 07:31 12/20/16 10:47 Microbiology 12/14/16 15:20 Blood Culture - Final Blood 12/14/16 15:20 Blood Culture - Final Blood 12/12/16 09:20 Blood Culture - Final Blood Staphylococcus Aureus Laboratory Results 12/20/16 05:20 12/20/16 05:20 12/19/16 12/20/16 12/21/16 05:59 05:59 05:59 Intake Total 400 535 750 Output Total 2175 1600 325 Balance -1775 -1065 425 PT 17.0 SEC (12.0-15.0) H 12/18/16 04:47 INR 1.39 (0.83-1.16) H 12/18/16 04:47 neuro: Objective: Awake. Alert. PERRL. EOMI Facial expression symmetrical Muscle strength full at 5/5 Sensation intact ICD10 Worksheet Patient Problems: Problems Problem Status Onset Intracranial hemorrhage Acute Laceration of head Acute Lip laceration Acute Renal insufficiency Acute C. difficile diarrhea Acute 10/30/14
--- NOTE | 2016-12-20 16:18 | HOSPPROG ---
Hospitalist Progress Note Assessment/Plan: 66-year-old male presents with weakness and found to have a prevertebral, epidural phlegmon. Patient has been evaluated by Neurosurgery and and no surgery is indicated at this time. Patient presented and was found initially to have subarachnoid hemorrhage and punctate intercerebral hemorrhage. At the time of presentation he was on full-dose anticoagulation for pulmonary embolus. Today is reporting increasing pain and swelling in his left upper arm. No ultrasound shown a DVT and he had been on prophylactic doses of Lovenox for this. - Prevertebral, retropharygeal phlegmon on and self per ID. Blood cultures are positive on a 12/10 and 12/12; BC - on 12/14. Patient continues on Ancef. -left upper arm pain, new problem: Left upper arm is swollen tender although I cannot palpate a cord ultrasound shows clot in the axillary vein. He is on prophylactic doses of Lovenox due to a prior intracranial hemorrhage. I discussed with Dr. Mikal jay as to whether we can use anti-platelet drugs such as Toradol. -New problem: ankle swellling; x-ray was negative and no further pain today. -severe sepsis 2/2 MSSA bacteremia, POA, resolved -UE DVT - on Lovenox PPX. Full dose treatment too risky per NS due to prior SDH and SAH. Discussing the use of Toradol with Neurosurgery. -h/o PE, was on warfarim on admission, reversed on admission. Currently on ppx lovenox -SKI on CKD on admission, no resolved -Volume status slightly hypervolemic, will monitor status, I&O, weights -SVT no resolved, continues to have significant ectopy of PAC's and PVS's without runs or couplets. Patient on diltiazem -RAD, acute exacerbation, better on xopenox and prednisone. Will continue to taper prednisone slowly -pleural effusion, s/p thoracentesis, fluid was negative -SAH/SDH prior, traumatic - on anticoag of PPX lovenox, see above -Hepatitic B and Hepatitis C; s/p treatment -HIV positive on therapy Discussed with Mikal Crawley for Neurosurgery. Patient can be placed on full- dose anticoagulation and use of Toradol for pain relief. Case was discussed with Dr. Fine for neurosurgery also. Subjective: Reports severe left upper extremity pain despite pain medication. Noted also to be febrile. Objective: Vital Signs Temp Pulse Resp BP Pulse Ox 37.4 C 88 18 131/78 H 96 12/20/16 15:39 12/20/16 15:59 12/20/16 15:59 12/20/16 15:39 12/20/16 15:59 Microbiology 12/14/16 15:20 Blood Culture - Final Blood 12/14/16 15:20 Blood Culture - Final Blood Laboratory Results 12/20/16 05:20 12/20/16 05:20 12/19/16 12/20/16 12/21/16 05:59 05:59 05:59 Intake Total 400 535 750 Output Total 2175 1600 650 Balance -1775 -1065 100 PT 17.0 SEC (12.0-15.0) H 12/18/16 04:47 INR 1.39 (0.83-1.16) H 12/18/16 04:47 - Time Spent With Patient Time Spent with Patient: greater than 35 minutes Time Spent with Patient: Greater than 35 minutes spent on this patients care, greater than 50% of time spent counseling, educating, and coordinating care regarding the above mentioned plan. - Pending Discharge Pending Discharge Within 48 Hours: No - Physical Exam Constitutional: other (Appears in pain and mild distress) Eyes: PERRL, anicteric sclera Ears, Nose, Mouth, Throat: moist mucous membranes, hearing normal, ears appear normal, no oral mucosal ulcers Cardiovascular: regular rate and rhythym, no murmur, rub, or gallop Respiratory: no respiratory distress, no rales or rhonchi, clear to auscultation Gastrointestinal: normoactive bowel sounds, soft, non-tender abdomen, no palpable masses Genitourinary: no bladder fullness Skin: warm, other (Capillary refills normal) Musculoskeletal: generalized weakness, other (Left upper arm show significant swelling and edema without a palpable cord although the area is warm and is an area of significant tenderness and pain in the anterior deltoid. Passive and active range of motion of the shoulder are possible without worsening of the pain. He has good motor strength good sensory function.) Neurologic: AAOx3, CN II-XII Intact Psychiatric: interacting appropriately ICD10 Worksheet Patient Problems: Problems Problem Status Onset Intracranial hemorrhage Acute Laceration of head Acute Lip laceration Acute Renal insufficiency Acute C. difficile diarrhea Acute 10/30/14
[2016-12-20] MEDS ORDERED: KETOROLAC 30 MG/1 ML SDV IVP ONE (16:26)
[2016-12-20] MEDS ORDERED: ENOXAPARIN 80 MG/0.8 ML SYR SC SCH (16:30)
[2016-12-20] MEDS ORDERED: KETOROLAC 15 MG/1 ML SDV IVP SCH (16:30)
[2016-12-20] MEDS: POLYETHYLENE GLYCOL 3350 17 GM PKT PO PRN (17:27)
--- NOTE | 2016-12-20 18:40 | PCMIDPN ---
Assessment/Plan: Assessment/Plan: * Sepsis due to MSSA bacteremia associated with cervical epidural/ retropharyngeal phlegmon: Continued slow clinical improvement. Neck range of motion has improved. New onset shoulder pain today of unclear etiology. Exam more consistent with over musculature rather than shoulder joint. Should be able to visualize this area with repeat CT which has been ordered for tomorrow to reassess prevertebral and mediastinal collections/phlegmon. Continue cefazolin. * HIV: Continue anti-retroviral therapy. * Hepatitis-B: Continue entecavir. * Left upper extremity edema: Ultrasound shows partially occlusive clot. Now on prophylactic Lovenox given recent [employer] hemorrhage. 12/20/16 18:37 Subjective: Patient complains of left shoulder pain. Able to move neck better. Objective: Vital Signs Temp Pulse Resp BP Pulse Ox 37.4 C 88 18 131/78 H 96 12/20/16 15:39 12/20/16 15:59 12/20/16 15:59 12/20/16 15:39 12/20/16 15:59 Microbiology 12/14/16 15:20 Blood Culture - Final Blood 12/14/16 15:20 Blood Culture - Final Blood Laboratory Results 12/20/16 05:20 12/20/16 05:20 12/19/16 12/20/16 12/21/16 05:59 05:59 05:59 Intake Total 400 535 750 Output Total 2175 1600 1000 Balance -1775 -1065 -250 Cefazolin # 9 Blood cultures 12/14/2016 no growth - Physical Exam General Appearance: alert, no apparent distress EENT: No scleral icterus, No conjunctival petechiae Neck: other (Improved ability to move neck with lateral range of motion, no point tenderness over C spine) Cardiac/Chest: regular rate, rhythm, No systolic murmur Extremities: other (Tender over left upper shoulder musculature anteriorly; no tenderness to palpation directly over joint; some pain with range of motion) Skin: No embolic lesions ICD10 Worksheet Patient Problems: Problems Problem Status Onset Intracranial hemorrhage Acute Laceration of head Acute Lip laceration Acute Renal insufficiency Acute C. difficile diarrhea Acute 10/30/14
[2016-12-20] MEDS: DILTIAZEM CD 120 MG CAP PO SCH (21:00)
[2016-12-20] MEDS: OLANZapine 5 MG TAB PO SCH (21:01)
[2016-12-20] MEDS: ENOXAPARIN 80 MG/0.8 ML SYR SC SCH (21:02)
[2016-12-20] MEDS: TESTOSTERONE TP SCH (21:12)
[2016-12-21] MEDS: KETOROLAC 15 MG/1 ML SDV IVP SCH ×4 (00:33→17:15)
[2016-12-21] MEDS: IPRATROPIUM BROMIDE 0.5 MG/2.5 ML DEYVIAL IH SCH ×4 (05:32→21:45)
[2016-12-21] MEDS: LEVALBUTEROL 0.63 MG/3 ML DEYVIAL IH SCH ×4 (05:32→21:45)
[2016-12-21] MEDS: ceFAZolin 2 GM/DEXTROSE 100 ML IV SCH ×3 (05:54→21:17)
[2016-12-21 06:07] LABS: % IMMATURE GRANULYOCYTES 0.8 % (0.0-1.1); ABSOLUTE IMMATURE GRANULOCYTES 0.05 10^3/uL (0.00-0.10); ADD DIFF? NO; ADD MORPH? NO; ADD SCAN? NO; ATYPICAL LYMPHOCYTE FLAG 30 (0-99); FRAGMENT RBC FLAG 0 (0-99); HEMATOCRIT 32.3 % (40.0-51.0); HEMOGLOBIN 10.7 g/dL (13.7-17.5); LEFT SHIFT FLG 0 (0-99); LIPEMIA HEMOLYSIS FLAG 80 (0-99); MEAN CELL HEMOGLOBIN CONCENTR. 33.1 g/dL (32.4-36.7); MEAN CELL VOLUME 99.7 fL (81.5-99.8); MEAN PLATELET VOLUME 9.8 fL (8.7-11.7); PLATELET CLUMPS FLAG 0 (0-99); PLATELET COUNT 288 10^3/uL (150-400); RED BLOOD CELL COUNT 3.24 10^6/uL (4.40-6.38); RED CELL DISTRIBUTION WIDTH 13.4 % (11.5-15.2)
[2016-12-21 06:40] LABS: ANION GAP 5 mEq/L (8-16); CALCIUM 8.4 mg/dL (8.5-10.4); CARBON DIOXIDE 29 mEq/l (22-31); CHLORIDE 99 mEq/L (97-110); CREATININE 1.1 mg/dL (0.7-1.3); GLOMERULAR FILTRATION RATE > 60; GLUCOSE 83 mg/dL (70-100); POTASSIUM 3.9 mEq/L (3.5-5.2); SODIUM 133 mEq/L (134-144)
--- NOTE | 2016-12-21 07:50 | NEUSURGPN ---
Assessment/Plan: Assessment: 66 yo M s/p fall with frontal tSAH, neck pain. MRI C/T spine with epidural fluid collection-continued neuro intact Plan: -repeat MRI C spine w/contrast showed stable epidural abscess. -No surgical intervention indicated at this time. Continue IV abx per ID -BC x 2 (recent ones on 12/14) show no growth on final culture after 5 days -Recommend repeat MRI C-spine with and without contrast in 1 month-may be sooner per ID recommendations -Discussed with Dr. Alcala -call with any questions or concerns -follow up with Dr Alcala's team-please call for an appt in next few weeks- sooner if MRI ordered by ID -pt understands and agrees Subjective: Resting comfortable, denies any current spinal pain or new leg or arm pain, numbness, tingling or weakness Objective: NAD A&Ox3 MAEx4 08/18 and equal in BUE and BLE Catheter Insertion Date: 12/10/16 - Physician Discussed Patient with Dr.: Alcala Neurosurgery Physical Exam - Vitals, I&O, Labs I and O 12/20/16 12/21/16 12/22/16 05:59 05:59 05:59 Intake Total 535 1000 Output Total 1600 2650 Balance -1065 -1650 Weight 79 kg Intake: Oral (ml) 400 900 IV Intake (ml) 25 IV Infused (ml) 110 100 ceFAZolin 2 GM/DEXTROSE 110 100 100 ml @ 200 mls/hr IV Q8HRS [facility] Rx#:[id number] Output: Urine (ml) 1600 2650 Urinal 1600 2650 Other: Intake Quantity Yes Yes Sufficient Number of Voids Bedside Commode 1 1 Urinal 1 4 Number of Stools Bedside Commode 1 1 Vital Signs Temp Pulse Resp BP Pulse Ox 36.5 C 77 14 136/77 H 100 12/21/16 04:00 12/21/16 04:00 12/21/16 04:00 12/21/16 04:00 12/21/16 04:00 Laboratory Results 12/21/16 05:50 12/21/16 05:50 ICD10 Worksheet Patient Problems: Problems Problem Status Onset Intracranial hemorrhage Acute Laceration of head Acute Lip laceration Acute Renal insufficiency Acute C. difficile diarrhea Acute 10/30/14
[2016-12-21] MEDS: ACETAMINOPHEN 500 MG TAB PO SCH ×3 (08:47→21:17)
[2016-12-21] MEDS: DARUNAVIR ETHANOLATE 800 MG TAB PO SCH (08:48)
[2016-12-21] MEDS: DULoxetine 30 MG CAP PO SCH ×2 (08:48→21:19)
[2016-12-21] MEDS: ENOXAPARIN 80 MG/0.8 ML SYR SC SCH ×2 (08:49→21:19)
[2016-12-21] MEDS: predniSONE 20 MG TAB PO SCH (08:49)
[2016-12-21] MEDS: RALTEGRAVIR 400 MG TAB PO SCH ×2 (08:49→21:23)
[2016-12-21] MEDS: FUROSEMIDE 20 MG TAB PO SCH ×2 (08:49→14:12)
[2016-12-21] MEDS: ENTECAVIR 1 MG PO SCH (08:50)
--- NOTE | 2016-12-21 08:50 | HOSPPROG ---
Hospitalist Progress Note Assessment/Plan: 66-year-old male presents with weakness and found to have a prevertebral, epidural phlegmon. Patient has been evaluated by Neurosurgery and and no surgery is indicated at this time. Patient presented and was found initially to have subarachnoid hemorrhage and punctate intercerebral hemorrhage. At the time of presentation he was on full-dose anticoagulation for pulmonary embolus. Today the patient reports his left upper arm is much much better and pain is much reduced. - Prevertebral, retropharygeal phlegmon on and self per ID. Blood cultures are positive on a 12/10 and 12/12; BC - on 12/14. Patient continues on Ancef. -left upper arm DVT and acute swelling and pain. Per discussion with Neurosurgery we have started Toradol and full dose anticoagulation with Lovenox. -New problem: ankle swellling; x-ray was negative and no further pain today. -severe sepsis 2/2 MSSA bacteremia, POA, resolved -h/o PE, was on warfarim on admission, reversed on admission. Currently on ppx lovenox -SKI on CKD on admission, no resolved -Volume status slightly hypervolemic, will monitor status, I&O, weights -SVT continues but is not sustained. He has significant couplets PACs and PVCs but none sustained no runs. Monitor rhythms were reviewed by myself. -RAD, acute exacerbation, better on xopenox and prednisone. Will continue to taper prednisone slowly -pleural effusion, s/p thoracentesis, fluid was negative -SAH/SDH prior, traumatic - on anticoag of PPX lovenox, see above -Hepatitic B and Hepatitis C; s/p treatment -HIV positive on therapy Plan: Inpatient rehab referral or possible SNF referral. Subjective: Reports he feels much improved with consists less pain in his left arm. No shortness of breath chest pain nausea vomiting E he is eating well and has moved his bowels. Objective: Vital Signs Temp Pulse Resp BP Pulse Ox 36.5 C 77 14 136/77 H 100 12/21/16 04:00 12/21/16 04:00 12/21/16 04:00 12/21/16 04:00 12/21/16 04:00 Laboratory Results 12/21/16 05:50 12/21/16 05:50 12/20/16 12/21/16 12/22/16 05:59 05:59 05:59 Intake Total 535 1000 Output Total 1600 2650 Balance -1065 -1650 PT 17.0 SEC (12.0-15.0) H 12/18/16 04:47 INR 1.39 (0.83-1.16) H 12/18/16 04:47 Laboratory Tests 12/16/16 12/18/16 12/18/16 05:42 04:47 04:47 WBC 11.25 H 9.93 H Hgb 11.3 L INR 1.39 H Sodium 12/19/16 12/20/16 12/21/16 04:21 05:20 05:50 WBC 11.83 H 9.40 6.10 Hgb 10.7 L INR Sodium 12/21/16 05:50 WBC Hgb INR Sodium 133 L Afebrile last 24 hours with a new finding of a sodium declining to 133. - Time Spent With Patient Time Spent with Patient: greater than 35 minutes Time Spent with Patient: Greater than 35 minutes spent on this patients care, greater than 50% of time spent counseling, educating, and coordinating care regarding the above mentioned plan. - Pending Discharge Pending Discharge Within 24 Hours: No Pending Discharge Within 48 Hours: No - Physical Exam Constitutional: no apparent distress, chronically ill appearing Eyes: PERRL, anicteric sclera Ears, Nose, Mouth, Throat: moist mucous membranes, hearing normal Cardiovascular: systolic murmur, other (Irregular irregular rhythm with the monitor showing runs of SVT that her nonsustained PACs and PVCs.) Respiratory: no respiratory distress, no rales or rhonchi Gastrointestinal: normoactive bowel sounds, soft, non-tender abdomen Genitourinary: no bladder fullness Skin: warm Musculoskeletal: generalized weakness Neurologic: AAOx3 Psychiatric: interacting appropriately ICD10 Worksheet Patient Problems: Problems Problem Status Onset C. difficile diarrhea Acute 10/30/14 Laceration of head Acute Lip laceration Acute Renal insufficiency Acute Intracranial hemorrhage Acute
[2016-12-21] MEDS: SENNOSIDES/DOCUSATE SODIUM TAB PO SCH ×2 (08:51→21:19)
[2016-12-21] MEDS: Teriparatide [Forteo] 2.4 ML SQ SCH (08:53)
[2016-12-21] MEDS: RITONAVIR 100 MG TAB PO SCH (08:53)
[2016-12-21] MEDS: CEPACOL LOZENGE PO PRN (14:12)
[2016-12-21] MEDS: DIAZEPAM 5 MG TAB PO PRN ×2 (14:18→22:13)
[2016-12-21] MEDS ORDERED: IOPAMIDOL (ISOVUE-300) 100 ML BTL ONE (14:19)
--- NOTE | 2016-12-21 14:56 | PCMIDPN ---
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 CT showed small amount improve improvement of the prevertebral abscess. blood cultures cleared 12/14/2016. Range of motion of neck continues to gradually improve -- continue high-dose cefazolin, will need prolonged therapy, at leas 8 weeks. 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 twice daily x5 days -- monitor renal function # significance of right upper lobe ground-glass infiltrates unclear # left shoulder pain: Significantly improved today with supportive care, suspect musculoskeletal # HIV, on raltegravir / 3TC / boosted darunavir: CD4 367 ( 30%) viral load undetectable -- continue ARV no prophylaxis needed with current CD4 count # hepatitis-C, s/p treatment with a negative viral load # hepatitis B on chronic and entecavir medications cefazolin 2 g IV Q 8 hours, #10 CT personally reviewed by me with Radiology at bedside entire exam and history Subjective: patient is c/o sore throat not relieved by Cepacol left shoulder pain significantly improved Objective: Vital Signs Temp Pulse Resp BP Pulse Ox 37.3 C 101 H 22 H 103/74 99 12/21/16 12:00 12/21/16 12:00 12/21/16 12:00 12/21/16 12:00 12/21/16 12:00 Laboratory Results 12/21/16 05:50 12/21/16 05:50 12/20/16 12/21/16 12/22/16 05:59 05:59 05:59 Intake Total 535 1000 Output Total 1600 2650 300 Balance -3785 -1650 -300 - Physical Exam General Appearance: alert Respiratory: other ( decreased breath sounds in the bases), No accessory muscle use Neck: other ( improved mobility of his neck, still with some limited range of motion to the right) Cardiac/Chest: regular rate, rhythm ( not tachy at the time of my exam) Extremities: pedal edema Abdomen: non-tender, soft Skin: pallor, No rash Neuro/Psych: alert, normal mood/affect, oriented x 3, other ( tearful) - Time Spent With Patient Time Spent with Patient: greater than 35 minutes Time Spent with Patient: Greater than 35 minutes spent on this patients care, greater than 50% of time spent counseling, educating, and coordinating care regarding the above mentioned plan. ICD10 Worksheet Patient Problems: Problems Problem Status Onset Intracranial hemorrhage Acute Laceration of head Acute Lip laceration Acute Renal insufficiency Acute C. difficile diarrhea Acute 10/30/14
[2016-12-21] MEDS: valACYclovir 500 MG TAB PO SCH ×2 (16:29→21:17)
[2016-12-21] MEDS: POLYETHYLENE GLYCOL 3350 17 GM PKT PO PRN (21:16)
[2016-12-21] MEDS: DILTIAZEM CD 120 MG CAP PO SCH (21:18)
[2016-12-21] MEDS: OLANZapine 5 MG TAB PO SCH (21:18)
[2016-12-21] MEDS: TESTOSTERONE TP SCH (21:23)
[2016-12-22] MEDS: KETOROLAC 15 MG/1 ML SDV IVP SCH ×2 (00:14→05:15)
[2016-12-22] MEDS: ceFAZolin 2 GM/DEXTROSE 100 ML IV SCH ×3 (05:15→21:59)
[2016-12-22 05:31] LABS: % IMMATURE GRANULYOCYTES 0.6 % (0.0-1.1); ABSOLUTE IMMATURE GRANULOCYTES 0.03 10^3/uL (0.00-0.10); ADD DIFF? NO; ADD MORPH? NO; ADD SCAN? NO; ATYPICAL LYMPHOCYTE FLAG 60 (0-99); FRAGMENT RBC FLAG 0 (0-99); HEMATOCRIT 29.8 % (40.0-51.0); HEMOGLOBIN 9.9 g/dL (13.7-17.5); LEFT SHIFT FLG 0 (0-99); LIPEMIA HEMOLYSIS FLAG 80 (0-99); MEAN CELL HEMOGLOBIN 33.4 pg (27.9-34.1); MEAN CELL HEMOGLOBIN CONCENTR. 33.2 g/dL (32.4-36.7); MEAN CELL VOLUME 100.7 fL (81.5-99.8); MEAN PLATELET VOLUME 9.5 fL (8.7-11.7); PLATELET CLUMPS FLAG 0 (0-99); PLATELET COUNT 269 10^3/uL (150-400); RED BLOOD CELL COUNT 2.96 10^6/uL (4.40-6.38); RED CELL DISTRIBUTION WIDTH 13.6 % (11.5-15.2)
[2016-12-22] MEDS: IPRATROPIUM BROMIDE 0.5 MG/2.5 ML DEYVIAL IH SCH ×5 (05:55→22:40)
[2016-12-22] MEDS: LEVALBUTEROL 0.63 MG/3 ML DEYVIAL IH SCH ×5 (05:55→22:40)
[2016-12-22 06:20] LABS: ANION GAP 6 mEq/L (8-16); CALCIUM 8.1 mg/dL (8.5-10.4); CARBON DIOXIDE 26 mEq/l (22-31); CHLORIDE 104 mEq/L (97-110); CREATININE 1.2 mg/dL (0.7-1.3); GLOMERULAR FILTRATION RATE > 60; GLUCOSE 81 mg/dL (70-100); POTASSIUM 4.2 mEq/L (3.5-5.2); SODIUM 136 mEq/L (134-144)
[2016-12-22] MEDS ORDERED: fentaNYL 12 MCG PATCH TD SCH (11:30)
[2016-12-22] MEDS: ACETAMINOPHEN 500 MG TAB PO SCH ×3 (11:51→22:00)
[2016-12-22] MEDS: RALTEGRAVIR 400 MG TAB PO SCH ×2 (11:52→20:30)
[2016-12-22] MEDS: ENTECAVIR 1 MG PO SCH (11:52)
[2016-12-22] MEDS: DARUNAVIR ETHANOLATE 800 MG TAB PO SCH (11:52)
[2016-12-22] MEDS: RITONAVIR 100 MG TAB PO SCH (11:53)
[2016-12-22] MEDS: ENOXAPARIN 80 MG/0.8 ML SYR SC SCH ×2 (11:53→20:30)
[2016-12-22] MEDS: predniSONE 20 MG TAB PO SCH (11:55)
[2016-12-22] MEDS: FUROSEMIDE 20 MG TAB PO SCH ×2 (11:56→15:09)
[2016-12-22] MEDS: Teriparatide [Forteo] 2.4 ML SQ SCH (12:10)
[2016-12-22] MEDS: SENNOSIDES/DOCUSATE SODIUM TAB PO SCH ×2 (12:28→20:30)
[2016-12-22] MEDS: DIAZEPAM 5 MG TAB PO PRN ×2 (12:28→22:03)
[2016-12-22] MEDS: oxyCODONE IR 5 MG TAB PO PRN (12:29)
[2016-12-22] MEDS: DULoxetine 30 MG CAP PO SCH ×2 (12:29→20:30)
[2016-12-22] MEDS: CEPACOL LOZENGE PO PRN (12:30)
[2016-12-22] MEDS: valACYclovir 500 MG TAB PO SCH ×2 (13:47→20:30)
--- NOTE | 2016-12-22 15:20 | PCMIDPN ---
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 CT showed small amount improve improvement of the prevertebral abscess. blood cultures cleared 12/14/2016. Range of motion of neck stable today -- continue high-dose cefazolin, will need prolonged therapy, at least 8 weeks. 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 twice yesterday empirically, stop if hsv neg # L knee pain and mild warmth on exam, no swelling or erythema - monitor # left shoulder pain: Significantly improved today with supportive care, suspect musculoskeletal # HIV, on raltegravir / 3TC / boosted darunavir: CD4 367 ( 30%) viral load undetectable -- continue ARV no prophylaxis needed with current CD4 count # hepatitis-C, s/p treatment with a negative viral load # hepatitis B on chronic and entecavir medications cefazolin 2 g IV Q 8 hours, #11 valtrex 1gm PO BID #04/20 Subjective: patient describes less energy today Epistaxis overnight L knee pain with ambulation Objective: Vital Signs Temp Pulse Resp BP Pulse Ox 36.9 C 98 20 121/76 H 93 12/22/16 09:48 12/22/16 11:06 12/22/16 11:06 12/22/16 09:48 12/22/16 11:06 Laboratory Results 12/22/16 05:20 12/22/16 05:20 12/21/16 12/22/16 12/23/16 05:59 05:59 05:59 Intake Total 1000 561 Output Total 2650 700 500 Balance -1650 -139 -500 - Physical Exam General Appearance: alert, no apparent distress EENT: pale conjunctiva, other (scattered ulcers uvula, L post pharnyx), No thrush Neck: other (discomfort with turning to R, stable) Cardiac/Chest: regular rate, rhythm Extremities: other (L knee with mild warmth, no swelling or erythema.), No pedal edema Abdomen: non-tender, soft Male Genitalia: No rose Skin: No rash - Line/s RUE PICC Lines: No drainage, No erythema - Time Spent With Patient Time Spent with Patient: greater than 35 minutes Time Spent with Patient: Greater than 35 minutes spent on this patients care, greater than 50% of time spent counseling, educating, and coordinating care regarding the above mentioned plan. ICD10 Worksheet Patient Problems: Problems Problem Status Onset Intracranial hemorrhage Acute Laceration of head Acute Lip laceration Acute Renal insufficiency Acute C. difficile diarrhea Acute 10/30/14
--- NOTE | 2016-12-22 16:22 | HOSPPROG ---
Hospitalist Progress Note Assessment/Plan: 66-year-old male presents with weakness and found to have a prevertebral, epidural phlegmon. Patient has been evaluated by Neurosurgery and and no surgery is indicated at this time. Patient presented and was found initially to have subarachnoid hemorrhage and punctate intercerebral hemorrhage. At the time of presentation he was on full-dose anticoagulation for pulmonary embolus. anticoagulation was stopped but now has been restarted at full dose with the permission of Neurosurgery. Today the patient reports his left upper arm is much much better and pain is much reduced. - Prevertebral, retropharygeal Prevertebral phlegmon on and self per ID. Blood cultures are positive on a 12/10 and 12/12; BC - on 12/14. Patient continues on high-dose Ancef and will need Ancef for at least 8 weeks. Day # 8. tentative stop date is 02/08/2017 Blood cultures cleared on 12/13/2016. last CT scan showed a small amount of improvement of the prevertebral abscess. 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 twice yesterday empirically, stop if hsv neg -HIV, on raltegravir / 3TC / boosted darunavir: CD4 367 ( 30%) viral load undetectable -- continue ARV no prophylaxis needed with current CD4 count -hepatitis-C, s/p treatment with a negative viral load -hepatitis B on chronic and entecavir -left upper arm DVT and acute swelling and pain. Per discussion with Neurosurgery we have started Toradol and full dose anticoagulation with Lovenox. -severe sepsis 2/2 MSSA bacteremia, POA, resolved -h/o PE, was on warfarim on admission, Now on full dose lovenox for prior PE and recent DVT of left upper arm. -SVT continues but is not sustained. He has significant couplets PACs and PVCs but none sustained no runs. Monitor rhythms were reviewed by myself. -RAD, acute exacerbation, better on xopenox and prednisone. Will continue to taper prednisone slowly -pleural effusion, s/p thoracentesis, fluid was negative -SAH/SDH prior, traumatic - note that he is now on full dose lovenox with permission of neurosurgery Plan: Inpatient rehab referral or possible SNF referral. Case discussed with Dr. Marielos Reilly and case management. Subjective: Reports he is feeling improved. The arms are less edematous and the left arm pain is nearly fully resolved. No complaints of chest pain shortness of breath or abdominal pain. Objective: Vital Signs Temp Pulse Resp BP Pulse Ox 36.4 C 90 20 130/80 H 96 12/22/16 15:21 12/22/16 15:21 12/22/16 15:21 12/22/16 15:21 12/22/16 15:21 Laboratory Results 12/22/16 05:20 12/22/16 05:20 12/21/16 12/22/16 12/23/16 05:59 05:59 05:59 Intake Total 1000 561 Output Total 2650 700 1100 Balance -1650 -139 -1100 PT 17.0 SEC (12.0-15.0) H 12/18/16 04:47 INR 1.39 (0.83-1.16) H 12/18/16 04:47 - Time Spent With Patient Time Spent with Patient: greater than 35 minutes Time Spent with Patient: Greater than 35 minutes spent on this patients care, greater than 50% of time spent counseling, educating, and coordinating care regarding the above mentioned plan. - Pending Discharge Pending Discharge Within 24 Hours: No Pending Discharge Within 48 Hours: Yes Pending Discharge Date: 12/24/16 Pending Discharge Time: 11:00 - Physical Exam Constitutional: no apparent distress, chronically ill appearing Eyes: PERRL, anicteric sclera Ears, Nose, Mouth, Throat: moist mucous membranes, hearing normal Cardiovascular: regular rate and rhythym, systolic murmur Respiratory: no respiratory distress, no rales or rhonchi, clear to auscultation Gastrointestinal: normoactive bowel sounds, soft, non-tender abdomen, no palpable masses Genitourinary: no bladder fullness Skin: warm Musculoskeletal: other ( Left arm shows some persistent edema or on the volar aspect of the forearm but is nontender to palpation and has full active and passive range of motion. No palpable cord) Neurologic: AAOx3, CN II-XII Intact Psychiatric: interacting appropriately ICD10 Worksheet Patient Problems: Problems Problem Status Onset C. difficile diarrhea Acute 10/30/14 Laceration of head Acute Lip laceration Acute Renal insufficiency Acute Intracranial hemorrhage Acute
[2016-12-22] MEDS: POLYETHYLENE GLYCOL 3350 17 GM PKT PO PRN (16:53)
[2016-12-22] MEDS: OLANZapine 5 MG TAB PO SCH (20:30)
[2016-12-22] MEDS: DILTIAZEM CD 120 MG CAP PO SCH (20:30)
[2016-12-22] MEDS: TESTOSTERONE TP SCH (20:37)
[2016-12-22] MEDS ORDERED: POLYETHYLENE GLYCOL 3350 17 GM PKT PO ONE (23:00)
[2016-12-22 23:40] LABS: SPECIMEN SOURCE THROAT
[2016-12-23] MEDS: ceFAZolin 2 GM/DEXTROSE 100 ML IV SCH ×3 (05:12→22:09)
[2016-12-23 05:32] LABS: % IMMATURE GRANULYOCYTES 0.3 % (0.0-1.1); ABSOLUTE IMMATURE GRANULOCYTES 0.02 10^3/uL (0.00-0.10); ADD DIFF? NO; ADD MORPH? NO; ADD SCAN? NO; ATYPICAL LYMPHOCYTE FLAG 30 (0-99); FRAGMENT RBC FLAG 30 (0-99); HEMATOCRIT 30.7 % (40.0-51.0); HEMOGLOBIN 10.1 g/dL (13.7-17.5); LEFT SHIFT FLG 0 (0-99); LIPEMIA HEMOLYSIS FLAG 80 (0-99); MEAN CELL HEMOGLOBIN 33.2 pg (27.9-34.1); MEAN CELL HEMOGLOBIN CONCENTR. 32.9 g/dL (32.4-36.7); MEAN PLATELET VOLUME 9.4 fL (8.7-11.7); PLATELET CLUMPS FLAG 10 (0-99); PLATELET COUNT 298 10^3/uL (150-400); RED BLOOD CELL COUNT 3.04 10^6/uL (4.40-6.38); RED CELL DISTRIBUTION WIDTH 13.4 % (11.5-15.2)
[2016-12-23 05:40] LABS: ALANINE AMINOTRANSFERASE 39 IU/L (21-72); ALBUMIN 2.7 g/dL (3.5-5.0); ALKALINE PHOSPHATASE 105 IU/L (38-126); ANION GAP 7 mEq/L (8-16); ASPARTATE AMINOTRANSFERASE 68 IU/L (17-59); CALCIUM 8.4 mg/dL (8.5-10.4); CARBON DIOXIDE 26 mEq/l (22-31); CHLORIDE 103 mEq/L (97-110); CREATININE 1.1 mg/dL (0.7-1.3); GLOMERULAR FILTRATION RATE > 60; GLUCOSE 81 mg/dL (70-100); POTASSIUM 4.3 mEq/L (3.5-5.2); SODIUM 136 mEq/L (134-144); TOTAL PROTEIN 6.5 g/dL (6.3-8.2)
[2016-12-23 05:49] LABS: % SATURATION 17 % (20-55); TOTAL IRON BINDING CAPACITY 235 ug/dL (260-490)
[2016-12-23] MEDS: IPRATROPIUM BROMIDE 0.5 MG/2.5 ML DEYVIAL IH SCH ×4 (06:17→22:11)
[2016-12-23] MEDS: LEVALBUTEROL 0.63 MG/3 ML DEYVIAL IH SCH ×4 (06:18→22:11)
[2016-12-23] MEDS: ENOXAPARIN 80 MG/0.8 ML SYR SC SCH ×2 (08:43→20:14)
[2016-12-23] MEDS: SENNOSIDES/DOCUSATE SODIUM TAB PO SCH ×2 (08:45→20:16)
[2016-12-23] MEDS: DULoxetine 30 MG CAP PO SCH ×2 (08:48→20:15)
[2016-12-23] MEDS: RITONAVIR 100 MG TAB PO SCH (08:48)
[2016-12-23] MEDS: predniSONE 20 MG TAB PO SCH (08:48)
[2016-12-23] MEDS: FUROSEMIDE 20 MG TAB PO SCH ×2 (08:48→16:20)
[2016-12-23] MEDS: valACYclovir 500 MG TAB PO SCH ×2 (08:48→20:16)
[2016-12-23] MEDS: DARUNAVIR ETHANOLATE 800 MG TAB PO SCH (08:49)
[2016-12-23] MEDS: RALTEGRAVIR 400 MG TAB PO SCH ×2 (08:49→20:15)
[2016-12-23] MEDS: Teriparatide [Forteo] 2.4 ML SQ SCH (11:14)
[2016-12-23] MEDS: ENTECAVIR 1 MG PO SCH (11:16)
[2016-12-23] MEDS ORDERED: ACETAMINOPHEN 500 MG TAB ONE (11:35)
[2016-12-23] MEDS: ACETAMINOPHEN 500 MG TAB PO SCH (11:37)
--- NOTE | 2016-12-23 15:08 | HOSPPROG ---
Hospitalist Progress Note Assessment/Plan: 66-year-old HIV positive man followed at [facility] is admitted with neck pain and found to have multiple abscesses due to MSSA. Neurosurgery did evaluate the patient and felt no surgery indicated at this time for prevertebral abscess and epidural abscess. Patient is nervous about leaving the hospital due to weakness. He also complains of some shortness of breath is unclear how long this has been present. 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 CT showed small amount improve improvement of the prevertebral abscess. blood cultures cleared 12/14/2016. * continue high-dose cefazolin, will need prolonged therapy, at least 8 weeks. 02/08/17 tentative stop date * Discussed with ID * Will consider follow-up imaging and defer to ID. 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 Feels weak and is nervous about leaving the hospital because he does need some help getting to the bathroom. No specific complaints he feels his neck is getting slightly better still has some pain. Objective: Vital Signs Temp Pulse Resp BP Pulse Ox 37.1 C 99 20 122/67 H 99 12/23/16 12:00 12/23/16 12:00 12/23/16 12:00 12/23/16 12:00 12/23/16 12:00 Laboratory Results 12/23/16 05:15 12/23/16 05:15 12/22/16 12/23/16 12/24/16 05:59 05:59 05:59 Intake Total 561 850 Output Total 700 1650 Balance -139 -800 PT 17.0 SEC (12.0-15.0) H 12/18/16 04:47 INR 1.39 (0.83-1.16) H 12/18/16 04:47 - Physical Exam Constitutional: chronically ill appearing, uncomfortable Eyes: PERRL, EOMI Ears, Nose, Mouth, Throat: moist mucous membranes, hearing normal Cardiovascular: regular rate and rhythym Respiratory: no respiratory distress, reduced air movement Gastrointestinal: normoactive bowel sounds, soft, non-tender abdomen Skin: warm, normal color Musculoskeletal: no joint effusions, No normal joint ROM (Slightly decreased flexion left knee) Neurologic: AAOx3, No facial droop Psychiatric: interacting appropriately, anxious ICD10 Worksheet Patient Problems: Problems Problem Status Onset Intracranial hemorrhage Acute Laceration of head Acute Lip laceration Acute Renal insufficiency Acute C. difficile diarrhea Acute 10/30/14
--- NOTE | 2016-12-23 15:22 | PCMIDPN ---
Assessment/Plan: Assessment/Plan: 1. MSSa bacteremia/sepsis with Cervical epidural collection and retropharngyeal phlegmon - f/u blood cx from 12/14/16 ngtd -Currently on Ancef therapy -Recent images reviewed -Appreciate NSG eval - Ct chest from 12/21 reviewed. Will d/w with radiology. pt will likely need additional imaging at some point. . 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 Meds Ancef 2g q8- 12/11/16. ---#10 from negative cultures. Subjective: Afebrile. Anxiety with some dyspnea. Denies sorethroat now, or difficulty swallowing. Denies pain in neck and chest. Objective: Vital Signs Temp Pulse Resp BP Pulse Ox 37.1 C 99 20 122/67 H 99 12/23/16 12:00 12/23/16 12:00 12/23/16 12:00 12/23/16 12:00 12/23/16 12:00 Laboratory Results 12/23/16 05:15 12/23/16 05:15 12/22/16 12/23/16 12/24/16 05:59 05:59 05:59 Intake Total 561 850 Output Total 700 1650 Balance -139 -800 - Physical Exam General Appearance: alert EENT: other (posterior pharyneal ulcers noted.) Respiratory: coarse breath sounds (at bases) Cardiac/Chest: regular rate, rhythm Extremities: other (no swelling) Abdomen: normal bowel sounds, non-tender, soft Skin: other (no rash) ICD10 Worksheet Patient Problems: Problems Problem Status Onset Intracranial hemorrhage Acute Laceration of head Acute Lip laceration Acute Renal insufficiency Acute C. difficile diarrhea Acute 10/30/14
[2016-12-23] MEDS: ACETAMINOPHEN 325 MG TAB PO SCH ×2 (18:15→22:08)
[2016-12-23] MEDS: DILTIAZEM CD 120 MG CAP PO SCH (20:15)
[2016-12-23] MEDS: OLANZapine 5 MG TAB PO SCH (20:15)
[2016-12-23] MEDS: DIAZEPAM 5 MG TAB PO PRN (20:16)
[2016-12-23] MEDS: TESTOSTERONE TP SCH (22:08)
[2016-12-23] MEDS: POLYETHYLENE GLYCOL 3350 17 GM PKT PO PRN (22:08)
[2016-12-24 04:28] LABS: % IMMATURE GRANULYOCYTES 0.5 % (0.0-1.1); ABSOLUTE IMMATURE GRANULOCYTES 0.03 10^3/uL (0.00-0.10); ADD DIFF? NO; ADD MORPH? NO; ADD SCAN? NO; ATYPICAL LYMPHOCYTE FLAG 20 (0-99); FRAGMENT RBC FLAG 0 (0-99); HEMATOCRIT 31.3 % (40.0-51.0); HEMOGLOBIN 10.2 g/dL (13.7-17.5); LEFT SHIFT FLG 0 (0-99); LIPEMIA HEMOLYSIS FLAG 80 (0-99); MEAN CELL HEMOGLOBIN 32.9 pg (27.9-34.1); MEAN CELL HEMOGLOBIN CONCENTR. 32.6 g/dL (32.4-36.7); MEAN PLATELET VOLUME 9.4 fL (8.7-11.7); PLATELET CLUMPS FLAG 0 (0-99); PLATELET COUNT 314 10^3/uL (150-400); RED CELL DISTRIBUTION WIDTH 13.5 % (11.5-15.2)
[2016-12-24 04:57] LABS: ANION GAP 10 mEq/L (8-16); CALCIUM 8.5 mg/dL (8.5-10.4); CARBON DIOXIDE 25 mEq/l (22-31); CHLORIDE 102 mEq/L (97-110); CREATININE 1.1 mg/dL (0.7-1.3); GLOMERULAR FILTRATION RATE > 60; GLUCOSE 81 mg/dL (70-100); POTASSIUM 4.4 mEq/L (3.5-5.2); SODIUM 137 mEq/L (134-144)
[2016-12-24] MEDS: ceFAZolin 2 GM/DEXTROSE 100 ML IV SCH ×3 (06:01→21:18)
[2016-12-24] MEDS: IPRATROPIUM BROMIDE 0.5 MG/2.5 ML DEYVIAL IH SCH ×4 (06:15→23:43)
[2016-12-24] MEDS: LEVALBUTEROL 0.63 MG/3 ML DEYVIAL IH SCH ×4 (06:15→23:43)
[2016-12-24] MEDS: RALTEGRAVIR 400 MG TAB PO SCH ×2 (08:58→21:12)
[2016-12-24] MEDS: RITONAVIR 100 MG TAB PO SCH ×2 (08:58→08:59)
[2016-12-24] MEDS: valACYclovir 500 MG TAB PO SCH ×2 (08:58→21:12)
[2016-12-24] MEDS: DARUNAVIR ETHANOLATE 800 MG TAB PO SCH (08:58)
[2016-12-24] MEDS: ENOXAPARIN 80 MG/0.8 ML SYR SC SCH ×2 (08:59→21:23)
[2016-12-24] MEDS: DULoxetine 30 MG CAP PO SCH ×2 (08:59→21:12)
[2016-12-24] MEDS: ACETAMINOPHEN 325 MG TAB PO SCH ×3 (08:59→21:10)
[2016-12-24] MEDS: FUROSEMIDE 20 MG TAB PO SCH ×2 (08:59→15:46)
[2016-12-24] MEDS: predniSONE 20 MG TAB PO SCH (08:59)
[2016-12-24] MEDS: SENNOSIDES/DOCUSATE SODIUM TAB PO SCH ×2 (09:00→21:12)
[2016-12-24] MEDS: DIAZEPAM 5 MG TAB PO PRN ×2 (09:06→21:13)
[2016-12-24] MEDS: Teriparatide [Forteo] 2.4 ML SQ SCH (09:16)
--- NOTE | 2016-12-24 11:08 | HOSPPROG ---
Hospitalist Progress Note Assessment/Plan: 66-year-old HIV positive man followed at [facility] is admitted with neck pain and found to have multiple abscesses due to MSSA. Neurosurgery did evaluate the patient and felt no surgery indicated at this time for prevertebral abscess and epidural abscess. Today his main complaints are worsening pain in his back between the shoulder blades. Yesterday was at a 3 today it is at a 6. he denies any knee pain or shoulder pain. He also has pain in his right big toe when walking. 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 CT showed small amount improve improvement of the prevertebral abscess. blood cultures cleared 12/14/2016. * continue high-dose cefazolin, will need prolonged therapy, at least 8 weeks. 02/08/17 tentative stop date * Will discuss with ID regarding imaging in light of his worsening pain in his back. * increase fentanyl patch in monitor mental status, denies any problems with medication currently # hx DVT associated with PICC, hx of previous PE on prison warfarin * If next imaging is ok, can resume warfarin and stop lovenox when therapeutic # Traumatic SAH/SDH on admission and evaluated by NS. OK for full dose anticoagulation per NS. # RAD: treated with xopenex and prednisone, no current symptoms or wheezing on exam. 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 We will check x-ray to rule out fracture, no evidence of infection this time. # L knee pain overall good range of motion, no erythema or swelling noted # HIV, on raltegravir / 3TC / boosted darunavir: CD4 367 ( 30%) viral load undetectable -- continue ARV no prophylaxis needed with current CD4 count # hepatitis-C, s/p treatment with a negative viral load # hepatitis B on chronic and entecavir Subjective: Complaining of worsening pain in his mid back between his scapula. This is similar to the pain on admission. Much worse yesterday. Also pain in his big toe Objective: Vital Signs Temp Pulse Resp BP Pulse Ox 36.6 C 52 L 20 140/77 H 95 12/24/16 08:00 12/24/16 08:00 12/24/16 08:00 12/24/16 08:00 12/24/16 08:00 Laboratory Results 12/24/16 04:15 12/24/16 04:15 12/23/16 12/24/16 12/25/16 05:59 05:59 05:59 Intake Total 850 Output Total 1650 800 550 Balance -800 -800 -550 PT 17.0 SEC (12.0-15.0) H 12/18/16 04:47 INR 1.39 (0.83-1.16) H 12/18/16 04:47 - Physical Exam Constitutional: chronically ill appearing, uncomfortable Eyes: PERRL, EOMI Ears, Nose, Mouth, Throat: moist mucous membranes Cardiovascular: regular rate and rhythym, no murmur, rub, or gallop Respiratory: no respiratory distress, no rales or rhonchi, clear to auscultation Gastrointestinal: normoactive bowel sounds, soft, non-tender abdomen Genitourinary: no bladder fullness Skin: warm, other ( the commode cyst on right big toe dorsal aspect) Neurologic: AAOx3 Psychiatric: interacting appropriately, anxious ICD10 Worksheet Patient Problems: Problems Problem Status Onset Intracranial hemorrhage Acute Laceration of head Acute Lip laceration Acute Renal insufficiency Acute C. difficile diarrhea Acute 10/30/14
[2016-12-24] MEDS ORDERED: fentaNYL 25 MCG PATCH TD SCH (11:15)
[2016-12-24] MEDS: ENTECAVIR 1 MG PO SCH (12:00)
--- NOTE | 2016-12-24 12:58 | PCMIDPN ---
Assessment/Plan: Assessment/Plan: 1. MSSa bacteremia/sepsis with Cervical epidural collection and retropharngyeal phlegmon - f/u blood cx from 12/14/16 ngtd -Currently on Ancef therapy -Recent images reviewed -Appreciate NSG eval - Ct chest from 12/21 reviewed with radiology. phlegmon dimensions corrected. -may benefit with MRI lower neck/upper chest to visualize all aspects of involvment better. possible in 7-10 days if remains stable, sooner if pain worsens, feverrs, wbc increases etc. 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 Meds Ancef 2g q8- 12/11/16. ---#11 from negative cultures. Subjective: afebrile. having more pain in back today. c/o pain involving right great toe. Objective: Vital Signs Temp Pulse Resp BP Pulse Ox 36.6 C 52 L 20 140/77 H 95 12/24/16 08:00 12/24/16 08:00 12/24/16 08:00 12/24/16 08:00 12/24/16 08:00 Laboratory Results 12/24/16 04:15 12/24/16 04:15 12/23/16 12/24/16 12/25/16 05:59 05:59 05:59 Intake Total 850 Output Total 1650 800 550 Balance -800 -800 -550 - Physical Exam General Appearance: alert, no apparent distress Respiratory: lungs clear (anteriorly) Cardiac/Chest: regular rate, rhythm Extremities: No swelling Abdomen: normal bowel sounds, non-tender, soft, No distended ICD10 Worksheet Patient Problems: Problems Problem Status Onset Intracranial hemorrhage Acute Laceration of head Acute Lip laceration Acute Renal insufficiency Acute C. difficile diarrhea Acute 10/30/14
--- NOTE | 2016-12-24 17:04 | ASMTCMCOM ---
CM Note CM Note Notes: Today Mini from Inpatient Rehab spoke with Pt. and in room. Pt. states he used to work at [employer] [facility] [facility] Inpt Rehab and due to past circumstances prefers NOT to go there. is researching [facility] at this time per Mini. Faxes already sent via [employer]. SWer left message for Karen to coordinate d/c POC preferences. CM to follow. Date Signed: 12/20/2016 02:03 PM Electronically Signed By:Arlene Ndiaye
--- NOTE | 2016-12-24 17:06 | ASMTCMCOM ---
CM Note CM Note Notes: Spoke w/pt this AM, has chosen [facility] for rehab when ready to discharge. CM notified [facility] and sent updated notes. Date Signed: 12/22/2016 10:58 AM Electronically Signed By:Krystina Zaidi
--- NOTE | 2016-12-24 17:09 | ASMTCMCOM ---
CM Note CM Note Notes: Spoke with pt regarding the HIV/Hep B meds he will need to take w/him to [facility]. He couldn't remember which ones they were so hospitalist identified them on med list. Pt provided with list and will ask his daughter to bring the listed meds in tonight when she brings clothes for him to go to SNF with. Pt is asking CM to call Ctr at to ask if any of the listed meds are in their formulary as they're very expensive and he'd rather use their meds (with insurance possibly paying?) than his own. Pt may d/c Sunday after imaging. Date Signed: 12/24/2016 03:45 PM Electronically Signed By:Arlene Esposito
[2016-12-24] MEDS: POLYETHYLENE GLYCOL 3350 17 GM PKT PO PRN (21:09)
[2016-12-24] MEDS: OLANZapine 5 MG TAB PO SCH (21:12)
[2016-12-24] MEDS: DILTIAZEM CD 120 MG CAP PO SCH (21:13)
[2016-12-24] MEDS: TESTOSTERONE TP SCH (22:23)
[2016-12-25] MEDS: ceFAZolin 2 GM/DEXTROSE 100 ML IV SCH ×3 (05:30→21:06)
[2016-12-25] MEDS: IPRATROPIUM BROMIDE 0.5 MG/2.5 ML DEYVIAL IH SCH ×4 (06:01→21:02)
[2016-12-25] MEDS: LEVALBUTEROL 0.63 MG/3 ML DEYVIAL IH SCH ×4 (06:01→21:02)
[2016-12-25] MEDS: POLYETHYLENE GLYCOL 3350 17 GM PKT PO PRN ×2 (09:04→20:17)
[2016-12-25] MEDS: valACYclovir 500 MG TAB PO SCH ×2 (09:06→20:18)
[2016-12-25] MEDS: RITONAVIR 100 MG TAB PO SCH (09:07)
[2016-12-25] MEDS: DARUNAVIR ETHANOLATE 800 MG TAB PO SCH (09:07)
[2016-12-25] MEDS: SENNOSIDES/DOCUSATE SODIUM TAB PO SCH ×2 (09:10→20:18)
[2016-12-25] MEDS: ACETAMINOPHEN 325 MG TAB PO SCH ×3 (09:10→23:28)
[2016-12-25] MEDS: RALTEGRAVIR 400 MG TAB PO SCH ×2 (09:12→20:18)
[2016-12-25] MEDS: predniSONE 20 MG TAB PO SCH (09:12)
[2016-12-25] MEDS: DULoxetine 30 MG CAP PO SCH ×2 (09:13→20:18)
[2016-12-25] MEDS: ENOXAPARIN 80 MG/0.8 ML SYR SC SCH ×2 (09:14→20:15)
[2016-12-25] MEDS: Teriparatide [Forteo] 2.4 ML SQ SCH (09:19)
[2016-12-25] MEDS: DIAZEPAM 5 MG TAB PO PRN (09:30)
[2016-12-25] MEDS: FUROSEMIDE 20 MG TAB PO SCH ×2 (10:50→16:24)
[2016-12-25] MEDS: ENTECAVIR 1 MG PO SCH (12:38)
[2016-12-25] MEDS: METOPROLOL TARTRATE 25 MG TAB PO SCH ×2 (12:39→20:18)
--- NOTE | 2016-12-25 14:10 | PCMIDPN ---
Assessment/Plan: Assessment: sepsis secondary to cervical prevertebral and epidural abscess/phlegmon. MSSA in the patient's blood appears to have cleared as of 12/14. I remain concerned that we will not be able to ultimately control the infection without surgical source control however given the toxicity of the procedure needed it is reasonable to try antibiotics alone for 8 weeks from clearance. Patient is markedly clinically improved from last week. Favor repeat MRI in 3-4 days making at 7 days from his last MRI. Plan: 1. Continue IV cefazolin. 2. Repeat blood cultures today. 3. Follow clinical course. Subjective: Patient is resting in his hospital bed. He complains of generalized weakness. No fevers or chills. Appears to be tolerating the cefazolin without complaint. Objective: Cefazolin # / Vital Signs Temp Pulse Resp BP Pulse Ox 36.9 C 85 20 122/86 H 95 12/25/16 11:52 12/25/16 12:13 12/25/16 12:13 12/25/16 11:52 12/25/16 12:13 Laboratory Results 12/24/16 04:15 12/24/16 04:15 12/24/16 12/25/16 12/26/16 05:59 05:59 05:59 Intake Total 275 700 Output Total 800 1650 1051 [employer] [facility] -800 -1375 -351 - Physical Exam General Appearance: WD/WN, alert, no apparent distress, thin, non-toxic Respiratory: lungs clear, normal breath sounds, No respiratory distress Cardiac/Chest: regular rate, rhythm, No tachycardia Extremities: non-tender, normal inspection Skin: normal color, warm/dry, No rash Neuro/Psych: alert, normal mood/affect, oriented x 3 ICD10 Worksheet Patient Problems: Problems Problem Status Onset Intracranial hemorrhage Acute Laceration of head Acute Lip laceration Acute Renal insufficiency Acute C. difficile diarrhea Acute 10/30/14
--- NOTE | 2016-12-25 16:30 | HOSPPROG ---
Hospitalist Progress Note Assessment/Plan: 66-year-old HIV positive man followed at [facility] is admitted with neck pain and found to have multiple abscesses due to MSSA. Neurosurgery did evaluate the patient and felt no surgery indicated at this time for prevertebral abscess and epidural abscess. Today his main complaints are worsening pain in his back between the shoulder blades. Yesterday was at a 3 today it is at a 6. he denies any knee pain or shoulder pain. He also has pain in his right big toe when walking. 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 CT showed small amount improve improvement of the prevertebral abscess. blood cultures cleared 12/14/2016. * continue high-dose cefazolin, will need prolonged therapy, at least 8 weeks. 02/08/17 tentative stop date * Will discuss with ID regarding imaging in light of his worsening pain in his back. * increase fentanyl patch in monitor mental status, denies any problems with medication currently # hx DVT associated with PICC, hx of previous PE on care home warfarin * will start coumadin today. # Traumatic SAH/SDH on admission and evaluated by NS. OK for full dose anticoagulation per NS. # RAD: treated with xopenex and prednisone, no current symptoms or wheezing on exam. will wean off prednisone. 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 We will check x-ray to rule out fracture, no evidence of infection this time. # L knee pain overall good range of motion, no erythema or swelling noted # HIV, on raltegravir / 3TC / boosted darunavir: CD4 367 ( 30%) viral load undetectable -- continue ARV no prophylaxis needed with current CD4 count # hepatitis-C, s/p treatment with a negative viral load # hepatitis B on chronic and entecavir Subjective: no new complaints today Objective: Vital Signs Temp Pulse Resp BP Pulse Ox 36.9 C 85 20 122/86 H 95 12/25/16 11:52 12/25/16 12:13 12/25/16 12:13 12/25/16 11:52 12/25/16 12:13 Laboratory Results 12/24/16 04:15 12/24/16 04:15 12/24/16 12/25/16 12/26/16 05:59 05:59 05:59 Intake Total 275 835 Output Total 800 1651 1351 Balance -800 -7315 -516 PT 17.0 SEC (12.0-15.0) H 12/18/16 04:47 INR 1.39 (0.83-1.16) H 12/18/16 04:47 - Time Spent With Patient Time Spent with Patient: greater than 35 minutes (coordination of care) Time Spent with Patient: Greater than 35 minutes spent on this patients care, greater than 50% of time spent counseling, educating, and coordinating care regarding the above mentioned plan. - Physical Exam Constitutional: no apparent distress, chronically ill appearing Eyes: PERRL Ears, Nose, Mouth, Throat: moist mucous membranes Cardiovascular: regular rate and rhythym Respiratory: no respiratory distress, no rales or rhonchi, clear to auscultation Gastrointestinal: normoactive bowel sounds Neurologic: AAOx3 Psychiatric: interacting appropriately ICD10 Worksheet Patient Problems: Problems Problem Status Onset C. difficile diarrhea Acute 10/30/14 Laceration of head Acute Lip laceration Acute Renal insufficiency Acute Intracranial hemorrhage Acute
--- NOTE | 2016-12-25 16:57 | ASMTCMCOM ---
CM Note CM Note Notes: Patient was originally to d/c today. However, [facility] has to order a K Pad ( continuous heat by warmed water) for patient to manage his pain and ability to sleep through the night. [facility]y has ordered this evening and it should arrive tomorrow. Patient also needs to return in 1 week for an MRI. Mendy states they can bring him for his appointment but it needs to be already scheduled. Lesly, patient's nurse, is working on the MRI appointment and will give me the information when she has it. Patient was informed he will d/c tomorrow when the final details are in place. Patient was relieved. Transportation will be set up tomorrow. CM to follow. Date Signed: 12/25/2016 04:56 PM Electronically Signed By:Quita Oquendo
[2016-12-25] MEDS: OLANZapine 5 MG TAB PO SCH (20:18)
[2016-12-25] MEDS: TESTOSTERONE TP SCH (20:20)
[2016-12-26] MEDS: IPRATROPIUM BROMIDE 0.5 MG/2.5 ML DEYVIAL IH SCH ×2 (04:58→12:45)
[2016-12-26] MEDS: LEVALBUTEROL 0.63 MG/3 ML DEYVIAL IH SCH ×2 (04:59→12:45)
[2016-12-26] MEDS: ceFAZolin 2 GM/DEXTROSE 100 ML IV SCH (06:10)
[2016-12-26] MEDS ORDERED: predniSONE 10 MG TAB PO SCH (09:00)
[2016-12-26] MEDS: METOPROLOL TARTRATE 25 MG TAB PO SCH (09:01)
[2016-12-26] MEDS: SENNOSIDES/DOCUSATE SODIUM TAB PO SCH (09:01)
[2016-12-26] MEDS: valACYclovir 500 MG TAB PO SCH (09:03)
[2016-12-26] MEDS: DULoxetine 30 MG CAP PO SCH (09:03)
[2016-12-26] MEDS: ACETAMINOPHEN 325 MG TAB PO SCH (09:04)
[2016-12-26] MEDS: RALTEGRAVIR 400 MG TAB PO SCH (09:06)
[2016-12-26] MEDS: RITONAVIR 100 MG TAB PO SCH (09:06)
[2016-12-26] MEDS: ENOXAPARIN 80 MG/0.8 ML SYR SC SCH (09:07)
[2016-12-26] MEDS: DIAZEPAM 5 MG TAB PO PRN (09:13)
[2016-12-26] MEDS: DARUNAVIR ETHANOLATE 800 MG TAB PO SCH (09:18)
--- NOTE | 2016-12-26 10:30 | PCMIDPN ---
Assessment/Plan: Assessment/Plan: 1. MSSa bacteremia/sepsis with Cervical epidural collection and retropharngyeal phlegmon - f/u blood cx from 12/14/16 ngtd -Currently on Ancef therapy -Recent images reviewed -Appreciate NSG eval - Ct chest from 12/21 reviewed with radiology. phlegmon dimensions corrected. -Will need f/u MRI lower neck/upper chest to visualize all aspects of involvement better for next week. Radiology recommended to order it this way. Discussed with hospitalist team, they will arrange for. - Care coordinated with RN, hospitalist team -f/u in OP with Corie Santiago on 01/02/17 at 11:30am. - will fill out interagency. 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 3. HIV - on therapy 4. HBV - on therapy Meds Ancef 2g q8- 12/11/16. ---#13 from negative cultures. valtrex 1g q12- 12/21/16--#5/10 Subjective: AFebrile. sitting up in chair. a little anxious after phone call from , otherwise was feeling ready for discharge. Denies sob, abd pain, diarrhea. eating breakfast. Objective: Vital Signs Temp Pulse Resp BP Pulse Ox 36.9 C 71 12 117/79 100 12/26/16 07:06 12/26/16 07:06 12/26/16 07:06 12/26/16 07:06 12/26/16 07:06 Laboratory Results 12/24/16 04:15 12/24/16 04:15 12/25/16 12/26/16 12/27/16 05:59 05:59 05:59 Intake Total 275 1485 250 Output Total 1650 3031 700 Balance -9527 -2782 -033 - Physical Exam General Appearance: alert, no apparent distress EENT: other (ulcers much improved in posterior pharynx) Respiratory: lungs clear Cardiac/Chest: regular rate, rhythm Extremities: No swelling Abdomen: normal bowel sounds, non-tender, soft, No distended Skin: No erythema - Time Spent With Patient Time Spent with Patient: greater than 35 minutes Time Spent with Patient: Greater than 35 minutes spent on this patients care, greater than 50% of time spent counseling, educating, and coordinating care regarding the above mentioned plan. ICD10 Worksheet Patient Problems: Problems Problem Status Onset Intracranial hemorrhage Acute Laceration of head Acute Lip laceration Acute Renal insufficiency Acute C. difficile diarrhea Acute 10/30/14
--- NOTE | 2016-12-26 10:36 | PDIAF ---
- Diagnosis Diagnosis: mssa bacteremia/sepsis with epidural/mediastinal phlegmon Code Status: Full Code - Medication Management Discharge Medications: Medications to Continue on Transfer DULoxetine [Cymbalta 30 MG (*)] 30 mg PO BID 10/30/12 [Last Taken 12/09/16] Entecavir [Baraclude] 1 mg PO DAILY 10/30/12 [Last Taken 10/29/12] Ritonavir [Norvir] 100 mg PO DAILY 10/30/12 [Last Taken 12/09/16] Testosterone [Androgel 1% pump] 1 nas TP HS 10/30/12 [Last Taken 10/29/12] Atorvastatin Calcium 10 mg PO DAILY 12/10/16 [Last Taken 12/10/16] Darunavir Ethanolate [Prezista] 800 mg PO DAILY 12/10/16 [Last Taken 12/10/16] OLANZapine [Olanzapine] 5 mg PO HS 12/10/16 [Last Taken Unknown] Raltegravir Potassium [Isentress] 400 mg PO BID 12/10/16 [Last Taken 12/10/16 09 :00] Warfarin Sodium [Coumadin 4MG (*)] 2 mg PO TUFR@16 12/10/16 [Last Taken 12/08/16 ] Warfarin Sodium [Coumadin 4MG (*)] 4 mg PO SUMOWETHSA@16 12/10/16 [Last Taken ] lamiVUDine [Epivir 150 mg (*)] 150 mg PO HS 12/10/16 [Last Taken 12/09/16] Acetaminophen [Tylenol 325mg (*)] 650 mg PO TID tab 12/25/16 [Last Taken Unknown] Alteplase [Cathflo Activase 2 mg (*)] 2 mg IVP PRN PRN vial 12/25/16 [Last Taken Unknown] Benzocaine/Menthol 15/ [Cepacol Lozenge] 1 ea PO PRN PRN lozenge 12/25/16 [ Last Taken Unknown] Diazepam [Valium 5 MG (*)] 5 mg PO Q6HRS PRN tab 12/25/16 [Last Taken Unknown] Enoxaparin [Lovenox 80 MG (*)] 80 mg SC BID syr 12/25/16 [Last Taken Unknown] Ipratropium [Atrovent Neb (*)] 0.5 mg IH QID deyvial 12/25/16 [Last Taken Unknown] Levalbuterol 0.63 mg [Xopenex 0.63MG Neb (*)] 0.63 mg IH QID deyvial 12/25/16 [ Last Taken Unknown] Metoprolol Tartrate [Lopressor 25 mg (*)] 25 mg PO BID 12/25/16 [Last Taken ] Polyethylene Glycol 3350 [Miralax 17 gm (*)] 17 gm PO DAILY PRN pkt 12/25/16 [ Last Taken Unknown] Sennosides/Docusate Sodium [Senokot-S] 1 - 2 tab PO BID tab 12/25/16 [Last Taken Unknown] Teriparatide [Forteo] 2.4 ml SQ DAILY 12/25/16 [Last Taken Unknown] Zolpidem Tartrate [Ambien 5MG (*)] 5 - 10 mg PO HS PRN tab 12/25/16 [Last Taken Unknown] ceFAZolin SODIUM/DEXTROSE,ISO [Cefazolin-Dextrose 2 gm/100 ml] 2 gm IV Q8 #1 froz.piggy 12/25/16 [Last Taken Unknown] fentaNYL [Duragesic 25 MCG Patch (*)] 25 mcg TD Q72H patch 12/25/16 [Last Taken Unknown] oxyCODONE IR [Oxycodone Ir (*)] 5 - 15 mg PO Q3 PRN tab 12/25/16 [Last Taken Unknown] predniSONE 10 mg PO DAILY tab 12/25/16 [Last Taken Unknown] valACYclovir [Valtrex (*)] 1,000 mg PO Q12HRS tab 12/25/16 [Last Taken Unknown] Nursing Home Antibiotics: Ancef 2g IV q8 Mine 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 PICC Care - Routine: Yes - Orders Diet Recommendation: no restrictions on diet Diet Texture: Regular Texture Diet, Thin Liquids, Meds Whole w/Liquids - Labs/Radiology CBC Date: 01/01/17 (q mondays) CMP Date: 01/01/17 (q mondays) CRP Date: 01/01/17 (q mondays) Call or Fax Lab and Imaging Results to: fax to Corie Santiago- [phone] - Follow Up Care Current Providers and Referrals: Jose Zamora MD [Primary Care Provider] - As per Instructions Corie Santiago NP [Certified Nurse Practioner] - 01/02/17 11:30 am (f/u with Infectious Diseases Corie Santiago on 01/02/17 at 11:30am. Check in time: 11: 15am. Thank you. )
--- NOTE | 2016-12-26 11:01 | PDIAF ---
- Diagnosis Diagnosis: mssa bacteremia/sepsis with epidural/mediastinal phlegmon Code Status: Full Code - Medication Management Discharge Medications: Medications to Continue on Transfer DULoxetine [Cymbalta 30 MG (*)] 30 mg PO BID 10/30/12 [Last Taken 12/09/16] Entecavir [Baraclude] 1 mg PO DAILY 10/30/12 [Last Taken 10/29/12] Ritonavir [Norvir] 100 mg PO DAILY 10/30/12 [Last Taken 12/09/16] Testosterone [Androgel 1% pump] 1 nas TP HS 10/30/12 [Last Taken 10/29/12] Atorvastatin Calcium 10 mg PO DAILY 12/10/16 [Last Taken 12/10/16] Darunavir Ethanolate [Prezista] 800 mg PO DAILY 12/10/16 [Last Taken 12/10/16] OLANZapine [Olanzapine] 5 mg PO HS 12/10/16 [Last Taken Unknown] Raltegravir Potassium [Isentress] 400 mg PO BID 12/10/16 [Last Taken 12/10/16 09 :00] Warfarin Sodium [Coumadin 4MG (*)] 2 mg PO TUFR@16 12/10/16 [Last Taken 12/08/16 ] Warfarin Sodium [Coumadin 4MG (*)] 4 mg PO SUMOWETHSA@16 12/10/16 [Last Taken ] lamiVUDine [Epivir 150 mg (*)] 150 mg PO HS 12/10/16 [Last Taken 12/09/16] Acetaminophen [Tylenol 325mg (*)] 650 mg PO TID tab 12/25/16 [Last Taken Unknown] Alteplase [Cathflo Activase 2 mg (*)] 2 mg IVP PRN PRN vial 12/25/16 [Last Taken Unknown] Benzocaine/Menthol 15/ [Cepacol Lozenge] 1 ea PO PRN PRN lozenge 12/25/16 [ Last Taken Unknown] Diazepam [Valium 5 MG (*)] 5 mg PO Q6HRS PRN tab 12/25/16 [Last Taken Unknown] Enoxaparin [Lovenox 80 MG (*)] 80 mg SC BID syr 12/25/16 [Last Taken Unknown] Ipratropium [Atrovent Neb (*)] 0.5 mg IH QID deyvial 12/25/16 [Last Taken Unknown] Levalbuterol 0.63 mg [Xopenex 0.63MG Neb (*)] 0.63 mg IH QID deyvial 12/25/16 [ Last Taken Unknown] Metoprolol Tartrate [Lopressor 25 mg (*)] 25 mg PO BID 12/25/16 [Last Taken ] Polyethylene Glycol 3350 [Miralax 17 gm (*)] 17 gm PO DAILY PRN pkt 12/25/16 [ Last Taken Unknown] Sennosides/Docusate Sodium [Senokot-S] 1 - 2 tab PO BID tab 12/25/16 [Last Taken Unknown] Teriparatide [Forteo] 2.4 ml SQ DAILY 12/25/16 [Last Taken Unknown] Zolpidem Tartrate [Ambien 5MG (*)] 5 - 10 mg PO HS PRN tab 12/25/16 [Last Taken Unknown] ceFAZolin SODIUM/DEXTROSE,ISO [Cefazolin-Dextrose 2 gm/100 ml] 2 gm IV Q8 #1 froz.piggy 12/25/16 [Last Taken Unknown] fentaNYL [Duragesic 25 MCG Patch (*)] 25 mcg TD Q72H patch 12/25/16 [Last Taken Unknown] oxyCODONE IR [Oxycodone Ir (*)] 5 - 15 mg PO Q3 PRN tab 12/25/16 [Last Taken Unknown] predniSONE [Prednisone] 10 mg PO DAILY #4 tablet 12/26/16 [Last Taken Unknown] valACYclovir [Valtrex (*)] 1,000 mg PO BID #20 tab 12/26/16 [Last Taken Unknown] [employer] Antibiotics: Ancef 2g IV q8 [employer] 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 PICC Care - Routine: Yes - Orders Services needed: Registered Nurse, Certified Strategic Partner Development Manager, Master Coin Collector , Physical Therapy, Occupational Therapy Diet Recommendation: no restrictions on diet Diet Texture: Regular Texture Diet, Thin Liquids, Meds Whole w/Liquids - Labs/Radiology CBC Date: 01/01/17 (q mondays) CMP Date: 01/01/17 (q mondays) CRP Date: 01/01/17 (q mondays) Other Lab Name, Date and Time: mri of neck and upper chest to follow up on epidural abscess. 01/01/17 [facility] Call or Fax Lab and Imaging Results to: fax to Corie Santiago- [phone] - Follow Up Care Current Providers and Referrals: Jose Zamora MD [Primary Care Provider] - As per Instructions Corie Santiago NP [Certified Nurse Practioner] - 01/02/17 11:30 am (f/u with Infectious Diseases Corie Santiago on 01/02/17 at 11:30am. Check in time: 11: 15am. Thank you. )
--- NOTE | 2016-12-26 11:10 | ASMTCMCOM ---
CM Note CM Note Notes: Patient's MRI appointment is Sunday January 01, 2017 @ 9:15 AM with a check in at 9:00 AM [facility] imaging. Patient was informed and Mendy with [facility] was informed. Patient's transport time is 14:00. [place] is providing the transportation. Patient will call his to give her the time. D/C summaries faxed to [facility]. Date Signed: 12/26/2016 11:09 AM Electronically Signed By:Quita Oquendo LCSW
[2016-12-26 11:23] VITALS: BP 126/87; PULSE 76; RESP 20; TEMP 98.2; O2SAT 97
[2016-12-26] MEDS: Teriparatide [Forteo] 2.4 ML SQ SCH (11:54)
--- NOTE | 2016-12-26 12:13 | GDS ---
[f rep st] DISCHARGE SUMMARY DIAGNOSES: 1. Methicillin-sensitive Staphylococcus aureus bacteremia and sepsis with cervical epidural collecti on and retropharyngeal phlegmon, currently on long-term antibiotics. Needs followup imaging in [place] with an MRI of his neck and upper chest. 2. Herpes simplex virus pharyngeal ulcers, on Valtrex. 3. Human immunodeficiency virus, on therapy. 4. Hepatitis B virus, on therapy. 5. History of deep venous thrombosis associated with peripherally inserted central catheter (PICC) w ith previous pulmonary embolism, on long-term Coumadin. 6. Traumatic subarachnoid hemorrhage and subdural hemorrhage on admission, okay for anticoagulation per Neurosurgery. 7. Reactive airways disease, on prednisone taper. 8. Fracture of his right toe. Pain control. 9. Hepatitis C, status post treatment with negative viral load. 10. Neck and back pain, on continuous opioid treatment. CONSULTATIONS: Include Infectious Disease, [facility], Neurosurgery, Óscar Alcala, Trauma, Dr. Starr concepcion. PROCEDURES DONE: 1. Head CT. 2. Spine CT. 3. Abdominal ultrasound. 4. Lower extremity Dopplers. Negative for DVT. 5. Cervical and thoracic MRI of the spine: Epidural fluid collection versus phlegmon extending from C6-C7 to T3. No evidence of osteomyelitis or infected disk space. 6. Chest CT: Bibasilar consolidation with pleural effusions. 7. Ultrasound-guided thoracentesis. 8. Followup thoracic and spine MRI and followup chest CT showing stabilization of phlegmon and epidu ral abscess. 9. PICC line placement. HOSPITAL COURSE: The patient is a 66-year-old with HIV disease, who had been complaining of upper ba ck pain. On the day of admission, he presented to the ER with a fall and headache. CT scan revealed small subarachnoid and subdural hemorrhages. His warfarin was discontinued. Further evaluation of his back complaints revealed a fluid collection. Blood cultures eventually revealed MSSA, and it was felt like he had significant Staph aureus bacteremia with secondary abscesses noted. He was placed on IV antibiotics and monitored for several days in the hospital regarding treatment success, as ther e was concern for possible need for drainage. Neurosurgery was involved in his care. They felt that he did not need urgent debridement of his phlegmons noted and wanted to watch him on therapy. If he does not improve with IV therapy or his symptoms worsen or the fluid collection gets bigger, he woul d need debridement at that time. Followup chest CT did show slight improvement in his abscess, and t he plan at this time is to go forward with 8 weeks of antibiotic therapy. We will repeat an MRI in 1 week, and from there, further imaging will be determined. He will follow up with [facility]. Other medical issues that arrived: He had some mild renal insufficiency. His Lasix has been discont inued. His renal function has stabilized. He has HIV disease, which has been stable on his current medications. He had a mild reactive airways exacerbation, which responded to prednisone and nebulize rs. He is on a prednisone taper. He also developed a cold sore in his mouth and is on Valtrex for t herapy for that. He is on therapy for hepatitis B, as well. CONDITION ON DISCHARGE: Fair. He continues to have some upper back pain, intermittent knee pain wit hout any evidence of infection or swelling. He is afebrile. Heart rate 71, blood pressure 117/79. He is 100% on CPAP while sleeping and 96% on room air during the day. He is alert and oriented. DISCHARGE MEDICATIONS: Please see discharge medication form. FOLLOWUP: He will be discharged to [facility], where they will continue with IV antibio tics. He has followup lab tests and imaging ordered that will be followed by [facility]. Total time spent with the patient on day of discharge and coordination of care is 45 minutes. /[id number]/MODL
[2016-12-26] MEDS: ENTECAVIR 1 MG PO SCH (12:29)
--- NOTE | 2016-12-27 16:31 | ASDISCHSUM ---
Discharge Information Plan Status:SNF Medically Cleared to Leave:12/26/2016 Discharge Date:12/26/2016 01:50 PM D/C Disposition:Prison Facility ADT D/C Disposition:Prison Facility Projected Discharge Date:12/26/2016 02:00 PM Transportation at D/C: Discharge Delay Reason: Follow-Up Date:12/26/2016 02:00 PM Discharge Slot: Final Diagnosis: Placement Information Referral Type:*Prison/SNF Referral ID:-[id number] Provider Name:[facility] Address 1:[address] Address 2: City:[place] Selection Factors: State:[place] Referral Type:*Prison/SNF Referral ID:-[id number] Provider Name:[facility] Address 1:[address] Address 2: City:[place] Selection Factors: State:[place] Patient Contact Information Contact Name:LA Relationship: Address:[address] City:[place] Alternate Phone: State/Zip Code:[place] [address] Email: Financial Information Financial Class:Medicare Advantage Plans Primary Plan Desc:[facility] Primary Plan Number:[id number] Secondary Plan Desc: Secondary Plan Number: Assessment Information [facility] CM Progress Note CM Note CM Note Notes: PT recommending SNF at this time. OT recommending Inpt. Rehab. Pt. still quite ill. Per RN, Pt is very close to his step daughter and step son. Step daughter Luz Elena is an RN at [facility]. Pt. to get picc soon. RN states Pt. amenable to d/cing to SNF or Inpatient Rehab. Pt. w/ [employer] insurance. Sent [employer] [facility] for [facility]/c POC. Date Signed: 12/15/2016 05:21 PM Electronically Signed By:Arlene Ndiaye LCSW [facility] CM Progress Note CM Note CM Note Notes: Spoke w/, pt still quite ill dc date unclear. Pt may need snf, referrals sent to [facility] w/f Date Signed: 12/18/2016 03:32 PM Electronically Signed By:Krystina Zaidi RN [facility] CM Progress Note CM Note CM Note Notes: Today Mini from Inpatient Rehab spoke with Pt. and in room. Pt. states he used to work at [facility] Inpt Rehab and due to past circumstances prefers NOT to go there. is researching [facility] and [facility] at this time per Mini. Faxes already sent via [employer] message for Karen to coordinate d/c POC preferences. CM to follow. Date Signed: 12/20/2016 02:03 PM Electronically Signed By:Arlene Ndiaye LCSW [facility] CM Progress Note CM Note CM Note Notes: Spoke w/pt this AM, has chosen [facility] for rehab when ready to discharge. notified Mendy and sent updated notes. Date Signed: 12/22/2016 10:58 AM Electronically Signed By:Krystina Zaidi RN [facility] Progress Note CM Note CM Note Notes: Spoke with pt regarding the HIV/Hep B meds he will need to take w/him to [facility]. He couldn't remember which ones they were so hospitalist identified them on med list. Pt provided with list and will ask his daughter to bring the listed meds in tonight when she brings clothes for him to go to SNF with. Pt is asking CM to call Ctr at to ask if any of the listed meds are in their formulary as they're very expensive and he'd rather use their meds (with insurance possibly paying?) than his own. Pt may d/c Sunday after imaging. Date Signed: 12/24/2016 03:45 PM Electronically Signed By:EVERARDO Kwong [facility] JUJU Progress Note CM Note CM Note Notes: Patient was originally to d/c today. However, [facility] has to order a K Pad ( continuous heat by warmed water) for patient to manage his pain and ability to sleep through the night. Mendy has ordered this evening and it should arrive tomorrow. Patient also needs to return in 1 week for an MRI. Mendy states they can bring him for his appointment but it needs to be already scheduled. Lesly, patient's nurse, is working on the MRI appointment and will give me the information when she has it. Patient was informed he will d/c tomorrow when the final details are in place. Patient was relieved. Transportation will be set up tomorrow. CM to follow. Date Signed: 12/25/2016 04:56 PM Electronically Signed By:Quita Oquendo LCSW [facility] CM Progress Note CM Note CM Note Notes: Patient's MRI appointment is Sunday January 01, 2017 @ 9:15 AM with a check in at 9:00 AM [facility] imaging. Patient was informed and Mendy with [facility] was informed. Patient's transport time is 14:00. [place] is providing the transportation. Patient will call his to give her the time. D/C summaries faxed to [facility]. Date Signed: 12/26/2016 11:09 AM Electronically Signed By:Quita Oquendo LCSW Intervention Information Intervention Type:*IM-Signed Date of Service:12/22/2016 11:40 AM Patient Type:Inpatient Staff Member:Kamille Bush Hours: Discipline: Severity: Comment: Intervention Type:*IM-Signed Date of Service:12/26/2016 10:18 AM Patient Type:Inpatient Staff Member:Kamille Bush Hours: Discipline: Severity: Comment:
== END 2016-12-26 13:50 | DRG 871 ==
LOC: F2N 22:52 → F3E 12-14 11:19
PROVIDERS: ADMIT Internal Medicine; ATTEND Internal Medicine
PROC: 0HQ0XZZ Repair Scalp Skin, External Approach (ICD-10-PCS; principal; 2016-12-10)
PROC: 09JK4ZZ Inspection of Nasal Mucosa and Soft Tissue, Percutaneous Endoscopic Approach (ICD-10-PCS; 2016-12-12)
PROC: 0CJY8ZZ Inspection of Mouth and Throat, Via Natural or Artificial Opening Endoscopic (ICD-10-PCS; 2016-12-12)
PROC: 0W9B3ZX Drainage of Left Pleural Cavity, Percutaneous Approach, Diagnostic (ICD-10-PCS; 2016-12-12)
PROC: 02HV33Z Insertion of Infusion Device into Superior Vena Cava, Percutaneous Approach (ICD-10-PCS; 2016-12-19)
PROC: 02HV33Z Insertion of Infusion Device into Superior Vena Cava, Percutaneous Approach (ICD-10-PCS; 2016-12-22)
PROC: 02PA33Z Removal of Infusion Device from Heart, Percutaneous Approach (ICD-10-PCS; 2016-12-22)
DX: A41.01 Sepsis due to Methicillin susceptible Staphylococcus aureus (principal); S06.6X0A Traumatic subarachnoid hemorrhage without loss of consciousness, initial encounter; G06.2 Extradural and subdural abscess, unspecified; S06.5X0A Traumatic subdural hemorrhage without loss of consciousness, initial encounter; J39.1 Other abscess of pharynx; B00.2 Herpesviral gingivostomatitis and pharyngotonsillitis; B19.10 Unspecified viral hepatitis B without hepatic coma; J90 Pleural effusion, not elsewhere classified; S01.01XA Laceration without foreign body of scalp, initial encounter; S92.421A Displaced fracture of distal phalanx of right great toe, initial encounter for closed fracture; S01.511A Laceration without foreign body of lip, initial encounter; D53.9 Nutritional anemia, unspecified; E78.5 Hyperlipidemia, unspecified; J45.909 Unspecified asthma, uncomplicated; B19.20 Unspecified viral hepatitis C without hepatic coma; W19.XXXA Unspecified fall, initial encounter; Y92.013 Bedroom of single-family (private) house as the place of occurrence of the external cause; Z21 Asymptomatic human immunodeficiency virus [HIV] infection status; Z79.01 Long term (current) use of anticoagulants; Z86.711 Personal history of pulmonary embolism; Z86.718 Personal history of other venous thrombosis and embolism; Z87.891 Personal history of nicotine dependence
CPT/HCPCS: 87529-90; 92507-GN; 92523-GN; 92526-GN; 92610-GN; 97110-GO; 97110-GP; 97112-GP; 97116-GP; 97162-GP; 97166-GO; 97530-GO; 97530-GP; 97532-GO; 97535-GO; A9585; C1751; G0480; G8978-GP-CJ; G8978-GP-CK; G8978-GP-CM; G8979-GP-CI; G8987-GO-CI; G8987-GO-CK; G8987-GO-CL; G8988-GO-CI; G8989-GO-CI; G8996-GN-CI; G8997-GN-CI; G9168-GO-CI; G9169-GN-CH; J0456; J0690; J0696; J1170; J1650; J1885; J1940; J2060; J3010; J3370; J3430; Q9967

== ENCOUNTER → 2017-01-02 | Outpatient (CLI) | payer OTHER ==
[~2017-01-02] MED LIST: IOPAMIDOL (ISOVUE 370) 100 ML BTL IV ONE
== END ==
LOC: FIMAGING 13:17
PROVIDERS: ATTEND Nurse Practitioner
DX: I71.2 Thoracic aortic aneurysm, without rupture (principal); M46.44 Discitis, unspecified, thoracic region; J40 Bronchitis, not specified as acute or chronic
CPT/HCPCS: 71275; Q9967

== ENCOUNTER → 2017-01-02 | Outpatient (CLI) | payer OTHER ==
[~2017-01-02] MED LIST changes: +GADOBUTROL 10 ML VIAL IVP ONE; -IOPAMIDOL (ISOVUE 370) 100 ML BTL IV ONE
== END ==
LOC: FIMAGING 08:23
PROVIDERS: ATTEND Internal Medicine Infectious Disease
DX: G06.1 Intraspinal abscess and granuloma (principal); M46.43 Discitis, unspecified, cervicothoracic region
CPT/HCPCS: 72156; 72157; A9585

== ENCOUNTER → 2017-01-31 | Outpatient (CLI) | payer OTHER | LOC: FIMAGING 08:40 | PROVIDERS: ATTEND Nurse Practitioner | DX: M46.42 Discitis, unspecified, cervical region (principal); M46.44 Discitis, unspecified, thoracic region; M46.24 Osteomyelitis of vertebra, thoracic region | CPT/HCPCS: 72156; 72157; A9585 ==

== ENCOUNTER → 2017-03-28 | Outpatient (CLI) | payer OTHER | LOC: FIMAGING 12:02 | PROVIDERS: ATTEND Nurse Practitioner | DX: G06.2 Extradural and subdural abscess, unspecified (principal) | CPT/HCPCS: 72156; 72157; A9585 ==

== ENCOUNTER → 2017-06-21 | Outpatient (CLI) | payer OTHER | LOC: FIMAGING 10:21 | PROVIDERS: ATTEND Nurse Practitioner | DX: K82.9 Disease of gallbladder, unspecified (principal); K76.0 Fatty (change of) liver, not elsewhere classified; B18.1 Chronic viral hepatitis B without delta-agent ==

== ENCOUNTER → 2017-07-04 | Outpatient (CLI) | payer OTHER | LOC: FIMAGING 14:43 | PROVIDERS: ATTEND Internal Medicine | DX: M25.552 Pain in left hip (principal); M25.551 Pain in right hip; M54.30 Sciatica, unspecified side ==

== ENCOUNTER → 2017-07-04 | Outpatient (CLI) | payer OTHER | LOC: FIMAGING 10:46 | PROVIDERS: ATTEND Nurse Practitioner | DX: G06.2 Extradural and subdural abscess, unspecified (principal); M99.72 Connective tissue and disc stenosis of intervertebral foramina of thoracic region; M51.34 Other intervertebral disc degeneration, thoracic region; M50.31 Other cervical disc degeneration, high cervical region; M50.321 Other cervical disc degeneration at C4-C5 level; M50.322 Other cervical disc degeneration at C5-C6 level; M50.323 Other cervical disc degeneration at C6-C7 level; M50.33 Other cervical disc degeneration, cervicothoracic region; M99.71 Connective tissue and disc stenosis of intervertebral foramina of cervical region; M12.88 Other specific arthropathies, not elsewhere classified, other specified site | CPT/HCPCS: 72156; 72157; A9585 ==

== ENCOUNTER → 2017-12-14 | Outpatient (CLI) | payer OTHER | LOC: FIMAGING 09:31 | PROVIDERS: ATTEND Internal Medicine | DX: I77.811 Abdominal aortic ectasia (principal); K87 Disorders of gallbladder, biliary tract and pancreas in diseases classified elsewhere; N20.0 Calculus of kidney; B18.1 Chronic viral hepatitis B without delta-agent ==

== ENCOUNTER → 2017-12-24 | Outpatient (CLI) | payer OTHER | LOC: FIMAGING 11:26 | PROVIDERS: ATTEND Internal Medicine | DX: G31.9 Degenerative disease of nervous system, unspecified (principal); I67.2 Cerebral atherosclerosis ==

== ENCOUNTER → 2018-04-12 | Outpatient (CLI) | payer OTHER | LOC: FCPNEURO 21:30 | PROVIDERS: ATTEND Student in an Organized Health Care Education/Training Program | DX: G47.39 Other sleep apnea (principal) ==

== ENCOUNTER → 2018-06-19 | Outpatient (CLI) | payer OTHER | LOC: FIMAGING 08:34 | PROVIDERS: ATTEND Internal Medicine | DX: B18.1 Chronic viral hepatitis B without delta-agent (principal) ==

== ENCOUNTER → 2018-08-07 | Outpatient (CLI) | payer OTHER | LOC: FIMAGING 09:41 | PROVIDERS: ATTEND Internal Medicine Hematology & Oncology | DX: Z12.89 Encounter for screening for malignant neoplasm of other sites (principal); C61 Malignant neoplasm of prostate | CPT/HCPCS: 78306; A9503 ==